=== PATIENT | male | born 1965 | race Caucasian/White ===

== ENCOUNTER → 2016-06-30 | Outpatient (CLI) | payer MEDICAID, MEDICARE | LOC: RAD 10:24 | PROVIDERS: ATTEND Urology | DX: N31.9 Neuromuscular dysfunction of bladder, unspecified (principal); R39.14 Feeling of incomplete bladder emptying | CPT/HCPCS: 76770 ==

== ENCOUNTER 2016-07-02 07:38 | Outpatient (CLI) | payer MEDICARE ==
[~2016-07-02 07:38] MED LIST: CONTAINER EMPTY IV PRN; DEXAMETHASONE SOD PHOS INJ 10 MG/1 ML VIAL IV PRN; DEXTROSE 5%-WATER 250 ML IV PRN; DIPHENHYDRAMINE HCL 50 MG/ML VIAL IV PRN; IMMUNE GLOB GAM CAPRY IV PRN; IMMUNE GLOB GAM CAPRYLATE IV PRN; [UNRECOGNIZED DRUG - OTHER] IV PRN
[2016-07-02 09:02] VITALS: BP 121/56
== END 2016-07-02 11:13 | disposition home or self-care (01) ==
LOC: II 07:38 → 5TH 07:39 → II 11:13
PROVIDERS: ATTEND Specialist
PROC: 3E033WK Introduction of Immunostimulator into Peripheral Vein, Percutaneous (ICD-10-PCS; principal; 2016-07-02)
PROC: 3E033GC Introduction of Other Therapeutic Substance into Peripheral Vein, Percutaneous Approach (ICD-10-PCS; 2016-07-02)
DX: D80.1 Nonfamilial hypogammaglobulinemia (principal)
CPT/HCPCS: 96365; 96366; 96375; J1561 ×2; J1200; A9270; J1100; 96367; J3490

== ENCOUNTER 2016-07-30 09:46 | Outpatient (CLI) | payer MEDICARE ==
[~2016-07-30 09:46] MED LIST changes: -CONTAINER EMPTY IV PRN; -IMMUNE GLOB GAM CAPRY IV PRN; -IMMUNE GLOB GAM CAPRYLATE IV PRN; +IMMUNE GLOB,GAM CAPRYLATE(IGG) 10 GM, IMMUNE GLOB,GAM CAPRYLATE(IGG) 20 GM in CONTAINER... IV PRN; -[UNRECOGNIZED DRUG - OTHER] IV PRN
[2016-07-30 10:46] VITALS: BP 117/68
== END 2016-07-30 13:09 | disposition hospice, home (50) ==
LOC: 5TH 09:46 → II 09:46
PROVIDERS: ATTEND Internal Medicine
PROC: 3E043GC Introduction of Other Therapeutic Substance into Central Vein, Percutaneous Approach (ICD-10-PCS; principal; 2016-07-30)
PROC: 3E043GC Introduction of Other Therapeutic Substance into Central Vein, Percutaneous Approach (ICD-10-PCS; 2016-07-30)
PROC: 3E043GC Introduction of Other Therapeutic Substance into Central Vein, Percutaneous Approach (ICD-10-PCS; 2016-07-30)
DX: D80.1 Nonfamilial hypogammaglobulinemia (principal)
CPT/HCPCS: 96365; 96366; 96375; J1561 ×2; J1200; A9270; J1100; 96367; J3490

== ENCOUNTER → 2016-08-05 | Outpatient (CLI) | payer MEDICAID, MEDICARE | LOC: RAD 09:19 | PROVIDERS: ATTEND Specialist | DX: R91.1 Solitary pulmonary nodule (principal); D80.1 Nonfamilial hypogammaglobulinemia; K92.1 Melena; R10.9 Unspecified abdominal pain | CPT/HCPCS: 71020; 74150 ==

== ENCOUNTER 2016-08-27 08:20 | Outpatient (CLI) | payer MEDICARE ==
[~2016-08-27 08:20] MED LIST changes: +DEXAMETHASONE SOD PHOSPHATE 10 MG in NORMAL SALINE 50 ML IV PRN; -IMMUNE GLOB,GAM CAPRYLATE(IGG) 10 GM, IMMUNE GLOB,GAM CAPRYLATE(IGG) 20 GM in CONTAINER... IV PRN; +IMMUNE GLOB,GAM CAPRYLATE(IGG) 20 GM, IMMUNE GLOB,GAM CAPRYLATE(IGG) 10 GM in CONTAINER... IV PRN
[2016-08-27 09:07] VITALS: BP 160/58
== END 2016-08-27 11:32 | disposition home or self-care (01) ==
LOC: II 08:20 → 5TH 08:21 → II 11:32
PROVIDERS: ATTEND Specialist
PROC: 3E033GC Introduction of Other Therapeutic Substance into Peripheral Vein, Percutaneous Approach (ICD-10-PCS; principal; 2016-08-27)
PROC: 3E033GC Introduction of Other Therapeutic Substance into Peripheral Vein, Percutaneous Approach (ICD-10-PCS; 2016-08-27)
PROC: 3E033GC Introduction of Other Therapeutic Substance into Peripheral Vein, Percutaneous Approach (ICD-10-PCS; 2016-08-27)
PROC: 3E033GC Introduction of Other Therapeutic Substance into Peripheral Vein, Percutaneous Approach (ICD-10-PCS; 2016-08-27)
PROC: 3E033GC Introduction of Other Therapeutic Substance into Peripheral Vein, Percutaneous Approach (ICD-10-PCS; 2016-08-27)
PROC: 3E033GC Introduction of Other Therapeutic Substance into Peripheral Vein, Percutaneous Approach (ICD-10-PCS; 2016-08-27)
PROC: 3E033GC Introduction of Other Therapeutic Substance into Peripheral Vein, Percutaneous Approach (ICD-10-PCS; 2016-08-27)
DX: D80.1 Nonfamilial hypogammaglobulinemia (principal)
CPT/HCPCS: 96365; 96366; 96375; J1561 ×2; J1200; A9270; J1100; 96374; J3490

== ENCOUNTER → 2016-08-29 | Outpatient (CLI) | payer MEDICARE ==
[2016-08-29 15:19] LABS: APPEARANCE,URINE CLEAR; BILIRUBIN,URINE NEGATIVE (NEGATIVE); GLUCOSE, URINE 50 mg/dL (NEGATIVE); KETONES,URINE NEGATIVE (NEGATIVE); LEUKOCYTE ESTERASE,URINE NEGATIVE (NEGATIVE); NITRITE,URINE NEGATIVE (NEGATIVE); PROTEIN,URINE NEGATIVE (NEGATIVE); URINE SPECIFIC GRAVITY 1.003; UROBILINOGEN,URINE NEGATIVE mg/dL (<2.0)
[2016-08-29 15:40] LABS: ANION GAP 17 (5-19); BLOOD UREA NITROGEN 33 mg/dL (7-20); CALCIUM 9.3 mg/dL (8.4-10.2); CARBON DIOXIDE 28 mmol/L (22-30); CHLORIDE 92 mmol/L (98-107); CREATININE RESULT 1.64 mg/dL (0.52-1.25); GLUCOSE 259 mg/dL (75-110); POTASSIUM 3.4 mmol/L (3.6-5.0); SODIUM 136.9 mmol/L (137-145)
[2016-08-31 08:37] LABS: CREATININE URINE 24.6 mg/dL (Not Estab.); MICROALBUMIN URINE 10.6 ug/mL (Not Estab.)
== END ==
LOC: OD 14:01
PROVIDERS: ATTEND Internal Medicine Nephrology
DX: N18.3 Chronic kidney disease, stage 3 (moderate) (principal)
CPT/HCPCS: 36415; 80048; 81001; 82043; 82570

== ENCOUNTER → 2016-09-09 | Outpatient (CLI) | payer MEDICARE ==
[2016-09-09 12:25] LABS: ABSOLUTE BASOPHILS # (AUTO) 0.1 10^3/uL (0.0-0.2); ABSOLUTE EOSINOPHILS # (AUTO) 0.2 10^3/uL (0.0-0.6); ABSOLUTE LYMPHOCYTES (AUTO) 0.8 10^3/uL (0.5-4.7); ABSOLUTE MONOCYTES (AUTO) 0.5 10^3/uL (0.1-1.4); ABSOLUTE NEUT (AUTO) 11.7 10^3/uL (1.7-8.2); BASOPHILS % (AUTO) 0.9 % (0-2); EOSINOPHILS % (AUTO) 1.3 % (0-6); HEMATOCRIT 25.3 % (37.9-51.0); HGB HCT DIFFERENCE -1.6; LYMPHOCYTES % (AUTO) 5.9 % (13-45); MEAN CORPUSCULAR HEMOGLOBIN 22.8 pg (27.0-33.4); MEAN CORPUSCULAR HGB CONC 31.4 g/dL (32.0-36.0); MEAN CORPUSCULAR VOLUME 73 fl (80-97); RED BLOOD COUNT 3.49 10^6/uL (4.35-5.55); RED CELL DISTRIBUTION WIDTH 19.2 % (11.5-14.0); SEGMENTED NEUTROPHILS % (AUTO) 87.9 % (42-78); WHITE BLOOD COUNT 13.3 10^3/uL (4.0-10.5)
[2016-09-09 12:38] LABS: ANION GAP 15 (5-19); BLOOD UREA NITROGEN 18 mg/dL (7-20); CALCIUM 9.3 mg/dL (8.4-10.2); CARBON DIOXIDE 26 mmol/L (22-30); CHLORIDE 102 mmol/L (98-107); CREATININE RESULT 1.53 mg/dL (0.52-1.25); GLUCOSE 281 mg/dL (75-110); POTASSIUM 5.1 mmol/L (3.6-5.0); SODIUM 142.6 mmol/L (137-145)
[2016-09-09 12:51] LABS: HEMOGLOBIN 7.9 g/dL (13.5-17.0)
== END ==
LOC: OD 09:25
PROVIDERS: ATTEND Family Medicine
DX: J40 Bronchitis, not specified as acute or chronic (principal); I50.9 Heart failure, unspecified
CPT/HCPCS: 36415; 71020; 80048; 83880; 85025

== ENCOUNTER 2016-09-12 12:35 | Outpatient (CLI) | payer MEDICARE ==
[2016-09-12 13:09] LABS: HEMOGLOBIN 8.4 g/dL (13.5-17.0); HGB HCT DIFFERENCE -0.8; MEAN CORPUSCULAR HEMOGLOBIN 23.3 pg (27.0-33.4); MEAN CORPUSCULAR HGB CONC 32.2 g/dL (32.0-36.0); MEAN CORPUSCULAR VOLUME 72 fl (80-97); RED CELL DISTRIBUTION WIDTH 19.7 % (11.5-14.0); WHITE BLOOD COUNT 15.4 10^3/uL (4.0-10.5)
[2016-09-12] MEDS ORDERED: NORMAL SALINE 1000 ML 1,000 ML IV PRN (13:49)
[2016-09-12] MEDS ORDERED: FUROSEMIDE INJ/PF 20 MG/2 ML SDV IV PRN (13:50)
[2016-09-12] MEDS ORDERED: ACETAMINOPHEN 325 MG TABLET PO PRN (13:50)
[2016-09-12] MEDS ORDERED: DIPHENHYDRAMINE HCL 25 MG CAPSULE PO PRN (13:50)
[2016-09-12 20:01] VITALS: BP 166/74
== END 2016-09-12 20:27 | disposition home or self-care (01) ==
LOC: II 12:35 → 2N 12:39 → 2S 17:15 → II 20:27
PROVIDERS: ATTEND Specialist
PROC: 30233N1 Transfusion of Nonautologous Red Blood Cells into Peripheral Vein, Percutaneous Approach (ICD-10-PCS; principal; 2016-09-12)
DX: D64.9 Anemia, unspecified (principal)
CPT/HCPCS: 86900; 86901; 36430; 86850; 86920; P9016; J1940

== ENCOUNTER 2016-09-19 09:02 | Outpatient (CLI) | payer MEDICARE ==
[~2016-09-19 09:02] MED LIST changes: -DEXAMETHASONE SOD PHOS INJ 10 MG/1 ML VIAL IV PRN; -DEXAMETHASONE SOD PHOSPHATE 10 MG in NORMAL SALINE 50 ML IV PRN; -DEXTROSE 5%-WATER 250 ML IV PRN; -DIPHENHYDRAMINE HCL 50 MG/ML VIAL IV PRN; +FERUMOXYTOL (NON-ESRD) 510 MG/NS 100 ML IV PRN; -IMMUNE GLOB,GAM CAPRYLATE(IGG) 20 GM, IMMUNE GLOB,GAM CAPRYLATE(IGG) 10 GM in CONTAINER... IV PRN; +NORMAL SALINE 250 ML IV PRN
[2016-09-19 09:43] VITALS: BP 143/72
== END 2016-09-19 10:25 | disposition home or self-care (01) ==
LOC: II 09:02 → 5TH 09:15 → II 10:25
PROVIDERS: ATTEND Specialist
PROC: 3E033GC Introduction of Other Therapeutic Substance into Peripheral Vein, Percutaneous Approach (ICD-10-PCS; principal; 2016-09-19)
DX: D50.0 Iron deficiency anemia secondary to blood loss (chronic) (principal); N18.3 Chronic kidney disease, stage 3 (moderate)
CPT/HCPCS: 96374; Q0138; 96365

== ENCOUNTER 2016-09-26 08:33 | Outpatient (CLI) | payer MEDICARE ==
[~2016-09-26 08:33] MED LIST changes: +DEXAMETHASONE SOD PHOSPHATE 10 MG in NORMAL SALINE 50 ML IV PRN; +DEXTROSE 5%-WATER 250 ML IV PRN; +DIPHENHYDRAMINE HCL 50 MG/ML VIAL IV PRN; +IMMUNE GLOB,GAM CAPRYLATE(IGG) 20 GM, IMMUNE GLOB,GAM CAPRYLATE(IGG) 10 GM in CONTAINER... IV PRN
[2016-09-26 08:54] VITALS: BP 145/78
== END 2016-09-26 11:14 | disposition home or self-care (01) ==
LOC: 5TH 08:33 → II 08:33
PROVIDERS: ATTEND Specialist
PROC: 3E033WK Introduction of Immunostimulator into Peripheral Vein, Percutaneous (ICD-10-PCS; principal; 2016-09-26)
PROC: 3E0333Z Introduction of Anti-inflammatory into Peripheral Vein, Percutaneous Approach (ICD-10-PCS; 2016-09-26)
DX: D80.1 Nonfamilial hypogammaglobulinemia (principal); D50.0 Iron deficiency anemia secondary to blood loss (chronic); N18.3 Chronic kidney disease, stage 3 (moderate)
CPT/HCPCS: 96365; 96366; 96367; 96375; 96361; J1561 ×2; Q0138; J1200; A9270; J1100; 96360; J3490

== ENCOUNTER → 2016-09-29 | Outpatient (CLI) | payer MEDICARE ==
[2016-09-29 12:36] LABS: APPEARANCE,URINE CLEAR; BILIRUBIN,URINE NEGATIVE (NEGATIVE); GLUCOSE, URINE NEGATIVE (NEGATIVE); KETONES,URINE NEGATIVE (NEGATIVE); LEUKOCYTE ESTERASE,URINE NEGATIVE (NEGATIVE); NITRITE,URINE NEGATIVE (NEGATIVE); PROTEIN,URINE NEGATIVE (NEGATIVE); URINE SPECIFIC GRAVITY 1.013; UROBILINOGEN,URINE NEGATIVE mg/dL (<2.0)
[2016-09-29 12:41] LABS: ABSOLUTE BASOPHILS # (AUTO) 0.2 10^3/uL (0.0-0.2); ABSOLUTE EOSINOPHILS # (AUTO) 0.4 10^3/uL (0.0-0.6); ABSOLUTE LYMPHOCYTES (AUTO) 2.8 10^3/uL (0.5-4.7); ABSOLUTE MONOCYTES (AUTO) 1.2 10^3/uL (0.1-1.4); ABSOLUTE NEUT (AUTO) 5.9 10^3/uL (1.7-8.2); EOSINOPHILS % (AUTO) 3.8 % (0-6); HEMOGLOBIN 11.9 g/dL (13.5-17.0); HGB HCT DIFFERENCE -0.3; LYMPHOCYTES % (AUTO) 26.4 % (13-45); MEAN CORPUSCULAR HEMOGLOBIN 24.8 pg (27.0-33.4); MEAN CORPUSCULAR HGB CONC 32.9 g/dL (32.0-36.0); MEAN CORPUSCULAR VOLUME 75 fl (80-97); MONOCYTES % (AUTO) 11.1 % (3-13); RED BLOOD COUNT 4.78 10^6/uL (4.35-5.55); RED CELL DISTRIBUTION WIDTH 22.8 % (11.5-14.0); SEGMENTED NEUTROPHILS % (AUTO) 56.7 % (42-78); WHITE BLOOD COUNT 10.4 10^3/uL (4.0-10.5)
[2016-09-29 12:50] LABS: ANION GAP 14 (5-19); BLOOD UREA NITROGEN 31 mg/dL (7-20); CALCIUM 9.5 mg/dL (8.4-10.2); CARBON DIOXIDE 28 mmol/L (22-30); CHLORIDE 101 mmol/L (98-107); CREATININE RESULT 1.62 mg/dL (0.52-1.25); GLUCOSE 145 mg/dL (75-110); POTASSIUM 4.6 mmol/L (3.6-5.0); SODIUM 142.8 mmol/L (137-145)
[2016-09-30 12:38] LABS: CREATININE URINE 106.1 mg/dL (Not Estab.); MICROALBUMIN URINE 15.5 ug/mL (Not Estab.)
== END ==
LOC: OD 11:15
PROVIDERS: ATTEND Internal Medicine Nephrology
DX: N18.3 Chronic kidney disease, stage 3 (moderate) (principal); R60.0 Localized edema; I99.9 Unspecified disorder of circulatory system
CPT/HCPCS: 36415; 80048; 81001; 82043; 82570; 85025

== ENCOUNTER 2016-10-08 07:30 | Day surgery (SDC) | payer MEDICARE ==
[~2016-10-08 07:30] MED LIST changes: -DEXAMETHASONE SOD PHOSPHATE 10 MG in NORMAL SALINE 50 ML IV PRN; -DEXTROSE 5%-WATER 250 ML IV PRN; -DIPHENHYDRAMINE HCL 50 MG/ML VIAL IV PRN; +DIPHENHYDRAMINE HCL 50 MG/ML VIAL ONE; +EPINEPHRINE INJ 1 MG/10 ML DISP.SYRIN ONE; -FERUMOXYTOL (NON-ESRD) 510 MG/NS 100 ML IV PRN; +FLUMAZENIL INJ 0.5 MG/5 ML VIAL IV ONE; +GLUCAGON,HUMAN RECOMB 1 MG INJ ONE; -IMMUNE GLOB,GAM CAPRYLATE(IGG) 20 GM, IMMUNE GLOB,GAM CAPRYLATE(IGG) 10 GM in CONTAINER... IV PRN; +NALOXONE HCL INJ/PF 0.4 MG/1 ML SDV ONE; -NORMAL SALINE 250 ML IV PRN; +ONDANSETRON HCL INJ/PF 4 MG/2 ML SDV ONE
[2016-10-08] MEDS: MIDAZOLAM 2 MG/2 ML INJ ONE ×4 (08:15→08:35)
[2016-10-08] MEDS: FENTANYL CITRATE INJ/PF 100 MCG/2 ML AMPUL ONE ×3 (08:17→08:40)
--- NOTE | 2016-10-08 09:45 | Operative Report ---
Operative Report DATE OF SURGERY: 10/08/16 Operative Report: The risks benefits and alternatives of the procedure explained to the patient in detail and informed consent is obtained that GIF Olympus video scope was inserted into the patient's mouth and hypopharynx the esophagus is identified intubated and insufflated the scope was then advanced through the esophagus stomach and duodenum retroflexion maneuver is done the esophagus stomach and first and second portions of the duodenum examined The risks, benefits and alternatives of the procedure including risks of bleeding, perforation requiring surgery are explained to the patient detail and informed consent is obtained. Patient is taken back to the endoscopy suite and placed in a left, lateral decubital position. A rectal examination was done which did not reveal any masses, tears or fissures. Timeout is called. Conscious sedation medications are provided. An Olympus video scope was inserted into the patient's rectum. The scope was then gradually advanced all the way to the cecum. The cecum was identified by the usual anatomical landmarks including the ileocecal valve as well as the appendiceal office. Photodocumentation is obtained. Scope was then sequentially pulled back creative rest segments of the colon including the ascending colon, hepatic flexure, transverse colon, splenic flexure, descending colon and finally into the rectosigmoid portions of the colon. Retroflexion maneuvers performed. PREOPERATIVE DIAGNOSIS: Possible GI bleed, melena POSTOPERATIVE DIAGNOSIS: Gastritis, status post biopsy rule out Helicobacter pylori. Cecal polyp removed via snare polypectomy. Internal hemorrhoids OPERATION: Colonoscopy with snare polypectomy. EGD with biopsy SURGEON: NADIA DONNELLY ANESTHESIA: Moderate Sedation - 6 mg of Versed, 150 g of fentanyl. Conscious sedation monitoring time 30 minutes. TISSUE REMOVED OR ALTERED: Colon polyp retrieved. Gastric mucosal specimen obtained rule out Helicobacter pylori COMPLICATIONS: None. ESTIMATED BLOOD LOSS: none. INTRAOPERATIVE FINDINGS: As described above. No active bleeding noted PROCEDURE: Patient tolerated procedure well. No immediate postprocedure complications are noted. Patient is discharged in good condition. Discharge date 10/08/2016. Discharge diet: Regular. Discharge activity: Regular. 2-3 week follow-up to discuss findings. Patient is instructed to call the office or proceed to the emergency room should there be any further problems or questions. We'll await on biopsies. Can resume his Xarelto tomorrow.
[2016-10-08 10:20] VITALS: BP 125/67
== END 2016-10-08 10:20 | disposition home or self-care (01) ==
LOC: END 07:30
PROVIDERS: ATTEND Internal Medicine Gastroenterology
PROC: 0DB68ZX Excision of Stomach, Via Natural or Artificial Opening Endoscopic, Diagnostic (ICD-10-PCS; principal; 2016-10-08 08:00)
PROC: 0DBH8ZX Excision of Cecum, Via Natural or Artificial Opening Endoscopic, Diagnostic (ICD-10-PCS; 2016-10-08 08:00)
DX: K62.5 Hemorrhage of anus and rectum (principal); K29.50 Unspecified chronic gastritis without bleeding; D12.0 Benign neoplasm of cecum; K64.8 Other hemorrhoids; J44.9 Chronic obstructive pulmonary disease, unspecified; I25.10 Atherosclerotic heart disease of native coronary artery without angina pectoris; I10 Essential (primary) hypertension; G47.33 Obstructive sleep apnea (adult) (pediatric); I48.0 Paroxysmal atrial fibrillation; D80.1 Nonfamilial hypogammaglobulinemia; E11.9 Type 2 diabetes mellitus without complications; E66.9 Obesity, unspecified; E78.00 Pure hypercholesterolemia, unspecified; Z68.38 Body mass index [BMI] 38.0-38.9, adult; Z79.01 Long term (current) use of anticoagulants; Z99.81 Dependence on supplemental oxygen; I69.354 Hemiplegia and hemiparesis following cerebral infarction affecting left non-dominant side; Z79.899 Other long term (current) drug therapy; Z79.4 Long term (current) use of insulin
CPT/HCPCS: 43239; 45385; 82962; 88305 ×2; J2250; J3010; J0171; J1200; J1610; J2310; J2405; J3490

== ENCOUNTER 2016-10-24 10:08 | Outpatient (CLI) | payer MEDICARE ==
[~2016-10-24 10:08] MED LIST changes: +DEXAMETHASONE SOD PHOSPHATE 10 MG in NORMAL SALINE 50 ML IV PRN; +DEXTROSE 5%-WATER 250 ML IV PRN; +DIPHENHYDRAMINE HCL 50 MG/ML VIAL IV PRN; -DIPHENHYDRAMINE HCL 50 MG/ML VIAL ONE; -EPINEPHRINE INJ 1 MG/10 ML DISP.SYRIN ONE; -FLUMAZENIL INJ 0.5 MG/5 ML VIAL IV ONE; -GLUCAGON,HUMAN RECOMB 1 MG INJ ONE; +IMMUNE GLOB,GAM CAPRYLATE(IGG) 20 GM, IMMUNE GLOB,GAM CAPRYLATE(IGG) 10 GM in CONTAINER... IV PRN; -NALOXONE HCL INJ/PF 0.4 MG/1 ML SDV ONE; -ONDANSETRON HCL INJ/PF 4 MG/2 ML SDV ONE
[2016-10-24 10:52] VITALS: BP 150/80
== END 2016-10-24 13:05 | disposition home or self-care (01) ==
LOC: II 10:08 → 5TH 10:09 → II 13:05
PROVIDERS: ATTEND Internal Medicine
PROC: 3E033WK Introduction of Immunostimulator into Peripheral Vein, Percutaneous (ICD-10-PCS; principal; 2016-10-24)
PROC: 3E0333Z Introduction of Anti-inflammatory into Peripheral Vein, Percutaneous Approach (ICD-10-PCS; 2016-10-24)
PROC: 3E033GC Introduction of Other Therapeutic Substance into Peripheral Vein, Percutaneous Approach (ICD-10-PCS; 2016-10-24)
DX: D80.1 Nonfamilial hypogammaglobulinemia (principal)
CPT/HCPCS: 96367; 96375; J1561 ×2; J1200; A9270; J1100; 96365; 96366; J3490

== ENCOUNTER → 2016-11-07 | Outpatient (CLI) | payer MEDICARE ==
--- NOTE | 2016-11-07 10:17 | RADIOLOGY REPORT (SQ) ---
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 Reconstructed coronal and sagittal MPR images reviewed. All images stored on PAC S. All CT scanners at this facility use dose modulation, iterative reconstruction, and/or weight based d osing when appropriate to reduce radiation dose to as low as reasonably achievable (ALARA). [facility]: Dose Right [facility]: CareDose [facility]: Dose Right [facility]: Teradose 4D [facility]: Shoulder Tap RADIATION DOSE: 23.10 mGy. LIMITATIONS: None. FINDINGS: SKULL BASE: Inferior brain parenchyma demonstrates mild prominence of the lateral and 3rd ventricles, similar compared to CT 02/19/2015. MAJOR SALIVARY GLANDS: No solid or cystic masses. No inflammatory changes. LYMPHADENOPATHY: No adenopathy. MUCOSAL MASSES OR ASYMMETRY: There is circumferential narrowing of the nasopharynx with moderate airw ay narrowing. This is related to prominent pterygoid muscles, medial deviation of the carotid vessel s, and circumferential mucous membrane thickening, measuring up to 6 mm in thickness. These changes are best shown on coronal images 54 through 58, and axial images 29 through 42. LARYNX/CORDS: No abnormal findings. LUNG APICES: Clear. BONES: Mild bilateral foraminal narrowing at C5-6 and C6-7 related to facet and uncovertebral hypertr ophy. THYROID: Normal size. No masses. PARANASAL SINUSES: Clear. OTHER: No other significant finding. IMPRESSION: Circumferential nasopharyngeal luminal narrowing from circumferential mucous membrane th ickening. No adenopathy. Areas of palpable concern in the neck were marked with BBs near the right and left mandibular angles. Deep to the skin markers bilaterally, no neck masses are identified. TECHNICAL DOCUMENTATION: JOB ID: [id number] Quality ID # [id number]: Final reports with documentation of one or more dose reduction techniques (e.g., Au tomated exposure control, adjustment of the mA and/or kV according to patient size, use of iterative reconstruction technique) 2010 [employer]- All Rights Reserved
== END ==
LOC: RAD 09:09
PROVIDERS: ATTEND Specialist
DX: C14.0 Malignant neoplasm of pharynx, unspecified (principal)
CPT/HCPCS: 70490

== ENCOUNTER 2016-11-21 08:17 | Outpatient (CLI) | payer MEDICARE ==
[~2016-11-21 08:17] MED LIST changes: +DEXAMETHASONE SOD PHOSPHATE 10 MG in DEXTROSE 5%-WATER 50 ML IV PRN; +IMMUNE GLOB,GAM CAPRYLATE(IGG) 10 GM, IMMUNE GLOB,GAM CAPRYLATE(IGG) 20 GM in CONTAINER... IV PRN; -IMMUNE GLOB,GAM CAPRYLATE(IGG) 20 GM, IMMUNE GLOB,GAM CAPRYLATE(IGG) 10 GM in CONTAINER... IV PRN
[2016-11-21 09:14] VITALS: BP 156/74
== END 2016-11-21 11:50 | disposition home or self-care (01) ==
LOC: II 08:17 → 5TH 08:22 → II 11:50
PROVIDERS: ATTEND Internal Medicine
PROC: 30233S1 Transfusion of Nonautologous Globulin into Peripheral Vein, Percutaneous Approach (ICD-10-PCS; principal; 2016-11-21)
DX: D80.1 Nonfamilial hypogammaglobulinemia (principal)
CPT/HCPCS: 96365; 96366; 96367; 96375; J1561 ×2; J1200; A9270; J1100; J3490

== ENCOUNTER → 2016-12-02 | Outpatient (CLI) | payer MEDICARE ==
--- NOTE | 2016-12-02 13:42 | RADIOLOGY REPORT (SQ) ---
EXAM DESCRIPTION: ANKLE RIGHT COMPLETE COMPLETED DATE/TIME: 12/02/2016 1:30 pm REASON FOR STUDY: UNSPECIFIED INJURY OF RIGHT ANKLE, INITIAL ENCOUNTER S99.921A UNSPECIFIED INJURY OF RIGHT FOOT, INITIAL ENCOUNTER S99.911A UNSPECIFIED INJURY OF RIGHT ANKLE, INITIAL ENCOUNTE COMPARISON: None. NUMBER OF VIEWS: Three views. TECHNIQUE: AP, lateral, and oblique radiographic images acquired of the right ankle. LIMITATIONS: None. FINDINGS: MINERALIZATION: Normal. BONES: No acute fracture or dislocation. No worrisome bone lesions. Small dorsal calcaneal spur. JOINTS: No effusions. SOFT TISSUES: No soft tissue swelling. No foreign body. OTHER: No other significant finding. IMPRESSION: NEGATIVE STUDY OF THE RIGHT ANKLE. NO RADIOGRAPHIC EVIDENCE OF ACUTE INJURY. TECHNICAL DOCUMENTATION: JOB ID: [id number] [employer]- All Rights Reserved
--- NOTE | 2016-12-02 13:44 | RADIOLOGY REPORT (SQ) ---
EXAM DESCRIPTION: FOOT RIGHT COMPLETE COMPLETED DATE/TIME: 12/02/2016 1:30 pm REASON FOR STUDY: UNSPEC. INJURY OF RIGHT FOOT INITIAL ENCOUNTER S99.921A UNSPECIFIED INJURY OF RIG HT FOOT, INITIAL ENCOUNTER S99.911A UNSPECIFIED INJURY OF RIGHT ANKLE, INITIAL ENCOUNTE COMPARISON: None. NUMBER OF VIEWS: Three views. TECHNIQUE: AP, lateral and oblique radiographic images acquired of the right foot. LIMITATIONS: None. FINDINGS: MINERALIZATION: Normal. BONES: No acute fracture or dislocation. No worrisome bone lesions. Small dorsal calcaneal spur. JOINTS: No tibiotalar joint effusion. Mild joint space narrowing at the 1st metatarsophalangeal join t. SOFT TISSUES: No soft tissue swelling. No foreign body. OTHER: No other significant finding. IMPRESSION: No acute findings TECHNICAL DOCUMENTATION: JOB ID: [id number] [employer]- All Rights Reserved
== END ==
LOC: OD 13:07
PROVIDERS: ATTEND Family Medicine
DX: S99.921A Unspecified injury of right foot, initial encounter (principal); S99.911A Unspecified injury of right ankle, initial encounter; X58.XXXA Exposure to other specified factors, initial encounter; Y93.9 Activity, unspecified; Y92.9 Unspecified place or not applicable

== ENCOUNTER 2016-12-19 07:57 | Outpatient (CLI) | payer MEDICARE ==
[~2016-12-19 07:57] MED LIST changes: -DEXAMETHASONE SOD PHOSPHATE 10 MG in DEXTROSE 5%-WATER 50 ML IV PRN; -IMMUNE GLOB,GAM CAPRYLATE(IGG) 10 GM, IMMUNE GLOB,GAM CAPRYLATE(IGG) 20 GM in CONTAINER... IV PRN; +IMMUNE GLOB,GAM CAPRYLATE(IGG) 20 GM, IMMUNE GLOB,GAM CAPRYLATE(IGG) 10 GM in CONTAINER... IV PRN
[2016-12-19 08:30] VITALS: BP 132/84
== END 2016-12-19 11:21 | disposition home or self-care (01) ==
LOC: II 07:57 → 5TH 07:58 → II 11:21
PROVIDERS: ATTEND Internal Medicine
PROC: 30233S1 Transfusion of Nonautologous Globulin into Peripheral Vein, Percutaneous Approach (ICD-10-PCS; principal; 2016-12-19)
PROC: 3E0333Z Introduction of Anti-inflammatory into Peripheral Vein, Percutaneous Approach (ICD-10-PCS; 2016-12-19)
PROC: 3E033GC Introduction of Other Therapeutic Substance into Peripheral Vein, Percutaneous Approach (ICD-10-PCS; 2016-12-19)
DX: D80.1 Nonfamilial hypogammaglobulinemia (principal)
CPT/HCPCS: 96367; 96375; J1561 ×2; J1200; A9270; J1100; 96365; 96366; J3490

== ENCOUNTER 2017-01-16 10:06 | Outpatient (CLI) | payer MEDICARE ==
[~2017-01-16 10:06] MED LIST changes: +CONTAINER EMPTY IV PRN; +IMMUNE GLOB GAM CAPRY IV PRN; +IMMUNE GLOB GAM CAPRYLATE IV PRN; -IMMUNE GLOB,GAM CAPRYLATE(IGG) 20 GM, IMMUNE GLOB,GAM CAPRYLATE(IGG) 10 GM in CONTAINER... IV PRN; +[UNRECOGNIZED DRUG - OTHER] IV PRN
[2017-01-16 11:17] VITALS: BP 138/73
== END 2017-01-16 12:45 | disposition home or self-care (01) ==
LOC: II 10:06 → 5TH 10:07 → II 12:45
PROVIDERS: ATTEND Internal Medicine
PROC: 30243S1 Transfusion of Nonautologous Globulin into Central Vein, Percutaneous Approach (ICD-10-PCS; principal; 2017-01-16)
PROC: 3E0433Z Introduction of Anti-inflammatory into Central Vein, Percutaneous Approach (ICD-10-PCS; 2017-01-16)
PROC: 3E043GC Introduction of Other Therapeutic Substance into Central Vein, Percutaneous Approach (ICD-10-PCS; 2017-01-16)
DX: D80.1 Nonfamilial hypogammaglobulinemia (principal)
CPT/HCPCS: 96367; 96375; J1561 ×2; J1200; A9270; J1100; 96365; J3490

== ENCOUNTER → 2017-01-23 | Outpatient (CLI) | payer MEDICARE ==
--- NOTE | 2017-01-23 12:48 | WOMENS IMAGING REPORT ---
EXAM DESCRIPTION: BILAT DIAGNOSTIC MAMMO W/CAD; U/S BREAST UNILAT LIMITED COMPLETED DATE/TIME: 01/23/2017 8:29 am; 01/23/2017 8:42 am REASON FOR STUDY: UNSPECIFIED LUMP IN BREAST; LUMP IN BREAST N63 UNSPECIFIED LUMP IN BREAST COMPARISON: Bilateral mammograms and ultrasound 03/20/2015 TECHNIQUE: Standard craniocaudal and mediolateral oblique views of each breast recorded using [employer] acquisition. Additional left male breast ultrasound was performed in the area of palpable abnormality indicated by the patient LIMITATIONS: None. FINDINGS: RIGHT BREAST MASSES: No suspicious masses. CALCIFICATIONS: No new or suspicious calcifications. ARCHITECTURAL DISTORTION: None. DEVELOPING DENSITY: None. ASYMMETRY: None noted. OTHER: No gynecomastia LEFT BREAST MASSES: No suspicious masses. CALCIFICATIONS: No new or suspicious calcifications. ARCHITECTURAL DISTORTION: None. DEVELOPING DENSITY: None. ASYMMETRY: None noted. OTHER: No gynecomastia. Findings seen in 2015 have resolved. Read with the assistance of CAD: .[facility] - R2 Cenova Version 1.3 .[facility] Imaging - R2 Cenova Version 1.3 .[facility] - R2 Cenova Version 2.4 [place] [place] Cenova Version 2.[place] .[facility] - R2 [employer]er Version 9.2 Left breast ultrasound: Patient indicates a palpable abnormality in the left upper abdomen/inframammary fold region in the an terior left chest wall. Ultrasound of this area demonstrates a well-circumscribed lipoma in the subc utaneous fat, with well-circumscribed margins, good acoustic through transmission and no internal col or flow. This measures 2.1 x 1.3 x 2.4 cm in size. IMPRESSION: Palpable finding left inferior male breast/anterior abdominal wall correlates with a 2.4 x 2.1 x 1.3 cm lipoma. Right male breast gynecomastia seen in 2015 has resolved. No mammographic evidence for male breast c ancer today. BREAST DENSITY: a. The breasts are almost entirely fatty. BIRAD: 2 Benign findings. RECOMMENDATION: RECOMMENDED FOLLOW UP: Clinical followup for left-sided lipoma. SPECIFIC INTERVENTION/IMAGING/CONSULTATION RECOMMENDED:No additional intervention/ imaging/consultati on needed at this time. COMMUNICATION:Patient notified by letter, findings discussed at the time of service as well. COMMENT: The patient has been notified of the results by letter per SA requirements. Additional no tification policies are in place for contacting patient with suspicious or incomplete findings. Quality ID #[id number]: The [employer] recommends an annual screening mammogram for women aged 40 years or over. This facility utilizes a reminder system to ensure that all patients receive reminder letters, and/or direct phone calls for appointments. This includes reminders for routine scr eening mammograms, diagnostic mammograms, or other Breast Imaging Interventions when appropriate. Th is patient will be placed in the appropriate reminder system. The [employer] (ACR) has developed recommendations for screening MRI of the breast s in certain patient populations, to be used in conjunction with mammography. Breast MRI surveillanc e may be appropriate for women with more than 20% lifetime risk of developing breast cancer as deter mined by genetic testing, significant family history of the disease, or history of mantle radiation f or Hodgkins Disease. ACR Practice Guidelines 2008. TECHNICAL DOCUMENTATION: FINDING NUMBER: (1) ASSESSMENT: (1) JOB ID: [id number] [employer]- All Rights Reserved
--- NOTE | 2017-01-23 12:48 | WOMENS IMAGING REPORT ---
EXAM DESCRIPTION: BILAT DIAGNOSTIC MAMMO W/CAD; U/S BREAST UNILAT LIMITED COMPLETED DATE/TIME: 01/23/2017 8:29 am; 01/23/2017 8:42 am REASON FOR STUDY: UNSPECIFIED LUMP IN BREAST; LUMP IN BREAST N63 UNSPECIFIED LUMP IN BREAST COMPARISON: Bilateral mammograms and ultrasound 03/20/2015 TECHNIQUE: Standard craniocaudal and mediolateral oblique views of each breast recorded using [employer] acquisition. Additional left male breast ultrasound was performed in the area of palpable abnormality indicated by the patient LIMITATIONS: None. FINDINGS: RIGHT BREAST MASSES: No suspicious masses. CALCIFICATIONS: No new or suspicious calcifications. ARCHITECTURAL DISTORTION: None. DEVELOPING DENSITY: None. ASYMMETRY: None noted. OTHER: No gynecomastia LEFT BREAST MASSES: No suspicious masses. CALCIFICATIONS: No new or suspicious calcifications. ARCHITECTURAL DISTORTION: None. DEVELOPING DENSITY: None. ASYMMETRY: None noted. OTHER: No gynecomastia. Findings seen in 2015 have resolved. Read with the assistance of CAD: .[facility] - R2 Cenova Version 1.3 .[facility] Imaging - R2 Cenova Version 1.3 .[facility] - R2 Cenova Version 2.4 [place] [place] Cenova [place] 2.4 .[facility] - R2 History Department Chair Version 9.2 Left breast ultrasound: Patient indicates a palpable abnormality in the left upper abdomen/inframammary fold region in the an terior left chest wall. Ultrasound of this area demonstrates a well-circumscribed lipoma in the subc utaneous fat, with well-circumscribed margins, good acoustic through transmission and no internal col or flow. This measures 2.1 x 1.3 x 2.4 cm in size. IMPRESSION: Palpable finding left inferior male breast/anterior abdominal wall correlates with a 2.4 x 2.1 x 1.3 cm lipoma. Right male breast gynecomastia seen in 2015 has resolved. No mammographic evidence for male breast c ancer today. BREAST DENSITY: a. The breasts are almost entirely fatty. BIRAD: 2 Benign findings. RECOMMENDATION: RECOMMENDED FOLLOW UP: Clinical followup for left-sided lipoma. SPECIFIC INTERVENTION/IMAGING/CONSULTATION RECOMMENDED:No additional intervention/ imaging/consultati on needed at this time. COMMUNICATION:Patient notified by letter, findings discussed at the time of service as well. COMMENT: The patient has been notified of the results by letter per SA requirements. Additional no tification policies are in place for contacting patient with suspicious or incomplete findings. Quality ID #[id number]: The [employer] recommends an annual screening mammogram for women aged 40 years or over. This facility utilizes a reminder system to ensure that all patients receive reminder letters, and/or direct phone calls for appointments. This includes reminders for routine scr eening mammograms, diagnostic mammograms, or other Breast Imaging Interventions when appropriate. Th is patient will be placed in the appropriate reminder system. The [employer] (ACR) has developed recommendations for screening MRI of the breast s in certain patient populations, to be used in conjunction with mammography. Breast MRI surveillanc e may be appropriate for women with more than 20% lifetime risk of developing breast cancer as deter mined by genetic testing, significant family history of the disease, or history of mantle radiation f or Hodgkins Disease. ACR Practice Guidelines 2008. TECHNICAL DOCUMENTATION: FINDING NUMBER: (1) ASSESSMENT: (1) JOB ID: [id number] [employer]- All Rights Reserved
== END ==
LOC: WI 07:46
PROVIDERS: ATTEND Internal Medicine
DX: N63 Unspecified lump in breast (principal)
CPT/HCPCS: 76642; G0204; 77066

== ENCOUNTER 2017-02-19 11:01 | Outpatient (CLI) | payer MEDICARE ==
[~2017-02-19 11:01] MED LIST changes: -CONTAINER EMPTY IV PRN; -IMMUNE GLOB GAM CAPRY IV PRN; -IMMUNE GLOB GAM CAPRYLATE IV PRN; +IMMUNE GLOB,GAM CAPRYLATE(IGG) 20 GM, IMMUNE GLOB,GAM CAPRYLATE(IGG) 10 GM in CONTAINER... IV PRN; -[UNRECOGNIZED DRUG - OTHER] IV PRN
[2017-02-19 11:40] VITALS: BP 165/86
== END 2017-02-19 13:31 | disposition home or self-care (01) ==
LOC: II 11:01 → 5TH 11:11 → II 13:31
PROVIDERS: ATTEND Internal Medicine
PROC: 30233S1 Transfusion of Nonautologous Globulin into Peripheral Vein, Percutaneous Approach (ICD-10-PCS; principal; 2017-02-19)
PROC: 3E0333Z Introduction of Anti-inflammatory into Peripheral Vein, Percutaneous Approach (ICD-10-PCS; 2017-02-19)
PROC: 3E033GC Introduction of Other Therapeutic Substance into Peripheral Vein, Percutaneous Approach (ICD-10-PCS; 2017-02-19)
DX: D80.1 Nonfamilial hypogammaglobulinemia (principal)
CPT/HCPCS: 96365; 96366; 96367; 96375; J1561 ×2; J1200; A9270; J1100; J3490

== ENCOUNTER → 2017-03-17 | Outpatient (CLI) | payer MEDICARE ==
[2017-03-17 13:32] LABS: ALBUMIN 3.7 g/dL (3.5-5.0); ANION GAP 13 (5-19); BLOOD UREA NITROGEN 21 mg/dL (7-20); CALCIUM 9.9 mg/dL (8.4-10.2); CARBON DIOXIDE 26 mmol/L (22-30); CHLORIDE 103 mmol/L (98-107); GLUCOSE 249 mg/dL (75-110); PHOSPHORUS 3.3 mg/dL (2.5-4.5); POTASSIUM 4.3 mmol/L (3.6-5.0); SODIUM 141.5 mmol/L (137-145)
[2017-03-23 12:15] LABS: MICROALBUMIN URINE 7.6 ug/mL (Not Estab.)
== END ==
LOC: OD 12:06
PROVIDERS: ATTEND Internal Medicine Nephrology
DX: N18.3 Chronic kidney disease, stage 3 (moderate) (principal); E55.9 Vitamin D deficiency, unspecified
CPT/HCPCS: 36415; 80048; 82040; 82043; 82306; 82570; 83970; 84100

== ENCOUNTER 2017-03-19 08:53 | Outpatient (CLI) | payer MEDICARE ==
[~2017-03-19 08:53] MED LIST changes: +DEXAMETHASONE SOD PHOSPHATE 10 MG in DEXTROSE 5%-WATER 50 ML IV PRN
[2017-03-19 10:01] VITALS: BP 130/64
== END 2017-03-19 12:55 | disposition home or self-care (01) ==
LOC: II 08:53 → 5TH 08:57 → II 12:55
PROVIDERS: ATTEND Internal Medicine
PROC: 30233S1 Transfusion of Nonautologous Globulin into Peripheral Vein, Percutaneous Approach (ICD-10-PCS; principal; 2017-03-19)
PROC: 3E0333Z Introduction of Anti-inflammatory into Peripheral Vein, Percutaneous Approach (ICD-10-PCS; 2017-03-19)
PROC: 3E033GC Introduction of Other Therapeutic Substance into Peripheral Vein, Percutaneous Approach (ICD-10-PCS; 2017-03-19)
DX: D80.1 Nonfamilial hypogammaglobulinemia (principal)
CPT/HCPCS: 96365; 96366; 96367; 96375; J1561 ×2; J1200; A9270; J1100; J3490

== ENCOUNTER 2017-05-14 09:15 | Outpatient (CLI) | payer MEDICARE ==
[~2017-05-14 09:15] MED LIST changes: -DEXAMETHASONE SOD PHOSPHATE 10 MG in NORMAL SALINE 50 ML IV PRN; -DEXTROSE 5%-WATER 250 ML IV PRN
[2017-05-14] MEDS: DEXTROSE 5%-WATER 250 ML IV PRN ×2 (09:43→09:56)
[2017-05-14 09:50] VITALS: BP 121/57
== END 2017-05-14 11:25 | disposition home or self-care (01) ==
LOC: II 09:15 → 5TH 09:16 → II 11:25
PROVIDERS: ATTEND Internal Medicine
PROC: 30233S1 Transfusion of Nonautologous Globulin into Peripheral Vein, Percutaneous Approach (ICD-10-PCS; principal; 2017-05-14)
PROC: 3E0333Z Introduction of Anti-inflammatory into Peripheral Vein, Percutaneous Approach (ICD-10-PCS; 2017-05-14)
PROC: 3E033GC Introduction of Other Therapeutic Substance into Peripheral Vein, Percutaneous Approach (ICD-10-PCS; 2017-05-14)
DX: D80.1 Nonfamilial hypogammaglobulinemia (principal)
CPT/HCPCS: 96365; 96366; 96367; J1561 ×2; J1200; A9270; J1100; 96374; J3490

== ENCOUNTER 2017-06-02 17:37 | Emergency (ER) | payer MEDICARE ==
[2017-06-02 17:58] VITALS: BP 127/54
[2017-06-02] MEDS ORDERED: LIDOCAINE 1% INJ-PF (10 MG/ML) 30 ML SDV INJ ONE (18:25)
[2017-06-02] MEDS ORDERED: CLINDAMYCIN HCL 150 MG CAPSULE PO ONE (18:27)
--- NOTE | 2017-06-02 18:30 | ER Document Report ---
ED Oral Problem - General Chief Complaint: Lip Injury Stated Complaint: LACERATION TO LIP/POST SEIZURE Time Seen by Provider: 06/02/17 18:13 Mode of Arrival: Ambulatory Information source: Patient Notes: 51-year-old male presents to ED for laceration to the mid lower lip. He states he had a pseudoseizure this morning about 9:00 and fell hitting his face. He states he was told that his pseudoseizures are due to stress. TRAVEL OUTSIDE OF THE [place] IN LAST 30 DAYS: No - HPI Patient complains to provider of: Other - Lower lip laceration Onset: This morning Onset: Sudden Quality of pain: Sharp Severity: Mild Pain Level: 2 Context: Other - Lip laceration Associated symptoms: Other - Lip laceration bottom lip inner Worsened by: Nothing Relieved by: Nothing Similar symptoms previously: No Recently seen / treated by doctor/dentist: No - Related Data Allergies/Adverse Reactions: budesonide [From Pulmicort] Allergy (Verified 06/02/17 17:40) Penicillins Allergy (Verified 06/02/17 17:40) Anaphylaxis Sulfa (Sulfonamide Antibiotics) Allergy (Verified 06/02/17 17:40) itching Past Medical History - General Information source: Patient - Social History Smoking Status: Current Every Day Smoker Cigarette use (# per day): Yes - 6 cigarettes a day Chew tobacco use (# tins/day): No Smoking Education Provided: Yes - Less than 2 minutes Frequency of alcohol use: None Drug Abuse: None Lives with: Family Family History: None, Reviewed & Not Pertinent Patient has suicidal ideation: No Patient has homicidal ideation: No - Past Medical History Cardiac Medical History: Reports: Hx Atrial Fibrillation, Hx Congestive Heart Failure, Hx Coronary Artery Disease, Hx Heart Attack, Hx Hypercholesterolemia, Hx Hypertension, Other - Pericardial effusion according to patient Pulmonary Medical History: Reports: Hx Asthma, Hx Bronchitis, Hx COPD, Hx Pneumonia, Other - Uses O2 at home EENT Medical History: Reports: None Neurological Medical History: Reports: Hx Cerebrovascular Accident, Hx Seizures - Patient states pseudoseizures stress induced Endocrine Medical History: Reports: Hx Diabetes Mellitus Type 2 Renal/ Medical History: Reports: Hx End Stage Renal Disease Malignancy Medical History: Reports None GI Medical History: Reports: Hx Gastroesophageal Reflux Disease Musculoskeltal Medical History: Reports Hx Arthritis - KNEES, Reports Hx Musculoskeletal Deformity, Reports Hx Musculoskeletal Trauma Skin Medical History: Reports None Psychiatric Medical History: Reports: Hx Depression Traumatic Medical History: Reports: Hx Fractures - Reattachment of the second finger right hand Infectious Medical History: Reports: None Past Surgical History: Reports: Hx Cardiac Catheterization, Hx Cholecystectomy, Hx Orthopedic Surgery - Right knee 6 reattachment of second finger right hand, Other - Cardiac ablation - Immunizations Hx Diphtheria, Pertussis, Tetanus Vaccination: Yes Hx Pneumococcal Vaccination: 10/13/12 Review of Systems - Review of Systems Constitutional: No symptoms reported EENT: Other - Lip laceration to the internal lip lower mid Cardiovascular: No symptoms reported Respiratory: No symptoms reported Gastrointestinal: No symptoms reported Genitourinary: No symptoms reported Male Genitourinary: No symptoms reported Musculoskeletal: No symptoms reported Skin: Other - Laceration to inner bottom lip Hematologic/Lymphatic: No symptoms reported Neurological/Psychological: No symptoms reported Physical Exam - Vital signs Vitals: Temp Pulse Resp BP Pulse Ox 97.9 F 70 18 127/54 H 96 06/02/17 17:57 06/02/17 17:57 06/02/17 17:57 06/02/17 17:57 06/02/17 17:57 Interpretation: Normal - General General appearance: Appears well, Alert - HEENT Head: Normocephalic, Atraumatic Eyes: Normal Pupils: PERRL Ears: Normal External canal: Normal Tympanic membrane: Normal Sinus: Normal Nasal: Normal Mouth/Lips: Normal, Laceration Mucous membranes: Normal Pharynx: Normal Neck: Normal - Respiratory Respiratory status: No respiratory distress Chest status: Nontender Breath sounds: Normal Chest palpation: Normal - Cardiovascular Rhythm: Regular Heart sounds: Normal auscultation Murmur: No - Abdominal Inspection: Normal Distension: No distension Bowel sounds: Normal Tenderness: Nontender Organomegaly: No organomegaly - Back Back: Normal, Nontender - Extremities General upper extremity: Normal inspection, Nontender, Normal color, Normal ROM , Normal temperature General lower extremity: Normal inspection, Nontender, Normal color, Normal ROM , Normal temperature, Normal weight bearing. No: Igor's sign - Neurological Neuro grossly intact: Yes Cognition: Normal Orientation: AAOx4 [place] Coma Scale Eye Opening: Spontaneous Love Coma Scale Verbal: Oriented Love Coma Scale Motor: Obeys Commands [place] Coma Scale Total: 15 Speech: Normal Motor strength normal: LUE, RUE, LLE, RLE Sensory: Normal - Psychological Associated symptoms: Normal affect, Normal mood - Skin Skin Temperature: Warm Skin Moisture: Dry Skin Color: Normal Skin irregularity: Laceration - Bottom inner lip middle Course - Re-evaluation Re-evalutation: 06/02/17 18:34 Patient states he did this laceration about 9:00 this morning he has been instructed that it the lip may not heal with sutures due to the length of time since he had the injury. Will try putting 1 to 2 sutures to try to pull the lip together. He has been informed that they might not heal. Will place on clindamycin and have follow-up with his primary doctor. - Vital Signs Vital signs: Temp Pulse Resp BP Pulse Ox 97.9 F 70 18 127/54 H 96 06/02/17 17:57 06/02/17 17:57 06/02/17 17:57 06/02/17 17:57 06/02/17 17:57 Procedures - Laceration/Wound Repair Lower lip internal Time completed: 19:05 Wound length (cm): 4 Wound's Depth, Shape: Irregular Laceration pre-procedure: Sterile PPE donned, Sterile drapes applied, Other Anesthetic type: 1% Lidocaine Volume Anesthetic (mLs): 3 Wound explored: Contaminated Irrigated w/ Saline (mLs): 100 Wound Repaired With: Sutures Suture Size/Type: Vicryl, 4:0 Number of Sutures: 3 Layer Closure?: No Post-procedure NV exam normal: Yes Complications: No - inner lip across the vermilian border Discharge - Discharge Clinical Impression: Fall Qualifiers: Encounter type: initial encounter Qualified Code(s): W19.XXXA - Unspecified fall, initial encounter Lip laceration Qualifiers: Encounter type: initial encounter Qualified Code(s): S01.511A - Laceration without foreign body of lip, initial encounter Condition: Stable Disposition: HOME, SELF-CARE Additional Instructions: Oral Laceration, Sutured The laceration in your mouth has been sutured because of its severity. Suturing does increase the risk of infection somewhat, as germs in the wound are trapped inside. The wound will appear white and rough tomorrow. This ugly appearance is normal for an oral laceration, and will persist until healing is complete. Do not "play" with the stitches with your tongue or teeth. Prevent swelling by resting for 24 hours. Avoid tart or spicy foods for a couple of days. If any signs of infection occur (swelling, redness of the skin directly over the laceration area, increasing tenderness, tender lumps below the jaw or on the sides of the neck, or fever), see the doctor immediately. Clindamycin You have been given a prescription for the antibiotic clindamycin. It is often prescribed for infections in the mouth, such as dental infections or abscesses, and for skin infections due to MRSA. It's important that you take all the medication, unless instructed otherwise by your physician. Failure to complete the entire course can result in relapse of your condition. Common side effects of antibiotics include nausea, intestinal cramping, or diarrhea. Women may develop vaginal yeast infections, and babies can get yeast (thrush) in the mouth following the use of antibiotics. Contact your physician if you develop significant side effects from this medication. Allergy to this antibiotic can result in hives, wheezing, faintness, or itching. If symptoms of allergy occur, stop the medication and call the doctor. Acetaminophen Acetaminophen may be taken for pain relief or fever control. It's much safer than aspirin, offering a wider range of "safe" dosages. It is safe during . Some brand names are Tylenol, Panadol, Datril, Anacin 3, Tempra, and Liquiprin. Acetaminophen can be repeated every four hours. The following are maximum recommended dosages: WEIGHT Dose Drops Elixir Chewable( 80mg) (LBS.) drprs=droppers tsp=teaspoon 6 40 mg .4 ml (1/2) 6-11 80 mg .8 ml (full) 1/2 tsp 1 tab 12-16 120 mg 1 1/2 drprs 3/4 tsp 1 1/2 tabs 17-23 160 mg 2 drprs 1 tsp 2 tabs 24-30 240 mg 3 drprs 1 1/2 tsp 3 tabs 30-35 320 mg 2 tsp 4 tabs 36-41 360 mg 2 1/4 tsp 4 1 /2 tabs 42-47 400 mg 2 1/2 tsp 5 tabs 48-53 480 mg 3 tsp 6 tabs 54-59 520 mg 3 1/4 tsp 6 1 /2 tabs 60-64 560 mg 3 1/2 tsp 7 tabs 65-70 600 mg 3 3/4 tsp 7 1 /2 tabs 71-76 640 mg 4 tsp 8 tabs 77-82 720 mg 4 1/2 tsp 9 tabs 83-88 800 mg 5 tsp 10 tabs >89 pounds or adults 650 mg to 900 mg Acetaminophen can be repeated every four hours. Maximum daily dose not to exceed 4000 mg. These maximum recommended dosages are slightly higher than the dosages written on the product container, but these dosages are very safe and well below the toxic dosage for acetaminophen. FOLLOW-UP CARE: If you have been referred to a physician for follow-up care, call the physician s office for an appointment as you were instructed or within the next two days. If you experience worsening or a significant change in your symptoms, notify the physician immediately or return to the Emergency Department at any time for re-evaluation. Prescriptions: Clindamycin HCl 300 mg PO TID #21 capsule Forms: Smoking Cessation Education, Elevated Blood Pressure Referrals: BENIGNO MELO MD [Primary Care Provider] - 06/05/17
[2017-06-02] MEDS ORDERED: DIPH/PERTUSS(ACELL)/TETANUS VAC/PF 0.5 ML SYR (>=10YO) IM ONE (18:59)
== END 2017-06-02 19:17 | disposition home or self-care (01) ==
LOC: ER 17:37
PROC: 0CQ1XZZ Repair Lower Lip, External Approach (ICD-10-PCS; principal; 2017-06-02)
DX: S01.511A Laceration without foreign body of lip, initial encounter (principal); W19.XXXA Unspecified fall, initial encounter; Z88.0 Allergy status to penicillin; Z88.2 Allergy status to sulfonamides; F17.210 Nicotine dependence, cigarettes, uncomplicated; I48.91 Unspecified atrial fibrillation; I25.10 Atherosclerotic heart disease of native coronary artery without angina pectoris; I25.2 Old myocardial infarction; E78.00 Pure hypercholesterolemia, unspecified; J44.9 Chronic obstructive pulmonary disease, unspecified; Z86.73 Personal history of transient ischemic attack (TIA), and cerebral infarction without residual deficits; E11.22 Type 2 diabetes mellitus with diabetic chronic kidney disease; I13.2 Hypertensive heart and chronic kidney disease with heart failure and with stage 5 chronic kidney disease, or end stage renal disease; N18.6 End stage renal disease; Z90.49 Acquired absence of other specified parts of digestive tract
CPT/HCPCS: 99282; 90471; 90715; 12013; A9270; J3490

== ENCOUNTER 2017-06-11 10:56 | Outpatient (CLI) | payer MEDICARE ==
[~2017-06-11 10:56] MED LIST changes: -DEXAMETHASONE SOD PHOSPHATE 10 MG in DEXTROSE 5%-WATER 50 ML IV PRN; +DEXAMETHASONE SOD PHOSPHATE 10 MG in NORMAL SALINE 50 ML IV PRN; +DEXTROSE 5%-WATER 250 ML IV PRN
[2017-06-11] MEDS ORDERED: [UNRECOGNIZED DRUG - OTHER] IV PRN ×4 (11:14)
[2017-06-11] MEDS ORDERED: IMMUNE GLOB GAM CAPRYLATE IV PRN ×4 (11:14)
[2017-06-11 13:10] VITALS: BP 151/81
== END 2017-06-11 13:57 | disposition home or self-care (01) ==
LOC: II 10:56 → 5TH 10:57 → II 13:57
PROVIDERS: ATTEND Internal Medicine
PROC: 30233S1 Transfusion of Nonautologous Globulin into Peripheral Vein, Percutaneous Approach (ICD-10-PCS; principal; 2017-06-11)
PROC: 3E0333Z Introduction of Anti-inflammatory into Peripheral Vein, Percutaneous Approach (ICD-10-PCS; 2017-06-11)
PROC: 3E033GC Introduction of Other Therapeutic Substance into Peripheral Vein, Percutaneous Approach (ICD-10-PCS; 2017-06-11)
DX: D80.1 Nonfamilial hypogammaglobulinemia (principal)
CPT/HCPCS: 96365; 96366; 96375; J1561 ×3; J1200; A9270; J1100; 96367; J3490

== ENCOUNTER 2017-07-09 11:04 | Outpatient (CLI) | payer MEDICARE ==
[~2017-07-09 11:04] MED LIST changes: +DEXAMETHASONE SOD PHOS INJ 10 MG/1 ML VIAL IV PRN; -DEXAMETHASONE SOD PHOSPHATE 10 MG in NORMAL SALINE 50 ML IV PRN; +IMMUNE GLOB GAM CAPRYLATE IV PRN; -IMMUNE GLOB,GAM CAPRYLATE(IGG) 20 GM, IMMUNE GLOB,GAM CAPRYLATE(IGG) 10 GM in CONTAINER... IV PRN; +[UNRECOGNIZED DRUG - OTHER] IV PRN
[2017-07-09 12:06] VITALS: BP 130/62
== END 2017-07-09 14:07 | disposition home or self-care (01) ==
LOC: II 11:04 → 5TH 11:17 → II 14:07
PROVIDERS: ATTEND Internal Medicine Hematology & Oncology
PROC: 30233S1 Transfusion of Nonautologous Globulin into Peripheral Vein, Percutaneous Approach (ICD-10-PCS; principal; 2017-07-09)
PROC: 3E0333Z Introduction of Anti-inflammatory into Peripheral Vein, Percutaneous Approach (ICD-10-PCS; 2017-07-09)
PROC: 3E033GC Introduction of Other Therapeutic Substance into Peripheral Vein, Percutaneous Approach (ICD-10-PCS; 2017-07-09)
DX: D80.1 Nonfamilial hypogammaglobulinemia (principal)
CPT/HCPCS: 96367; 96375; J1561 ×3; J1200; A9270; J1100; 96365; 96366; J3490

== ENCOUNTER → 2017-07-28 | Outpatient (CLI) | payer MEDICARE ==
[2017-07-28 17:05] LABS: ABSOLUTE BASOPHILS # (AUTO) 0.1 10^3/uL (0.0-0.2); ABSOLUTE EOSINOPHILS # (AUTO) 0.3 10^3/uL (0.0-0.6); ABSOLUTE LYMPHOCYTES (AUTO) 1.9 10^3/uL (0.5-4.7); ABSOLUTE MONOCYTES (AUTO) 0.8 10^3/uL (0.1-1.4); ABSOLUTE NEUT (AUTO) 7.6 10^3/uL (1.7-8.2); BASOPHILS % (AUTO) 0.8 % (0-2); EOSINOPHILS % (AUTO) 2.5 % (0-6); HEMATOCRIT 28.1 % (37.9-51.0); HEMOGLOBIN 9.2 g/dL (13.5-17.0); LYMPHOCYTES % (AUTO) 18.1 % (13-45); MEAN CORPUSCULAR HEMOGLOBIN 23.1 pg (27.0-33.4); MEAN CORPUSCULAR HGB CONC 32.9 g/dL (32.0-36.0); MEAN CORPUSCULAR VOLUME 70 fl (80-97); MONOCYTES % (AUTO) 7.1 % (3-13); PLATELET COUNT 292 10^3/uL (150-450); RED CELL DISTRIBUTION WIDTH 19.2 % (11.5-14.0); SEGMENTED NEUTROPHILS % (AUTO) 71.5 % (42-78); TOTAL CELLS COUNTED % (AUTO) 100 %; WHITE BLOOD COUNT 10.6 10^3/uL (4.0-10.5)
[2017-07-28 17:08] LABS: APPEARANCE,URINE CLEAR; BILIRUBIN,URINE NEGATIVE (NEGATIVE); COLOR,URINE YELLOW; GLUCOSE, URINE 50 mg/dL (NEGATIVE); KETONES,URINE NEGATIVE (NEGATIVE); LEUKOCYTE ESTERASE,URINE NEGATIVE (NEGATIVE); NITRITE,URINE NEGATIVE (NEGATIVE); PROTEIN,URINE NEGATIVE (NEGATIVE); URINE SPECIFIC GRAVITY 1.009; UROBILINOGEN,URINE NEGATIVE mg/dL (<2.0)
[2017-07-28 17:13] LABS: ANION GAP 15 (5-19); BLOOD UREA NITROGEN 59 mg/dL (7-20); CARBON DIOXIDE 22 mmol/L (22-30); CHLORIDE 99 mmol/L (98-107); GLUCOSE 141 mg/dL (75-110); POTASSIUM 4.2 mmol/L (3.6-5.0); SODIUM 135.5 mmol/L (137-145)
[2017-07-30 12:39] LABS: CREATININE URINE 106.2 mg/dL (Not Estab.); MICROALBUMIN URINE 5.5 ug/mL (Not Estab.)
== END ==
LOC: OD 15:57
PROVIDERS: ATTEND Internal Medicine Nephrology
DX: N18.3 Chronic kidney disease, stage 3 (moderate) (principal); E11.9 Type 2 diabetes mellitus without complications
CPT/HCPCS: 36415; 80048; 81001; 82043; 82570; 85025

== ENCOUNTER 2017-08-06 08:03 | Outpatient (CLI) | payer MEDICARE ==
[~2017-08-06 08:03] MED LIST changes: +ACETAMINOPHEN 325 MG TABLET PO PRN; +IRON DEXTRAN COMPLEX 25 MG in SYRINGE, DISPOSABLE, 1 EACH IV PRN; +IRON DEXTRAN COMPLEX 975 MG in NORMAL SALINE 1000 ML 1,000 ML IV PRN; +NORMAL SALINE 250 ML IV PRN
[2017-08-06 10:29] VITALS: BP 146/82
== END 2017-08-06 11:25 | disposition home or self-care (01) ==
LOC: II 08:03 → 5TH 08:08 → II 11:25
PROVIDERS: ATTEND Internal Medicine Hematology & Oncology
PROC: 30233S1 Transfusion of Nonautologous Globulin into Peripheral Vein, Percutaneous Approach (ICD-10-PCS; principal; 2017-08-06)
PROC: 3E033GC Introduction of Other Therapeutic Substance into Peripheral Vein, Percutaneous Approach (ICD-10-PCS; 2017-08-06)
DX: D80.1 Nonfamilial hypogammaglobulinemia (principal); D50.0 Iron deficiency anemia secondary to blood loss (chronic)
CPT/HCPCS: 96365; 96366; 96375; J1561 ×3; J1200; A9270; 96374; J1100; J1750; J3490; J7030

== ENCOUNTER → 2017-08-20 | Outpatient (CLI) | payer MEDICARE ==
[2017-08-20 09:28] LABS: ALBUMIN 4.3 g/dL (3.5-5.0); ANION GAP 15 (5-19); BLOOD UREA NITROGEN 22 mg/dL (7-20); CALCIUM 9.8 mg/dL (8.4-10.2); CARBON DIOXIDE 23 mmol/L (22-30); CHLORIDE 105 mmol/L (98-107); GLUCOSE 201 mg/dL (75-110); PHOSPHORUS 2.2 mg/dL (2.5-4.5); POTASSIUM 4.4 mmol/L (3.6-5.0); SODIUM 143.2 mmol/L (137-145)
== END ==
LOC: OD 08:29
PROVIDERS: ATTEND Internal Medicine Nephrology
DX: N17.9 Acute kidney failure, unspecified (principal); E55.9 Vitamin D deficiency, unspecified; E11.9 Type 2 diabetes mellitus without complications
CPT/HCPCS: 36415; 80048; 82040; 82306; 83970; 84100

== ENCOUNTER 2017-09-03 09:27 | Outpatient (CLI) | payer MEDICARE ==
[~2017-09-03 09:27] MED LIST changes: -ACETAMINOPHEN 325 MG TABLET PO PRN; -IRON DEXTRAN COMPLEX 25 MG in SYRINGE, DISPOSABLE, 1 EACH IV PRN; -IRON DEXTRAN COMPLEX 975 MG in NORMAL SALINE 1000 ML 1,000 ML IV PRN; -NORMAL SALINE 250 ML IV PRN
[2017-09-03 10:42] VITALS: BP 124/48
[2017-09-03] MEDS ORDERED: NORMAL SALINE 250 ML IV PRN (10:49)
[2017-09-03] MEDS ORDERED: FERUMOXYTOL (NON-ESRD) 510 MG/NS 100 ML IV PRN ×2 (10:50)
== END 2017-09-03 13:00 | disposition home or self-care (01) ==
LOC: II 09:27 → 5TH 09:29 → II 13:00
PROVIDERS: ATTEND Internal Medicine Hematology & Oncology
PROC: 3E033GC Introduction of Other Therapeutic Substance into Peripheral Vein, Percutaneous Approach (ICD-10-PCS; principal; 2017-09-03)
PROC: 30233S1 Transfusion of Nonautologous Globulin into Peripheral Vein, Percutaneous Approach (ICD-10-PCS; 2017-09-03)
PROC: 3E0333Z Introduction of Anti-inflammatory into Peripheral Vein, Percutaneous Approach (ICD-10-PCS; 2017-09-03)
DX: D80.1 Nonfamilial hypogammaglobulinemia (principal); D50.0 Iron deficiency anemia secondary to blood loss (chronic); N18.3 Chronic kidney disease, stage 3 (moderate)
CPT/HCPCS: 96367; 96375; J1561 ×3; Q0138; J1200; A9270; J1100; 96365; J3490

== ENCOUNTER 2017-09-10 07:33 | Outpatient (CLI) | payer MEDICARE ==
[~2017-09-10 07:33] MED LIST changes: -DEXAMETHASONE SOD PHOS INJ 10 MG/1 ML VIAL IV PRN; -DEXTROSE 5%-WATER 250 ML IV PRN; -DIPHENHYDRAMINE HCL 50 MG/ML VIAL IV PRN; +FERUMOXYTOL (NON-ESRD) 510 MG/NS 100 ML IV PRN; -IMMUNE GLOB GAM CAPRYLATE IV PRN; +NORMAL SALINE 250 ML IV PRN; -[UNRECOGNIZED DRUG - OTHER] IV PRN
[2017-09-10 08:06] VITALS: BP 114/60
== END 2017-09-10 09:20 | disposition home or self-care (01) ==
LOC: II 07:33 → 5TH 07:35 → II 09:20
PROVIDERS: ATTEND Internal Medicine
PROC: 3E033GC Introduction of Other Therapeutic Substance into Peripheral Vein, Percutaneous Approach (ICD-10-PCS; principal; 2017-09-10)
DX: D50.0 Iron deficiency anemia secondary to blood loss (chronic) (principal); N18.3 Chronic kidney disease, stage 3 (moderate)
CPT/HCPCS: 96367; Q0138; 96365

== ENCOUNTER → 2017-09-21 | Outpatient (CLI) | payer MEDICARE ==
[2017-09-21 12:58] LABS: ANION GAP 14 (5-19); BLOOD UREA NITROGEN 38 mg/dL (7-20); CALCIUM 9.3 mg/dL (8.4-10.2); CARBON DIOXIDE 28 mmol/L (22-30); CHLORIDE 100 mmol/L (98-107); GLUCOSE 138 mg/dL (75-110); POTASSIUM 4.3 mmol/L (3.6-5.0); SODIUM 141.6 mmol/L (137-145)
== END ==
LOC: OD 11:22
PROVIDERS: ATTEND Internal Medicine Nephrology
DX: N18.3 Chronic kidney disease, stage 3 (moderate) (principal)
CPT/HCPCS: 36415; 80048

== ENCOUNTER 2017-10-01 10:01 | Outpatient (CLI) | payer MEDICARE ==
[~2017-10-01 10:01] MED LIST changes: +DEXAMETHASONE SOD PHOS INJ 10 MG/1 ML VIAL IV PRN; +DEXTROSE 5%-WATER 250 ML IV PRN; +DIPHENHYDRAMINE HCL 50 MG/ML VIAL IV PRN; -FERUMOXYTOL (NON-ESRD) 510 MG/NS 100 ML IV PRN; +IMMUNE GLOB GAM CAPRYLATE IV PRN; -NORMAL SALINE 250 ML IV PRN; +[UNRECOGNIZED DRUG - OTHER] IV PRN
[2017-10-01 10:47] VITALS: BP 110/55
== END 2017-10-01 13:14 | disposition home or self-care (01) ==
LOC: II 10:01 → 5TH 10:03 → II 13:14
PROVIDERS: ATTEND Internal Medicine Hematology & Oncology
PROC: 30243S1 Transfusion of Nonautologous Globulin into Central Vein, Percutaneous Approach (ICD-10-PCS; principal; 2017-10-01)
PROC: 3E0433Z Introduction of Anti-inflammatory into Central Vein, Percutaneous Approach (ICD-10-PCS; 2017-10-01)
PROC: 3E043GC Introduction of Other Therapeutic Substance into Central Vein, Percutaneous Approach (ICD-10-PCS; 2017-10-01)
DX: D80.1 Nonfamilial hypogammaglobulinemia (principal)
CPT/HCPCS: 96367; 96375; J1561 ×3; J1200; A9270; J1100; 96365; 96366; J3490

== ENCOUNTER 2017-10-29 09:46 | Outpatient (CLI) | payer MEDICARE ==
[2017-10-29 10:34] VITALS: BP 82/39
== END 2017-10-29 10:55 | disposition other institution (70) ==
LOC: II 09:46 → 5TH 09:48 → II 10:55
PROVIDERS: ATTEND Internal Medicine Hematology & Oncology
DX: D80.1 Nonfamilial hypogammaglobulinemia (principal); Z53.8 Procedure and treatment not carried out for other reasons
CPT/HCPCS: J1561; J1100; J3490

== ENCOUNTER 2017-10-29 11:06 | Inpatient (IN) | payer MEDICARE ==
[2017-10-29 11:42] LABS: ABSOLUTE BASOPHILS # (AUTO) 0.1 10^3/uL (0.0-0.2); ABSOLUTE EOSINOPHILS # (AUTO) 0.3 10^3/uL (0.0-0.6); ABSOLUTE LYMPHOCYTES (AUTO) 2.1 10^3/uL (0.5-4.7); ABSOLUTE MONOCYTES (AUTO) 0.9 10^3/uL (0.1-1.4); ABSOLUTE NEUT (AUTO) 6.7 10^3/uL (1.7-8.2); BASOPHILS % (AUTO) 1.3 % (0-2); EOSINOPHILS % (AUTO) 3.1 % (0-6); HEMATOCRIT 34.4 % (37.9-51.0); HEMOGLOBIN 11.6 g/dL (13.5-17.0); LYMPHOCYTES % (AUTO) 20.7 % (13-45); MEAN CORPUSCULAR HGB CONC 33.8 g/dL (32.0-36.0); MEAN CORPUSCULAR VOLUME 80 fl (80-97); PLATELET COUNT 218 10^3/uL (150-450); RED CELL DISTRIBUTION WIDTH 13.9 % (11.5-14.0); SEGMENTED NEUTROPHILS % (AUTO) 65.9 % (42-78); TOTAL CELLS COUNTED % (AUTO) 100 %; WHITE BLOOD COUNT 10.1 10^3/uL (4.0-10.5)
[2017-10-29 11:55] LABS: ALANINE AMINOTRANSFERASE 20 U/L (21-72); ALKALINE PHOSPHATASE 88 U/L (38-126); ANION GAP 15 (5-19); ASPARTATE AMINO TRANSFERASE 10 U/L (17-59); BILIRUBIN,DIRECT 0.3 mg/dL (0.0-0.4); BILIRUBIN,TOTAL 0.3 mg/dL (0.2-1.3); BLOOD UREA NITROGEN 81 mg/dL (7-20); CALCIUM 9.2 mg/dL (8.4-10.2); CARBON DIOXIDE 26 mmol/L (22-30); CHLORIDE 98 mmol/L (98-107); CREATINE KINASE 75 U/L (55-170); GLUCOSE 89 mg/dL (75-110); SODIUM 139.4 mmol/L (137-145); TOTAL PROTEIN 6.1 g/dL (6.3-8.2)
[2017-10-29 12:06] LABS: CREATINE KINASE MB 0.72 ng/mL (<4.55)
[2017-10-29 12:07] LABS: TROPONIN I < 0.012 ng/mL
--- NOTE | 2017-10-29 12:10 | RADIOLOGY REPORT (SQ) ---
EXAM DESCRIPTION: CHEST SINGLE VIEW COMPLETED DATE/TIME: 10/29/2017 11:56 am REASON FOR STUDY: low hr COMPARISON: AP chest 09/09/2016 EXAM PARAMETERS: NUMBER OF VIEWS: One view. TECHNIQUE: Single frontal radiographic view of the chest acquired. RADIATION DOSE: NA LIMITATIONS: Portable chest with the EKG leads and defibrillator pads over the chest FINDINGS: LUNGS AND PLEURA: No opacities, masses or pneumothorax. No pleural effusion. MEDIASTINUM AND HILAR STRUCTURES: No masses. Contour normal. HEART AND VASCULAR STRUCTURES: Heart normal in size. Normal vasculature. BONES: No acute findings. HARDWARE: None in the chest. OTHER: No other significant finding. IMPRESSION: NO ACUTE RADIOGRAPHIC FINDING IN THE CHEST. TECHNICAL DOCUMENTATION: JOB ID: [id number] [employer]- All Rights Reserved Reading location - IP/workstation name: [email or web address]
[2017-10-29] MEDS: NORMAL SALINE 1000 ML 1,000 ML IV PRN ×3 (12:47→14:55)
--- NOTE | 2017-10-29 12:59 | ER Document Report ---
ED General - General Chief Complaint: Dizziness Stated Complaint: LOW HEART RATE Time Seen by Provider: 10/29/17 11:26 Mode of Arrival: Ambulatory Information source: Patient Notes: 52-year-old male history of hypo-gamma globulin anemia presents with complaints of lightheadedness dizziness. Patient took his medications today and was going to have an infusion of immunoglobulin that he normally receives when his vital signs were taken he was noted to be dizzy hypotensive bradycardic. Patient denies any fevers or chills TRAVEL OUTSIDE OF THE [place] IN LAST 30 DAYS: No - HPI Onset: Just prior to arrival Onset/Duration: Sudden Quality of pain: No pain Severity: Mild Pain Level: Denies Associated symptoms: None - Related Data Allergies/Adverse Reactions: budesonide [From Pulmicort] Allergy (Verified 06/02/17 17:40) Penicillins Allergy (Verified 06/02/17 17:40) Anaphylaxis Sulfa (Sulfonamide Antibiotics) Allergy (Verified 06/02/17 17:40) itching Past Medical History - Social History Smoking Status: Never Smoker Cigarette use (# per day): No Chew tobacco use (# tins/day): No Smoking Education Provided: No Family History: None, Reviewed & Not Pertinent - Past Medical History Cardiac Medical History: Reports: Hx Atrial Fibrillation, Hx Congestive Heart Failure, Hx Coronary Artery Disease, Hx Heart Attack, Hx Hypercholesterolemia, Hx Hypertension Pulmonary Medical History: Reports: Hx Asthma, Hx Bronchitis, Hx COPD, Hx Pneumonia Denies: Hx Tuberculosis Neurological Medical History: Reports: Hx Cerebrovascular Accident, Hx Seizures - 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 Denies: Hx Peritoneal Dialysis GI Medical History: Reports: Hx Gastroesophageal Reflux Disease Musculoskeltal Medical History: Reports Hx Arthritis - KNEES, Reports Hx Musculoskeletal Deformity, Reports Hx Musculoskeletal Trauma Psychiatric Medical History: Reports: Hx Depression Traumatic Medical History: Reports: Hx Fractures - Reattachment of the second finger right hand Past Surgical History: Reports: Hx Cardiac Catheterization, Hx Cholecystectomy, Hx Orthopedic Surgery - Right knee 6 reattachment of second finger right hand, Other - Cardiac ablation - Immunizations Hx Diphtheria, Pertussis, Tetanus Vaccination: Yes Hx Pneumococcal Vaccination: 10/13/12 Review of Systems - Review of Systems Notes: REVIEW OF SYSTEMS: CONSTITUTIONAL : Denies fever, chills, or sweats. Denies recent illness. EENT: Denies eye, ear, throat, or mouth pain or symptoms. Denies nasal or sinus congestion or discharge. Denies throat, tongue, or mouth swelling or difficulty swallowing. CARDIOVASCULAR: Denies chest pain. Denies palpitations or racing or irregular heart beat. Denies ankle edema. RESPIRATORY: Denies cough, cold, or chest congestion. Denies shortness of breath, difficulty breathing, or wheezing. GASTROINTESTINAL: Denies abdominal pain or distention. Denies nausea, vomiting , or diarrhea. Denies blood in vomitus, stools, or per rectum. Denies black, tarry stools. Denies constipation. GENITOURINARY: Denies difficulty urinating, painful urination, burning, frequency, blood in urine, or discharge. MUSCULOSKELETAL: Denies back or neck pain or stiffness. Denies joint pain or swelling. SKIN: Denies rash, lesions or sores. HEMATOLOGIC : Denies easy bruising or bleeding. LYMPHATIC: Denies swollen, enlarged glands. NEUROLOGICAL: Admits to dizziness lightheadedness PSYCHIATRIC: Denies anxiety or stress. Denies depression, suicidal ideation, or homicidal ideation. ALL OTHER SYSTEMS REVIEWED AND NEGATIVE. Dictation was performed using [employer] voice recognition software PHYSICAL EXAMINATION: GENERAL: Chronically ill-appearing male hypotensive HEAD: Atraumatic, normocephalic. EYES: Pupils equal round and reactive to light, extraocular movements intact, sclera anicteric, conjunctiva are normal. ENT: Nares patent, oropharynx clear without exudates. Moist mucous membranes. NECK: Normal range of motion, supple without lymphadenopathy LUNGS: Breath sounds clear to auscultation bilaterally and equal. No wheezes rales or rhonchi. Patient on chronic 2 L nasal cannula HEART: Regular rate and rhythm without murmurs ABDOMEN: Soft, nontender, nondistended abdomen. No guarding, no rebound. No masses appreciated. Musculoskeletal: Normal range of motion, no pitting or edema. No cyanosis. NEUROLOGICAL: Cranial nerves grossly intact. Normal speech, normal gait. Normal sensory, motor exams PSYCH: Normal mood, normal affect. SKIN: Warm, Dry, normal turgor, no rashes or lesions noted. Physical Exam - Vital signs Vitals: Temp Resp Pulse Ox 98.2 F 19 97 10/29/17 11:13 10/29/17 11:13 10/29/17 11:13 Course - Re-evaluation Re-evalutation: 10/29/17 15:52 Patient's creatinine has increased significantly from his previous lab result only 1 month prior. I believe as a result his blood pressure medications have not been infiltrated appropriately and patient has become quite hypotensive and dizzy and bradycardic. Blood pressure improved after IV fluids however he has stayed in the upper 40s Patient will be admitted to the hospitalist service - Vital Signs Vital signs: Temp Pulse Resp BP Pulse Ox 98.2 F 15 102/38 L 95 10/29/17 11:13 10/29/17 13:32 10/29/17 13:32 10/29/17 13:32 - Laboratory Result Diagrams: 10/29/17 11:13 10/29/17 11:13 Laboratory results interpreted by me: 10/29/17 10/29/17 11:13 11:13 RBC 4.30 L Hgb 11.6 L Hct 34.4 L BUN 81 H Creatinine 4.02 H Est GFR ( Amer) 19 L Est GFR (Non-Af Amer) 16 L AST 10 L ALT 20 L Total Protein 6.1 L Critical Care Note - Critical Care Note Total time excluding time spent on procedures (mins): 44 Comments: 44 minutes of critical care time spent in direct contact evaluating and reevaluating the patient, treating symptoms, reviewing labs and studies and speaking with family and consultants excluding any procedures Discharge - Discharge Clinical Impression: Acute on chronic kidney disease, stage 4, Hypotension due to medication, Bradycardia Chronic obstructive pulmonary disease (COPD) Qualifiers: COPD type: unspecified COPD Qualified Code(s): J44.9 - Chronic obstructive pulmonary disease, unspecified Condition: Fair Disposition: ADMITTED INPATIENT Admitting Provider: Hospitalist Unit Admitted: [facility]
[2017-10-29] MEDS ORDERED: GUAIFENESIN SYRP 200 MG/10 ML UDC PO PRN (13:49)
[2017-10-29] MEDS ORDERED: INSULIN LISPRO 100 UNIT/ML 3 ML VIAL SUBCUT PRN (14:00)
[2017-10-29] MEDS ORDERED: GLUCAGON,HUMAN RECOMB 1 MG INJ IM PRN (14:00)
[2017-10-29] MEDS ORDERED: DEXTROSE 50%-WATER 25 GM/50 ML DISP.SYRIN IV PRN ×2 (14:00)
[2017-10-29] MEDS ORDERED: DEXTROSE 40% GEL 15 GM TUBE PO PRN ×2 (14:00)
--- NOTE | 2017-10-29 14:16 | PDOC H&P ---
History of Present Illness Admission Date/PCP: 10/29/17 13:31 BENIGNO MELO MD Patient complains of: Dizziness History of Present Illness: CH[place] GIBSON is a 52 year old male With past medical history significant for stage III kidney disease with baseline creatinine of 1.79, diabetes mellitus, COPD on home oxygen hypogammaglobinemia on monthly IV myoglobulin, hypertension, chronic back pain both to emergency room from infusion center for evaluation of hypotension and bradycardia Patient came today to infusion center for his usual IV immunoglobulin, prior to initiation checked his vital sign patient heart rate was in the 40s and blood pressure was 80/50, due to that he was sent directly to emergency room. Symptom cruz patient has been having dizziness pale with change of position for the past 1 months and over the past few days symptom has gotten worse When he was seen in the emergency room today he was hypotensive and bradycardic in the 40s, he was given IV fluid bolus and blood pressure improved to 98/70 with map of 69. At the time of my evaluation patient denies chest pain nausea vomiting diarrhea In the evening he took clonidine 0.1 and hydralazine 50 mg and this morning verapamil 240 mg. 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 Endocrine Medical History: Reports: Diabetes Mellitus Type 1, Diabetes Mellitus Type 2 Renal/ Medical History: Reports: End Stage Renal Disease GI Medical History: Reports: Gastroesophageal Reflux Disease Musculoskeltal Medical History: Reports: Arthritis - KNEES Psychiatric Medical History: Reports: Depression Hematology: Reports: Anemia Past Surgical History Past Surgical History: Reports: Cardiac Catheterization, Cholecystectomy, Orthopedic Surgery - Right knee 6 reattachment of second finger right hand, Other - Cardiac ablation Social History Smoking Status: Current Every Day Smoker Frequency of Alcohol Use: None Hx Recreational Drug Use: No Drugs: None Hx Prescription Drug Abuse: No Family History Family History: None, Reviewed & Not Pertinent Parental Family History Reviewed: Yes Children Family History Reviewed: Yes Sibling(s) Family History Reviewed.: Yes Medication/Allergy Home Medications: Amitriptyline HCl [Elavil 25 mg Tablet] 25 mg PO DAILY 10/10/14 Furosemide [Lasix] 80 mg PO BID 10/10/14 Gabapentin 800 mg PO TID 10/10/14 Gemfibrozil [Lopid] 600 mg PO BID 10/10/14 Lorazepam 1 mg PO TID 10/10/14 Tramadol HCl 100 mg PO BID 10/10/14 Trazodone HCl [Desyrel 50 mg Tablet] 3 tab PO QHS 10/10/14 Zolpidem Tartrate 10 mg PO QHS PRN 10/10/14 Potassium Chloride 20 meq PO BID 02/19/15 Testosterone Cypionate [Depo-Testosterone] 1 ml IM ASDIR PRN 02/19/15 Bumetanide [Bumex 2 mg Tablet] 1 tab PO DAILY 09/12/16 Duloxetine HCl [Cymbalta] 60 mg PO DAILY 09/12/16 Ferrous Fumarate [Ferretts] 325 mg PO DAILY 09/12/16 Flecainide Acetate [Tambocor 100 Mg Tablet] 100 mg PO DAILY 09/12/16 [place]-3/Dha/Epa/Fish Oil [[place] 3 500 Softgel] 1 cap PO DAILY 09/12/16 Rivaroxaban [Xarelto 10 mg Tablet] 20 mg PO DAILY 09/12/16 Verapamil HCl [Verapamil ER] 240 mg PO DAILY 09/12/16 Clonidine HCl [Clonidine HCl ER] 2 tab PO QHS 10/07/16 Insulin Aspart [Novolog Flexpen] 0 - 40 unit SUBCUT .SLD SCALE PRN 10/07/16 Insulin Regular, Human [Humulin R (Hi-Dose) Insulin 500 unit/mL] 60 unit SUBCUT TID 10/07/16 Clindamycin HCl 300 mg PO TID #21 capsule 06/02/17 Allergies/Adverse Reactions: budesonide [From Pulmicort] Allergy (Verified 06/02/17 17:40) Penicillins Allergy (Verified 06/02/17 17:40) Anaphylaxis Sulfa (Sulfonamide Antibiotics) Allergy (Verified 06/02/17 17:40) itching Review of Systems ROS unobtainable: Other - Awake alert 4 Constitutional: ABSENT: chills, fever(s), headache(s), weight gain, weight loss Eyes: ABSENT: visual disturbances Ears: ABSENT: hearing changes Cardiovascular: ABSENT: chest pain, dyspnea on exertion, edema, orthropnea, palpitations Respiratory: ABSENT: cough, hemoptysis Gastrointestinal: ABSENT: abdominal pain, constipation, diarrhea, hematemesis, hematochezia, nausea, vomiting Genitourinary: ABSENT: dysuria, hematuria Musculoskeletal: ABSENT: joint swelling Integumentary: ABSENT: rash, wounds Neurological: PRESENT: dizziness - For the past 1 months. ABSENT: abnormal gait , abnormal speech, confusion, focal weakness, syncope Psychiatric: ABSENT: anxiety, depression, homidical ideation, suicidal ideation Endocrine: ABSENT: cold intolerance, heat intolerance, polydipsia, polyuria Hematologic/Lymphatic: ABSENT: easy bleeding, easy bruising Physical Exam Vital Signs: Temp Pulse Resp BP Pulse Ox 98.2 F 15 102/38 L 95 10/29/17 11:13 10/29/17 13:32 10/29/17 13:32 10/29/17 13:32 General appearance: PRESENT: no acute distress, well-developed, well-nourished Head exam: PRESENT: atraumatic, normocephalic Eye exam: PRESENT: conjunctiva pink, EOMI, PERRLA. ABSENT: scleral icterus Ear exam: PRESENT: normal external ear exam Mouth exam: PRESENT: moist, tongue midline Neck exam: ABSENT: carotid bruit, JVD, lymphadenopathy, thyromegaly Respiratory exam: PRESENT: clear to auscultation jey. ABSENT: rales, rhonchi, wheezes Cardiovascular exam: PRESENT: RRR. ABSENT: diastolic murmur, rubs, systolic murmur Pulses: PRESENT: normal dorsalis pedis pul Vascular exam: PRESENT: normal capillary refill GI/Abdominal exam: PRESENT: normal bowel sounds, soft. ABSENT: distended, guarding, mass, organolmegaly, rebound, tenderness Rectal exam: PRESENT: deferred Extremities exam: PRESENT: full ROM. ABSENT: calf tenderness, clubbing, pedal edema Neurological exam: PRESENT: alert, awake, oriented to person, oriented to place , oriented to time, oriented to situation, CN II-XII grossly intact. ABSENT: motor sensory deficit Psychiatric exam: PRESENT: appropriate affect, normal mood. ABSENT: homicidal ideation, suicidal ideation Skin exam: PRESENT: dry, intact, warm. ABSENT: cyanosis, rash Results EKG Comments: EKG reviewed independently shows sinus bradycardia at a rate of [address] abnormality Impressions: Chest X-Ray 10/29/17 11:31 IMPRESSION: NO ACUTE RADIOGRAPHIC FINDING IN THE CHEST. Assessment & Plan - Diagnosis (2) Hypotension due to drugs Is this a current diagnosis for this admission?: Yes (3) Bradycardia Is this a current diagnosis for this admission?: Yes (4) Acute on chronic kidney disease, stage 4 Is this a current diagnosis for this admission?: Yes - Inpatient Certification Based on my medical assessment, after consideration of the patient's comorbidities, presenting symptoms, or acuity I expect that the services needed warrant INPATIENT care.: Yes I certify that my determination is in accordance with my understanding of Medicare's requirements for reasonable and necessary INPATIENT services [42 CFR 412.3e].: Yes Medical Necessity: Need Close Monitoring Due to Risk of Patient Decompensation - Patient will need currently during the hospital stating for acute renal failure bradycardia and hypotension currently resuscitated with IV fluid, Need For IV Fluids, Need For Continuous Telemetry Monitoring - Plan Summary Plan Summary: This is a 52-year-old male with multiple comorbidities who presents to emergency room for evaluation of bradycardia and hypotension due to his home medications patient has been having dizziness spell for almost a months, creatinine has gotten worse from 1.79-4.02 His heart rate currently is in the low 40s blood pressure is 90s systolic and 60s diastolic 1. Acute on chronic renal failure patient has stage III kidney disease with baseline creatinine of 1.79, creatinine has gotten worse to 4.02 this is due to the hypotensive episode from blood pressure medications leading into possible ATN, will hold blood pressure medications, he will be hydrated with IV fluids at 1 25 mL/h with NS monitor BMP daily if no response by tomorrow consider calling nephrology evaluation 2.hypotension and bradycardia atherogenic, bradycardia is due to the calcium channel edison, patient will receive glucagon 0.5 IV if heart rate continued to drop we will consider glucagon drip, hydrate with IV fluid hold blood pressure medications 3.history of hypogammaglobinemia, once patient is stabilized consider giving IVIG before discharge home 4.type 2 diabetes mellitus patient who placed on with sliding scale insulin DVT prophylaxis heparin subcu Total time 70 minutes
[2017-10-29] MEDS: HEPARIN SOD (PORCINE) 5,000 UNIT/ML 1 ML SYRINGE SUBCUT SCH ×2 (14:51→21:43)
[2017-10-29] MEDS ORDERED: CARVEDILOL 3.125 MG TABLET PO ONE (14:57)
[2017-10-29] MEDS ORDERED: GLUCAGON,HUMAN RECOMB 1 MG INJ IV ONE (15:00)
[2017-10-29] MEDS: GLUCAGON,HUMAN RECOMB 1 MG INJ IV PRN ×2 (17:04→21:43)
--- NOTE | 2017-10-29 19:27 | EKG REPORT ---
SEVERITY:- ABNORMAL ECG - Sinus bradycardia Atrial premature complexes Prolonged SD interval Nonspecific intraventricular conduction delay Nonspecific T abnormalities, lateral leads : Confirmed by: Karina Jones 29-Oct-2017 19:25:53
[2017-10-29 20:21] LABS: APPEARANCE,URINE CLEAR; BILIRUBIN,URINE NEGATIVE (NEGATIVE); COLOR,URINE YELLOW; GLUCOSE, URINE NEGATIVE (NEGATIVE); KETONES,URINE NEGATIVE (NEGATIVE); LEUKOCYTE ESTERASE,URINE SMALL (NEGATIVE); NITRITE,URINE NEGATIVE (NEGATIVE); PROTEIN,URINE NEGATIVE (NEGATIVE); UROBILINOGEN,URINE NEGATIVE mg/dL (<2.0)
[2017-10-29] MEDS: IPRATROPIUM/ALBUTEROL 0.5-2.5 MG/3 ML AMPUL NEB PRN (20:25)
[2017-10-30] MEDS: NORMAL SALINE 1000 ML 1,000 ML IV PRN ×3 (05:36→16:58)
[2017-10-30] MEDS: HEPARIN SOD (PORCINE) 5,000 UNIT/ML 1 ML SYRINGE SUBCUT SCH ×2 (05:36→13:30)
[2017-10-30 06:13] LABS: ABSOLUTE BASOPHILS # (AUTO) 0.1 10^3/uL (0.0-0.2); ABSOLUTE EOSINOPHILS # (AUTO) 0.3 10^3/uL (0.0-0.6); ABSOLUTE LYMPHOCYTES (AUTO) 2.1 10^3/uL (0.5-4.7); ABSOLUTE MONOCYTES (AUTO) 0.6 10^3/uL (0.1-1.4); ABSOLUTE NEUT (AUTO) 5.1 10^3/uL (1.7-8.2); BASOPHILS % (AUTO) 1.5 % (0-2); EOSINOPHILS % (AUTO) 3.9 % (0-6); HEMATOCRIT 34.1 % (37.9-51.0); HEMOGLOBIN 11.5 g/dL (13.5-17.0); LYMPHOCYTES % (AUTO) 25.3 % (13-45); MEAN CORPUSCULAR HEMOGLOBIN 26.6 pg (27.0-33.4); MEAN CORPUSCULAR HGB CONC 33.8 g/dL (32.0-36.0); MEAN CORPUSCULAR VOLUME 79 fl (80-97); MONOCYTES % (AUTO) 6.9 % (3-13); PLATELET COUNT 197 10^3/uL (150-450); RED BLOOD COUNT 4.33 10^6/uL (4.35-5.55); RED CELL DISTRIBUTION WIDTH 14.1 % (11.5-14.0); SEGMENTED NEUTROPHILS % (AUTO) 62.4 % (42-78); TOTAL CELLS COUNTED % (AUTO) 100 %; WHITE BLOOD COUNT 8.2 10^3/uL (4.0-10.5)
[2017-10-30 06:28] LABS: ANION GAP 14 (5-19); BLOOD UREA NITROGEN 76 mg/dL (7-20); CARBON DIOXIDE 27 mmol/L (22-30); CHLORIDE 106 mmol/L (98-107); GLUCOSE 43 mg/dL (75-110); POTASSIUM 3.6 mmol/L (3.6-5.0); SODIUM 146.7 mmol/L (137-145)
[2017-10-30] MEDS: IPRATROPIUM/ALBUTEROL 0.5-2.5 MG/3 ML AMPUL NEB PRN (08:35)
[2017-10-30] MEDS ORDERED: INSULIN LISPRO 100 UNIT/ML 3 ML VIAL SUBCUT PRN (10:13)
[2017-10-30] MEDS ORDERED: GABAPENTIN 400 MG CAPSULE PO SCH (14:00)
[2017-10-30] MEDS ORDERED: (PENDING PHARMACY ID) (Gabapentin [Neurontin] 400 MG) PO SCH (14:00)
[2017-10-30] MEDS ORDERED: TRAMADOL HCL 50 MG TABLET PO SCH ×2 (14:00→22:00)
--- NOTE | 2017-10-30 14:03 | PDOC PROGRESS REPORT ---
Subjective Progress Note for:: 11/04/17 Subjective:: Patient admitted with ARMANDO, dehydration, and hypotension. Says he is feeling better, in fact he never felt bad. Denies any chest pain or dizziness or SOB Reason For Visit: ACUTE RENAL FAILURE Physical Exam Vital Signs: Temp Pulse Resp BP Pulse Ox 98.0 F 75 18 138/54 H 100 10/30/17 11:27 10/30/17 11:27 10/30/17 11:27 10/30/17 11:27 10/30/17 11:27 Intake & Output 10/29/17 10/30/17 10/31/17 06:59 06:59 06:59 Intake Total 2197 356 Output Total 250 1700 Balance 1947 -1344 Weight 117.9 kg General appearance: PRESENT: no acute distress, obese, well-developed, well- nourished Head exam: PRESENT: atraumatic, normocephalic Eye exam: PRESENT: conjunctiva pink, PERRLA. ABSENT: scleral icterus Mouth exam: PRESENT: tongue midline Neck exam: ABSENT: carotid bruit, JVD, lymphadenopathy, thyromegaly Respiratory exam: PRESENT: clear to auscultation jey. ABSENT: rales, rhonchi, wheezes Cardiovascular exam: PRESENT: RRR. ABSENT: diastolic murmur, rubs, systolic murmur Pulses: PRESENT: normal dorsalis pedis pul Vascular exam: PRESENT: normal capillary refill GI/Abdominal exam: PRESENT: normal bowel sounds, soft. ABSENT: distended, guarding, mass, organolmegaly, rebound, tenderness Rectal exam: PRESENT: deferred Extremities exam: PRESENT: full ROM. ABSENT: calf tenderness, clubbing, pedal edema Neurological exam: PRESENT: alert, awake, oriented to person, oriented to place , oriented to time, oriented to situation, CN II-XII grossly intact. ABSENT: motor sensory deficit Psychiatric exam: PRESENT: appropriate affect, normal mood. ABSENT: homicidal ideation, suicidal ideation Skin exam: PRESENT: dry, intact, warm. ABSENT: cyanosis, rash Results Laboratory Results: 10/30/17 05:29 10/30/17 05:29 10/29/17 10/30/17 10/30/17 19:45 05:29 05:29 WBC 8.2 RBC 4.33 L Hgb 11.5 L Hct 34.1 L MCV 79 L MCH 26.6 L MCHC 33.8 RDW 14.1 H Plt Count 197 Seg Neutrophils % 62.4 Lymphocytes % 25.3 Monocytes % 6.9 Eosinophils % 3.9 Basophils % 1.5 Absolute Neutrophils 5.1 Absolute Lymphocytes 2.1 Absolute Monocytes 0.6 Absolute Eosinophils 0.3 Absolute Basophils 0.1 Sodium 146.7 H Potassium 3.6 Chloride 106 Carbon Dioxide 27 Anion Gap 14 BUN 76 H Creatinine 3.06 H Est GFR ( Amer) 26 L Est GFR (Non-Af Amer) 22 L Glucose 43 L Calcium 9.0 Urine Color YELLOW Urine Appearance CLEAR Urine pH 5.0 Ur Specific [place] 1.010 Urine Protein NEGATIVE Urine Glucose (UA) NEGATIVE Urine Ketones NEGATIVE Urine Blood NEGATIVE Urine Nitrite NEGATIVE Ur Leukocyte Esterase SMALL H Urine WBC (Auto) 4 Urine RBC (Auto) 1 10/29/17 17:45 Troponin I < 0.012 Impressions: Chest X-Ray 10/29/17 11:31 IMPRESSION: NO ACUTE RADIOGRAPHIC FINDING IN THE CHEST. Assessment & Plan - Diagnosis (1) Acute on chronic kidney disease, stage 4 Is this a current diagnosis for this admission?: Yes (2) Bradycardia Is this a current diagnosis for this admission?: Yes (3) Hypotension due to drugs Is this a current diagnosis for this admission?: Yes (4) Hypogammaglobulinaemia, unspecified Is this a current diagnosis for this admission?: Yes Plan: Chronic, underlying, Resume IVIG once stable (5) Polypharmacy Is this a current diagnosis for this admission?: Yes Plan: Would benefit from streamlining his meds - Time Time Spent with patient: 15-24 minutes Medications reviewed and adjusted accordingly: Yes Anticipated discharge: Home Within: within 48 hours - Inpatient Certification Based on my medical assessment, after consideration of the patient's comorbidities, presenting symptoms, or acuity I expect that the services needed warrant INPATIENT care.: Yes Medical Necessity: Need For IV Fluids, Risk of Complication if Not Cared For in Hospital
[2017-10-30] MEDS ORDERED: AMITRIPTYLINE HCL 25 MG TABLET PO ONE (14:30)
[2017-10-30] MEDS: LORAZEPAM 1 MG TABLET PO SCH ×2 (14:40→17:52)
[2017-10-30] MEDS ORDERED: TRAMADOL HCL 50 MG TABLET PO ONE (15:00)
[2017-10-30] MEDS ORDERED: TOPIRAMATE 25 MG TABLET PO SCH (18:00)
[2017-10-30] MEDS ORDERED: GEMFIBROZIL 600 MG TABLET PO SCH (18:00)
[2017-10-30] MEDS ORDERED: DULOXETINE HCL 30 MG CAPSULE.DR PO SCH (18:00)
[2017-10-30 20:44] VITALS: BP 185/78
[2017-10-30] MEDS ORDERED: TRAZODONE HCL 50 MG TABLET PO SCH (22:00)
[2017-10-30] MEDS ORDERED: HYDROXYZINE PAMOATE 50 MG CAPSULE PO SCH (22:00)
[2017-10-30] MEDS ORDERED: NIACIN 500 MG TABLET.SA PO SCH (22:00)
[2017-10-30] MEDS ORDERED: HYDRALAZINE HCL 25 MG TABLET PO SCH (22:00)
[2017-10-30] MEDS ORDERED: HYDROXYZINE HCL PO SCH (22:00)
[2017-10-31] MEDS ORDERED: EPA PO SCH (10:00)
[2017-10-31] MEDS ORDERED: FISH OIL PO SCH (10:00)
[2017-10-31] MEDS ORDERED: MULTIVITAMIN TABLET PO SCH (10:00)
[2017-10-31] MEDS ORDERED: OMEGA-3 ACID ETHYL ESTERS 1 GM CAPSULE PO SCH (10:00)
[2017-10-31] MEDS ORDERED: OMEGA PO SCH (10:00)
[2017-10-31] MEDS ORDERED: AMITRIPTYLINE HCL 25 MG TABLET PO SCH (10:00)
[2017-10-31] MEDS ORDERED: (PENDING PHARMACY ID) (Multivit-Mins/Iron/Folic/Lycop [Centrum Men's Tablet] 1 EACH) PO SCH (10:00)
[2017-10-31] MEDS ORDERED: DHA PO SCH (10:00)
[2017-10-31] MEDS ORDERED: FLECAINIDE ACETATE 100 MG TABLET PO SCH (10:00)
--- NOTE | 2017-10-31 16:52 | PDOC DISCHARGE SUMMARY ---
General - Admit/Disc Date/PCP Admission Date/Primary Care Provider: 10/29/17 13:31 BENIGNO MELO MD Discharge Date: 10/30/17 - Discharge Diagnosis (1) Acute on chronic kidney disease, stage 4 Is this a current diagnosis for this admission?: Yes (2) Bradycardia Is this a current diagnosis for this admission?: Yes (3) Hypotension due to drugs Is this a current diagnosis for this admission?: Yes (4) Hypogammaglobulinaemia, unspecified Is this a current diagnosis for this admission?: Yes (5) Polypharmacy Is this a current diagnosis for this admission?: Yes - Additional Information Resuscitation Status: Full Code Home Medications: Gemfibrozil [Lopid] 600 mg PO BID 10/10/14 Lorazepam 1 mg PO TID 10/10/14 Tramadol HCl 100 mg PO TID 10/10/14 Trazodone HCl [Desyrel 50 mg Tablet] 3 tab PO QHS 10/10/14 Zolpidem Tartrate 10 mg PO QHS PRN 10/10/14 Potassium Chloride 20 meq PO ASDIR PRN 02/19/15 Testosterone Cypionate [Depo-Testosterone] 1 ml IM ASDIR PRN 02/19/15 Bumetanide [Bumex 2 mg Tablet] 1 tab PO Q2D 09/12/16 Duloxetine HCl [Cymbalta] 60 mg PO BID 09/12/16 Flecainide Acetate [Tambocor 100 Mg Tablet] 100 mg PO DAILY 09/12/16 [place]-3/Dha/Epa/Fish Oil [[place] 3 500 Softgel] 1 cap PO DAILY 09/12/16 Verapamil HCl [Verapamil ER] 240 mg PO DAILY 09/12/16 Clonidine HCl [Clonidine HCl ER] 2 tab PO QHS 10/07/16 Esomeprazole Magnesium [Nexium] 40 mg PO BID 10/29/17 Hydralazine HCl [Apresoline 25 mg Tablet] 25 mg PO BID 10/29/17 Insulin Regular, Human [Humulin R (Pyxis) Insulin 100 Unit/ml 3Ml] 0 unit SUBCUT .SLD SCALE 10/29/17 Losartan Potassium [Cozaar 50 mg Tablet] 50 mg PO DAILY 10/29/17 Metolazone [Zaroxolyn 2.5 Mg Tablet] 2.5 mg PO Q2D 10/29/17 Multivit-Mins/Iron/Folic/Lycop [Centrum Men's Tablet] 1 each PO DAILY 10/29/17 NPH, Human Insulin Isophane [Novolin N (NPH) Insulin 100 unit/mL] 40 units SQ BID 10/29/17 Niacin [Niacin ER] 500 mg PO QHS 10/29/17 Pantoprazole Sodium [Protonix] 40 mg PO DAILY 10/29/17 Tamsulosin HCl [Flomax 0.4 mg Cap.sr] 0.4 mg PO DAILY 10/29/17 Topiramate [Topamax] 50 mg PO BID 10/29/17 Amitriptyline HCl 25 mg PO DAILY 10/30/17 Gabapentin [Neurontin] 800 mg PO TID 10/30/17 Hydroxyzine Pamoate [Vistaril 25 mg Capsule] 50 mg PO QHS 10/30/17 History of Present Illness Patient complains of: Patient sent to the emergency room for evaluation of low blood pressure History of Present Illness: CHINA GIBSON is a 52 year old male with past medical history significant for stage III kidney disease with baseline creatinine of 1.79, diabetes mellitus, COPD on home oxygen hypogammaglobinemia on monthly IV myoglobulin, hypertension, chronic back pain both to emergency room from infusion center for evaluation of hypotension and bradycardia Patient came today to infusion center for his usual IV immunoglobulin, prior to initiation checked his vital sign patient heart rate was in the 40s and blood pressure was 80/50, due to that he was sent directly to emergency room. Symptom cruz patient has been having dizziness pale with change of position for the past 1 months and over the past few days symptom has gotten worse When he was seen in the emergency room today he was hypotensive and bradycardic in the 40s, he was given IV fluid bolus and blood pressure improved to 98/70 with map of 69. At the time of my evaluation patient denies chest pain nausea vomiting diarrhea In the evening he took clonidine 0.1 and hydralazine 50 mg and this morning verapamil 240 mg. EKG shows sinus bradycardia at a rate of 47, labs are significant for creatinine of 4.02 His cough fever chills orthopnea PND lower extremity swelling Hospital Course Hospital Course: Patient was started on intravenous fluids to the acute kidney injury. Is were also held and adjusted. Patient however was unhappy that he was not getting his medications as prescribed by his outpatient physician so he decided to sign out AGAINST MEDICAL ADVICE. She left before his treatment was completed. Physical Exam Vital Signs: Temp Pulse Resp BP Pulse Ox 98.2 F 85 18 185/78 H 100 10/30/17 20:00 10/30/17 20:00 10/30/17 20:00 10/30/17 20:00 10/30/17 15:51 Intake & Output 10/30/17 10/31/17 11/01/17 06:59 06:59 06:59 Intake Total 2197 2210 Output Total 250 4000 Balance 1947 -1790 Weight 117.9 kg General appearance: PRESENT: no acute distress, obese, well-developed, well- nourished Head exam: PRESENT: atraumatic, normocephalic Eye exam: PRESENT: conjunctiva pink, EOMI, PERRLA. ABSENT: scleral icterus Ear exam: PRESENT: normal external ear exam Mouth exam: PRESENT: tongue midline Neck exam: ABSENT: carotid bruit, JVD, lymphadenopathy, thyromegaly Respiratory exam: PRESENT: clear to auscultation jey. ABSENT: rales, rhonchi, wheezes Cardiovascular exam: PRESENT: RRR. ABSENT: diastolic murmur, rubs, systolic murmur Pulses: PRESENT: normal dorsalis pedis pul Vascular exam: PRESENT: normal capillary refill GI/Abdominal exam: PRESENT: normal bowel sounds, soft. ABSENT: distended, guarding, mass, organolmegaly, rebound, tenderness Rectal exam: PRESENT: deferred Extremities exam: PRESENT: full ROM. ABSENT: calf tenderness, clubbing, pedal edema Neurological exam: PRESENT: alert, awake, oriented to person, oriented to place , oriented to time, oriented to situation, CN II-XII grossly intact. ABSENT: motor sensory deficit Psychiatric exam: PRESENT: appropriate affect, normal mood. ABSENT: homicidal ideation, suicidal ideation Skin exam: PRESENT: dry, intact, warm. ABSENT: cyanosis, rash Results Laboratory Results: 10/30/17 05:29 10/30/17 05:29 10/29/17 17:45 Troponin I < 0.012 Impressions: Chest X-Ray 10/29/17 11:31 IMPRESSION: NO ACUTE RADIOGRAPHIC FINDING IN THE CHEST. Qualifiers - * PATIENT BEING DISCHARGED WITH ANY OF THE FOLLOWING DIAGNOSIS: No Plan Time Spent: Less than 30 Minutes - Left AGAINST MEDICAL ADVICE
== END 2017-10-30 20:15 | disposition left against medical advice (07) | DRG 683 ==
LOC: ER 11:06 → EH 13:31 → 3S 17:20
PROVIDERS: ADMIT Internal Medicine; ATTEND Internal Medicine
DX: N17.9 Acute kidney failure, unspecified (principal); I13.0 Hypertensive heart and chronic kidney disease with heart failure and stage 1 through stage 4 chronic kidney disease, or unspecified chronic kidney disease; D80.1 Nonfamilial hypogammaglobulinemia; E87.3 Alkalosis; T46.1X5A Adverse effect of calcium-channel blockers, initial encounter; I95.2 Hypotension due to drugs; N18.4 Chronic kidney disease, stage 4 (severe); E11.22 Type 2 diabetes mellitus with diabetic chronic kidney disease; I50.9 Heart failure, unspecified; R00.1 Bradycardia, unspecified; I49.9 Cardiac arrhythmia, unspecified; G89.29 Other chronic pain; K21.9 Gastro-esophageal reflux disease without esophagitis; M54.9 Dorsalgia, unspecified; M19.90 Unspecified osteoarthritis, unspecified site; I48.91 Unspecified atrial fibrillation; F32.9 Major depressive disorder, single episode, unspecified; Z87.81 Personal history of (healed) traumatic fracture; Z90.49 Acquired absence of other specified parts of digestive tract; Z86.73 Personal history of transient ischemic attack (TIA), and cerebral infarction without residual deficits; Z88.8 Allergy status to other drugs, medicaments and biological substances; Z88.0 Allergy status to penicillin; Z88.2 Allergy status to sulfonamides; Z99.81 Dependence on supplemental oxygen; Z79.4 Long term (current) use of insulin; Z79.899 Other long term (current) drug therapy
CPT/HCPCS: 36415; 71045; 80048; 80053; 81001; 82550; 82553; 82962; 84484; 85025; 93005; 93010; 94640; 96360; 99291; J1610; J1644; J1815; J3490; J7030; J7620

== ENCOUNTER 2017-11-19 09:02 | Outpatient (CLI) | payer MEDICARE ==
[~2017-11-19 09:02] MED LIST changes: -DEXAMETHASONE SOD PHOS INJ 10 MG/1 ML VIAL IV PRN; -DEXTROSE 5%-WATER 250 ML IV PRN; +DEXTROSE 5%-WATER 500 ML IV PRN; -DIPHENHYDRAMINE HCL 50 MG/ML VIAL IV PRN
[2017-11-19 09:28] VITALS: BP 133/63
[2017-11-19] MEDS ORDERED: DEXTROSE 5%-WATER 250 ML IV PRN (09:29)
[2017-11-19 11:18] LABS: ALANINE AMINOTRANSFERASE 23 U/L (21-72); ALBUMIN 4.5 g/dL (3.5-5.0); ALKALINE PHOSPHATASE 83 U/L (38-126); ANION GAP 16 (5-19); ASPARTATE AMINO TRANSFERASE 18 U/L (17-59); BILIRUBIN,DIRECT 0.3 mg/dL (0.0-0.4); BILIRUBIN,TOTAL 0.3 mg/dL (0.2-1.3); BLOOD UREA NITROGEN 47 mg/dL (7-20); CALCIUM 9.5 mg/dL (8.4-10.2); CARBON DIOXIDE 27 mmol/L (22-30); CHLORIDE 91 mmol/L (98-107); GLUCOSE 121 mg/dL (75-110); POTASSIUM 3.6 mmol/L (3.6-5.0); TOTAL PROTEIN 7.1 g/dL (6.3-8.2)
[2017-11-19 11:25] LABS: HEMATOCRIT 39.9 % (37.9-51.0); HEMOGLOBIN 13.9 g/dL (13.5-17.0); MEAN CORPUSCULAR HEMOGLOBIN 26.8 pg (27.0-33.4); MEAN CORPUSCULAR HGB CONC 34.9 g/dL (32.0-36.0); MEAN CORPUSCULAR VOLUME 77 fl (80-97); PLATELET COUNT 208 10^3/uL (150-450); RED BLOOD COUNT 5.19 10^6/uL (4.35-5.55); RED CELL DISTRIBUTION WIDTH 14.3 % (11.5-14.0); WHITE BLOOD COUNT 8.8 10^3/uL (4.0-10.5)
[2017-11-19 11:27] LABS: ABSOLUTE LYMPHOCYTES# (MANUAL) 2.6 10^3/uL (0.5-4.7); ABSOLUTE MONOCYTES # (MANUAL) 0.7 10^3/uL (0.1-1.4); ABSOLUTE NEUTROPHILS# (MANUAL) 4.8 10^3/uL (1.7-8.2); BASOPHILS % (MANUAL) 2 % (0-2); EOSINOPHILS % (MANUAL) 6 % (0-6); LYMPHOCYTES % (MANUAL) 24 % (13-45); MONOCYTES % (MANUAL) 8 % (3-13); PLATELET COMMENT ADEQUATE; SEGMENTED NEUTROPHILS % (MAN) 55 % (42-78); TOTAL CELLS COUNTED 100
== END 2017-11-19 13:07 | disposition home or self-care (01) ==
LOC: II 09:02 → 5TH 09:05 → II 13:07
PROVIDERS: ATTEND Internal Medicine
PROC: 30233S1 Transfusion of Nonautologous Globulin into Peripheral Vein, Percutaneous Approach (ICD-10-PCS; principal; 2017-11-19)
DX: D80.1 Nonfamilial hypogammaglobulinemia (principal)
CPT/HCPCS: 36415; 85025; 80053; 96365; 96366; J1561 ×3; A9270; J3490

== ENCOUNTER 2017-12-17 08:38 | Outpatient (CLI) | payer MEDICARE, MEDICAID ==
[~2017-12-17 08:38] MED LIST changes: +ACETAMINOPHEN 325 MG TABLET PO PRN; +DEXTROSE 5%-WATER 250 ML IV PRN; -DEXTROSE 5%-WATER 500 ML IV PRN; +DIPHENHYDRAMINE HCL 50 MG/ML VIAL IV PRN
[2017-12-17 09:49] VITALS: BP 125/58
== END 2017-12-17 11:47 | disposition home or self-care (01) ==
LOC: II 08:38 → 5TH 08:41 → II 11:47
PROVIDERS: ATTEND Internal Medicine
PROC: 30233S1 Transfusion of Nonautologous Globulin into Peripheral Vein, Percutaneous Approach (ICD-10-PCS; principal; 2017-12-17)
PROC: 3E033GC Introduction of Other Therapeutic Substance into Peripheral Vein, Percutaneous Approach (ICD-10-PCS; 2017-12-17)
DX: D80.1 Nonfamilial hypogammaglobulinemia (principal)
CPT/HCPCS: 96367; 96375; J1561 ×3; A9270 ×2; J1200; 96365; 96366; J3490

== ENCOUNTER → 2017-12-21 | Outpatient (CLI) | payer MEDICARE, MEDICAID ==
[2017-12-21 12:17] LABS: APPEARANCE,URINE CLEAR; BILIRUBIN,URINE NEGATIVE (NEGATIVE); COLOR,URINE YELLOW; GLUCOSE, URINE NEGATIVE (NEGATIVE); KETONES,URINE NEGATIVE (NEGATIVE); LEUKOCYTE ESTERASE,URINE NEGATIVE (NEGATIVE); NITRITE,URINE NEGATIVE (NEGATIVE); PROTEIN,URINE NEGATIVE (NEGATIVE); URINE SPECIFIC GRAVITY 1.011; UROBILINOGEN,URINE NEGATIVE mg/dL (<2.0)
[2017-12-21 12:33] LABS: ANION GAP 15 (5-19); BLOOD UREA NITROGEN 47 mg/dL (7-20); CALCIUM 10.1 mg/dL (8.4-10.2); CARBON DIOXIDE 30 mmol/L (22-30); CHLORIDE 96 mmol/L (98-107); GLUCOSE 136 mg/dL (75-110); POTASSIUM 4.5 mmol/L (3.6-5.0)
[2017-12-22 13:39] LABS: CREATININE URINE 116.5 mg/dL (Not Estab.); MICROALBUMIN URINE 11.9 ug/mL (Not Estab.)
== END ==
LOC: OD 11:11
PROVIDERS: ATTEND Internal Medicine Nephrology
DX: N18.3 Chronic kidney disease, stage 3 (moderate) (principal); E55.9 Vitamin D deficiency, unspecified
CPT/HCPCS: 36415; 80048; 81001; 82043; 82306; 82570

== ENCOUNTER 2018-02-20 13:34 | Emergency (ER) | payer MEDICARE, MEDICAID ==
--- NOTE | 2018-02-20 14:09 | ER Document Report ---
ED Medical Screen (RME) - General Chief Complaint: Bloody Stools Stated Complaint: BLOOD IN STOOL Time Seen by Provider: 02/20/18 14:04 Mode of Arrival: Ambulatory Information source: Patient, Relative, [facility] Records Notes: 52-year-old male with COPD, CHF, CAD, atrial fibrillation, previous GI bleed presents with complaint of weakness, shortness of breath and 4 days of black tarry stools associated with bright red blood and blood clots. Patient had a similar episode one year ago. Patient denies any blood thinning medication I have greeted and performed a rapid initial assessment of this patient. A comprehensive ED assessment and evaluation of the patient, analysis of test results and completion of medical decision making process we will be contacted by additional ED providers. PHYSICAL EXAMINATION: GENERAL: Well-appearing, well-nourished and in no acute distress. HEAD: Atraumatic, normocephalic. EYES: Pupils equal round extraocular movements intact, conjunctiva are normal. ENT: Nares patent NECK: Normal range of motion LUNGS: On oxygen NEUROLOGICAL: Normal speech TRAVEL OUTSIDE OF THE [place] IN LAST 30 DAYS: No - HPI Onset: Other Quality of pain: No pain Similar symptoms previously: Yes Recently seen / treated by doctor: No - Related Data Smoking: Non-smoker Frequency of alcohol use: None Drug Abuse: None Allergies/Adverse Reactions: budesonide [From Pulmicort] Allergy (Verified 02/20/18 13:35) Penicillins Allergy (Verified 02/20/18 13:35) Anaphylaxis Sulfa (Sulfonamide Antibiotics) Allergy (Verified 02/20/18 13:35) itching Past Medical History - Social History Chew tobacco use (# tins/day): No - 1ppd Frequency of alcohol use: None Drug Abuse: None - Past Medical History Cardiac Medical History: Reports: Hx Atrial Fibrillation, Hx Congestive Heart Failure, Hx Coronary Artery Disease, Hx Heart Attack, Hx Hypercholesterolemia, Hx Hypertension Pulmonary Medical History: Reports: Hx Asthma, Hx Bronchitis, Hx COPD, Hx Pneumonia Denies: Hx Tuberculosis Neurological Medical History: Reports: Hx Cerebrovascular Accident, Hx Seizures - 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 Denies: Hx Peritoneal Dialysis GI Medical History: Reports: Hx Gastroesophageal Reflux Disease Musculoskeltal Medical History: Reports Hx Arthritis - KNEES, Reports Hx Musculoskeletal Deformity, Reports Hx Musculoskeletal Trauma Psychiatric Medical History: Reports: Hx Depression Traumatic Medical History: Reports: Hx Fractures - Reattachment of the second finger right hand Past Surgical History: Reports: Hx Cardiac Catheterization, Hx Cholecystectomy, Hx Orthopedic Surgery - Right knee 6 reattachment of second finger right hand, Other - Cardiac ablation - Immunizations Hx Diphtheria, Pertussis, Tetanus Vaccination: Yes History of Influenza Vaccine for 03/2017 - 08/2017 Season: Yes Physical Exam - Vital signs Vitals: Temp Pulse Resp BP Pulse Ox 98.2 F 72 24 H 126/55 H 92 02/20/18 13:45 02/20/18 13:45 02/20/18 13:45 02/20/18 13:45 02/20/18 13:45 Course - Vital Signs Vital signs: Temp Pulse Resp BP Pulse Ox 98.2 F 72 24 H 126/55 H 92 02/20/18 13:45 02/20/18 13:45 02/20/18 13:45 02/20/18 13:45 02/20/18 13:45 - Laboratory Result Diagrams: 02/20/18 14:20 02/20/18 14:20 Laboratory results interpreted by me: 02/20/18 02/20/18 02/20/18 14:20 14:20 14:20 RBC 3.99 L Hgb 10.8 L Hct 32.7 L RDW 16.0 H APTT 46.0 H Chloride 109 H Carbon Dioxide 21 L Creatinine 2.47 H Est GFR ( Amer) 33 L Est GFR (Non-Af Amer) 28 L Direct Bilirubin 0.5 H AST 15 L ALT 20 L Doctor's Discharge - Discharge Referrals: ARIANA COUCH MD [ACTIVE STAFF] - Follow up as needed
[2018-02-20 14:54] LABS: ABSOLUTE BASOPHILS # (AUTO) 0.1 10^3/uL (0.0-0.2); ABSOLUTE EOSINOPHILS # (AUTO) 0.3 10^3/uL (0.0-0.6); ABSOLUTE LYMPHOCYTES (AUTO) 1.6 10^3/uL (0.5-4.7); ABSOLUTE MONOCYTES (AUTO) 0.8 10^3/uL (0.1-1.4); BASOPHILS % (AUTO) 1.4 % (0-2); EOSINOPHILS % (AUTO) 3.3 % (0-6); HEMATOCRIT 32.7 % (37.9-51.0); HEMOGLOBIN 10.8 g/dL (13.5-17.0); LYMPHOCYTES % (AUTO) 21.3 % (13-45); MEAN CORPUSCULAR HEMOGLOBIN 27.2 pg (27.0-33.4); MEAN CORPUSCULAR HGB CONC 33.1 g/dL (32.0-36.0); MEAN CORPUSCULAR VOLUME 82 fl (80-97); MONOCYTES % (AUTO) 9.7 % (3-13); PLATELET COUNT 235 10^3/uL (150-450); RED BLOOD COUNT 3.99 10^6/uL (4.35-5.55); SEGMENTED NEUTROPHILS % (AUTO) 64.3 % (42-78); TOTAL CELLS COUNTED % (AUTO) 100 %; WHITE BLOOD COUNT 7.7 10^3/uL (4.0-10.5)
[2018-02-20 15:02] LABS: INTERNATIONAL RATION (INR) 1.13; PROTHROMBIN TIME 15.1 SEC (11.4-15.4)
[2018-02-20 15:12] LABS: ALANINE AMINOTRANSFERASE 20 U/L (21-72); ALBUMIN 3.9 g/dL (3.5-5.0); ALKALINE PHOSPHATASE 90 U/L (38-126); ANION GAP 12 (5-19); ASPARTATE AMINO TRANSFERASE 15 U/L (17-59); BILIRUBIN,DIRECT 0.5 mg/dL (0.0-0.4); BILIRUBIN,TOTAL 0.6 mg/dL (0.2-1.3); BLOOD UREA NITROGEN 20 mg/dL (7-20); CALCIUM 9.3 mg/dL (8.4-10.2); CARBON DIOXIDE 21 mmol/L (22-30); CHLORIDE 109 mmol/L (98-107); GLUCOSE 94 mg/dL (75-110); POTASSIUM 4.5 mmol/L (3.6-5.0); SODIUM 141.6 mmol/L (137-145); TOTAL PROTEIN 6.9 g/dL (6.3-8.2)
[2018-02-20] MEDS ORDERED: LORAZEPAM 1 MG TABLET PO ONE (17:08)
[2018-02-20] MEDS ORDERED: GABAPENTIN 100 MG CAPSULE PO ONE (17:08)
[2018-02-20] MEDS ORDERED: TRAMADOL HCL 50 MG TABLET PO ONE (17:08)
[2018-02-20] MEDS ORDERED: AMITRIPTYLINE HCL 25 MG TABLET PO ONE (17:09)
[2018-02-20] MEDS ORDERED: DULOXETINE HCL 30 MG CAPSULE.DR PO ONE (17:09)
[2018-02-20] MEDS ORDERED: GABAPENTIN 400 MG CAPSULE ONE (17:42)
[2018-02-20] MEDS ORDERED: AMITRIPTYLINE HCL 25 MG TABLET ONE (17:45)
[2018-02-20] MEDS ORDERED: IPRATROPIUM/ALBUTEROL 0.5-2.5 MG/3 ML AMPUL NEB ONE (17:48)
--- NOTE | 2018-02-20 18:42 | RADIOLOGY REPORT (SQ) ---
EXAM DESCRIPTION: CT HEAD WITHOUT COMPLETED DATE/TIME: 02/20/2018 6:29 pm REASON FOR STUDY: poor memory COMPARISON: 02/19/2015 TECHNIQUE: Axial images acquired through the brain without intravenous contrast. Images reviewed wi th bone, brain and subdural windows. Additional sagittal and coronal reconstructions were generated. Images stored on PACS. All CT scanners at this facility use dose modulation, iterative reconstruction, and/or weight based d osing when appropriate to reduce radiation dose to as low as reasonably achievable (ALARA). [facility]: Dose Right [facility]: CareDose [facility]: Dose Right [facility]: Teradose 4D [facility]: Smart Curiyo RADIATION DOSE: CT Rad equipment meets quality standard of care and radiation dose reduction techniq ues were employed. CTDIvol: 53.2 mGy. DLP: 1044 mGy-cm. mGy. LIMITATIONS: None. FINDINGS: VENTRICLES: Chronically dilated. CEREBRUM: No masses. No hemorrhage. No midline shift. No evidence for acute infarction. Normal gra y/white matter differentiation. No areas of low density in the white matter. CEREBELLUM: No masses. No hemorrhage. No alteration of density. No evidence for acute infarction. EXTRAAXIAL SPACES: No fluid collections. No masses. ORBITS AND GLOBE: No intra- or extraconal masses. Normal contour of globe without masses. CALVARIUM: No fracture. PARANASAL SINUSES: No fluid or mucosal thickening. SOFT TISSUES: No mass or hematoma. OTHER: No other significant finding. IMPRESSION: No significant change. No acute findings. EVIDENCE OF ACUTE STROKE: NO. COMMENT: Quality ID # [id number]: Final reports with documentation of one or more dose reduction techniques (e.g., Automated exposure control, adjustment of the mA and/or kV according to patient size, use of iterative reconstruction technique) TECHNICAL DOCUMENTATION: JOB ID: [id number] [employer]- All Rights Reserved Reading location - IP/workstation name: [email or web address]
--- NOTE | 2018-02-20 19:10 | RADIOLOGY REPORT (SQ) ---
EXAM DESCRIPTION: CHEST 2 VIEWS COMPLETED DATE/TIME: 02/20/2018 6:35 pm REASON FOR STUDY: sob COMPARISON: 08/05/2016 EXAM PARAMETERS: NUMBER OF VIEWS: two views TECHNIQUE: Digital Frontal and Lateral radiographic views of the chest acquired. RADIATION DOSE: NA LIMITATIONS: none FINDINGS: LUNGS AND PLEURA: No opacities, masses or pneumothorax. No pleural effusion. MEDIASTINUM AND HILAR STRUCTURES: No masses or contour abnormalities. HEART AND VASCULAR STRUCTURES: Heart normal size. No evidence for failure. BONES: No acute findings. HARDWARE: None in the chest. OTHER: No other significant finding. IMPRESSION: NO ACUTE RADIOGRAPHIC FINDING IN THE CHEST. TECHNICAL DOCUMENTATION: JOB ID: [id number] [employer]- All Rights Reserved Reading location - IP/workstation name: [email or web address]
--- NOTE | 2018-02-20 19:16 | ER Document Report ---
ED General - General Chief Complaint: Bloody Stools Stated Complaint: BLOOD IN STOOL Time Seen by Provider: 02/20/18 14:04 Mode of Arrival: Ambulatory Information source: Patient Notes: This is a 52-year-old man with a history of COPD (2 L O2), hypertension, chronic kidney disease, diabetes, encephalopathy, nonfamilial hypogammaglobulinemia, atrial fibrillation and GI bleeding. Patient is no longer on any anticoagulation. He presented to the ER today with concerns for shortness of breath, weakness, decreased memory and blood in his stool. Patient states she has had a blood in the stool for the ast few days. Patient is a 1 pack per day smoker His oncologist is Dr. Barber. His primary care doctor Dr. Melo, his GI doctor is Dr. Gr. TRAVEL OUTSIDE OF THE [place] IN LAST 30 DAYS: No - HPI Onset: Last week Onset/Duration: Gradual Quality of pain: No pain Severity: None Pain Level: Denies Associated symptoms: Shortness of breath, Weakness. denies: Chest pain, Fever Exacerbated by: Denies Relieved by: Denies Similar symptoms previously: Yes Recently seen / treated by doctor: Yes - Related Data Allergies/Adverse Reactions: budesonide [From Pulmicort] Allergy (Verified 02/20/18 13:35) Penicillins Allergy (Verified 02/20/18 13:35) Anaphylaxis Sulfa (Sulfonamide Antibiotics) Allergy (Verified 02/20/18 13:35) itching Past Medical History - General Information source: Patient, Relative, [facility] Records - Social History Smoking Status: Current Every Day Smoker Cigarette use (# per day): Yes - 1 pack per day Chew tobacco use (# tins/day): No - 1ppd Smoking Education Provided: Yes - 4 minutes Frequency of alcohol use: None Drug Abuse: None Lives with: Family Family History: None, Reviewed & Not Pertinent Patient has suicidal ideation: No Patient has homicidal ideation: No - Past Medical History Cardiac Medical History: Reports: Hx Atrial Fibrillation, Hx Congestive Heart Failure, Hx Coronary Artery Disease, Hx Heart Attack, Hx Hypercholesterolemia, Hx Hypertension Pulmonary Medical History: Reports: Hx Asthma, Hx Bronchitis, Hx COPD, Hx Pneumonia Denies: Hx Tuberculosis Neurological Medical History: Reports: Hx Cerebrovascular Accident, Hx Seizures - 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 Denies: Hx Peritoneal Dialysis GI Medical History: Reports: Hx Gastroesophageal Reflux Disease Musculoskeletal Medical History: Reports Hx Arthritis - KNEES, Reports Hx Musculoskeletal Deformity, Reports Hx Musculoskeletal Trauma Psychiatric Medical History: Reports: Hx Depression Traumatic Medical History: Reports: Hx Fractures - Reattachment of the second finger right hand Past Surgical History: Reports: Hx Cardiac Catheterization, Hx Cholecystectomy, Hx Orthopedic Surgery - Right knee 6 reattachment of second finger right hand, Other - Cardiac ablation - Immunizations Hx Diphtheria, Pertussis, Tetanus Vaccination: Yes Hx Pneumococcal Vaccination: 10/13/12 Review of Systems - Review of Systems Constitutional: Weakness. denies: Chills, Fever EENT: No symptoms reported Cardiovascular: denies: Chest pain, Palpitations, Heart racing Respiratory: Short of breath, Wheezing Gastrointestinal: See HPI Genitourinary: No symptoms reported Male Genitourinary: No symptoms reported Musculoskeletal: No symptoms reported Skin: No symptoms reported Hematologic/Lymphatic: No symptoms reported Neurological/Psychological: Weakness Physical Exam - Vital signs Vitals: Temp Pulse Resp BP Pulse Ox 98.2 F 72 24 H 126/55 H 92 02/20/18 13:45 02/20/18 13:45 02/20/18 13:45 02/20/18 13:45 02/20/18 13:45 Notes: Physical exam: GENERAL: 52-year-old man, alert and oriented 3, on 2 L nasal cannula. He is in no acute distress HEAD: Atraumatic, normocephalic. EYES: Pupils equal round and reactive to light, extraocular movements intact, sclera anicteric, conjunctiva are normal. ENT: TMs normal, nares patent, oropharynx clear without exudates. Moist mucous membranes. NECK: Normal range of motion, supple without obvious mass or JVD. LUNGS: Breath sounds clear to auscultation bilaterally and equal. He does have some scattered wheezing. HEART: Regular rate and rhythm without murmurs, rubs or gallops. ABDOMEN: Soft, normoactive bowel sounds. No tenderness to palpation. No guarding, no rebound. No masses appreciated. Rectal exam: brown stool, heme-negative EXTREMITIES: Normal range of motion, no pitting or edema. No clubbing or cyanosis. NEUROLOGICAL: Cranial nerves II through XII grossly intact. Normal speech, moving all extremities. PSYCH: Normal mood, normal affect. SKIN: Warm, Dry, normal turgor, no rashes or lesions noted. Course - Re-evaluation Re-evalutation: 02/20/18 19:30 Note: This is a patient I do now. I evaluated him last April and ended up transferring him to [facility] in the setting of acute GI bleeding. Today, he presents to the emergency room with concerns for possible GI bleeding, generalized weakness, shortness of breath. His tells me that he has been forgetting things as well. On exam, he is in no acute distress. He did have some wheezing and he was given a nebulizer treatment. Chest x-ray shows no significant change from previous. He is has no increased white count and he said no fever. I have had a long discussion regarding his cigarette smoking (he continues to smoke) and strongly advised him that now is the time to quit because his ALT lungs are only going to get worse. I also informed him that this can affect his memory. His neurologic exam was nonfocal. A CT of the head was done to rule out the possibility of a chronic subdural and it did not show anything like that. As far as the GI bleeding issue, he is no longer on anticoagulation (as he was last April). His H&H is stable and his stool is brown and is heme-negative. I did recommend he follow-up with his GI doctor this week. - Vital Signs Vital signs: Temp Pulse Resp BP Pulse Ox 98.2 F 72 24 H 126/55 H 92 02/20/18 13:45 02/20/18 13:45 02/20/18 13:45 02/20/18 13:45 02/20/18 13:45 - Laboratory Result Diagrams: 02/20/18 14:20 02/20/18 14:20 Laboratory results interpreted by me: 02/20/18 02/20/18 02/20/18 14:20 14:20 14:20 RBC 3.99 L Hgb 10.8 L Hct 32.7 L RDW 16.0 H APTT 46.0 H Chloride 109 H Carbon Dioxide 21 L Creatinine 2.47 H Est GFR ( Amer) 33 L Est GFR (Non-Af Amer) 28 L Direct Bilirubin 0.5 H AST 15 L ALT 20 L - Diagnostic Test Radiology reviewed: Image reviewed, Reports reviewed - CT of the head shows no acute intracranial process. Chest x-ray shows no significant change from previous. Discharge - Discharge Clinical Impression: COPD, Blood in stool, Weakness Condition: Stable Disposition: HOME, SELF-CARE Additional Instructions: As we discussed your blood counts were good today and there was no evidence of blood in your stool. So at this point in time, there is no evidence of active bleeding. I do want you to follow-up with Dr. Gr of GI: Call his office on Thursday and tell them you were in the emergency room because of some blood in the stool. Tell him that when you were in the emergency room, it had stopped and your blood counts were stable, but the ER doctor wanted you seen in evaluation. As far as your shortness of breath, weakness and even memory loss: It is very important that you stop smoking. You have COPD and the smoking is just making your lungs worse and can affect all these things. He will also increase your chances of cancer. I would like you to call your primary care doctor (Dr. Melo) on Thursday for follow-up appointment about techniques to assist you with stopping smoking. Return to the emergency room for any worsening weakness, shortness of breath or any concerns or getting worse. Referrals: BENIGNO MELO MD [Primary Care Provider] - Follow up in 3-5 days NADIA GR MD [ACTIVE STAFF] - 02/22/18
[2018-02-20 19:44] VITALS: BP 147/54
== END 2018-02-20 19:40 | disposition home or self-care (01) ==
LOC: ER 13:34
DX: J44.9 Chronic obstructive pulmonary disease, unspecified (principal); K92.1 Melena; R53.1 Weakness; I10 Essential (primary) hypertension; N18.9 Chronic kidney disease, unspecified; E11.9 Type 2 diabetes mellitus without complications; R06.02 Shortness of breath; R41.82 Altered mental status, unspecified; F17.210 Nicotine dependence, cigarettes, uncomplicated
CPT/HCPCS: 94640; 99285; 86900; 86901; 36415; 86850; 85025; 85610; 85730; 82272; 80053; 71046; 70450; A9270 ×6; J3490; J7620

== ENCOUNTER → 2018-02-23 | Outpatient (CLI) | payer MEDICARE, MEDICAID ==
[2018-02-23 11:01] LABS: ANION GAP 9 (5-19); BLOOD UREA NITROGEN 19 mg/dL (7-20); CALCIUM 9.5 mg/dL (8.4-10.2); CARBON DIOXIDE 26 mmol/L (22-30); CHLORIDE 109 mmol/L (98-107); GLUCOSE 115 mg/dL (75-110); POTASSIUM 4.3 mmol/L (3.6-5.0); SODIUM 144.1 mmol/L (137-145)
== END ==
LOC: OD 08:47
PROVIDERS: ATTEND Internal Medicine Nephrology
DX: I12.9 Hypertensive chronic kidney disease with stage 1 through stage 4 chronic kidney disease, or unspecified chronic kidney disease (principal); N18.3 Chronic kidney disease, stage 3 (moderate)
CPT/HCPCS: 36415; 80048

== ENCOUNTER 2018-03-10 08:02 | Outpatient (CLI) | payer MEDICARE, MEDICAID ==
[2018-03-10] MEDS ORDERED: FERUMOXYTOL (NON-ESRD) 510 MG/NS 100 ML IV PRN ×2 (08:20)
[2018-03-10] MEDS ORDERED: NORMAL SALINE 250 ML IV PRN (08:21)
[2018-03-10 09:37] VITALS: BP 133/63
== END 2018-03-10 09:50 | disposition home or self-care (01) ==
LOC: II 08:02 → 5TH 08:06 → II 09:50
PROVIDERS: ATTEND Internal Medicine Hematology & Oncology
PROC: 3E033GC Introduction of Other Therapeutic Substance into Peripheral Vein, Percutaneous Approach (ICD-10-PCS; principal; 2018-03-10)
DX: D50.0 Iron deficiency anemia secondary to blood loss (chronic) (principal); N18.3 Chronic kidney disease, stage 3 (moderate)
CPT/HCPCS: 96367; Q0138; 96365

== ENCOUNTER 2018-03-17 07:43 | Outpatient (CLI) | payer MEDICARE, MEDICAID ==
[~2018-03-17 07:43] MED LIST changes: -ACETAMINOPHEN 325 MG TABLET PO PRN; -DEXTROSE 5%-WATER 250 ML IV PRN; -DIPHENHYDRAMINE HCL 50 MG/ML VIAL IV PRN; +FERUMOXYTOL (NON-ESRD) 510 MG/NS 100 ML IV PRN; -IMMUNE GLOB GAM CAPRYLATE IV PRN; +NORMAL SALINE 250 ML IV PRN; -[UNRECOGNIZED DRUG - OTHER] IV PRN
[2018-03-17 08:15] VITALS: BP 125/53
== END 2018-03-17 09:08 | disposition home or self-care (01) ==
LOC: II 07:43 → 5TH 07:43 → II 09:08
PROVIDERS: ATTEND Internal Medicine Hematology & Oncology
PROC: 3E033GC Introduction of Other Therapeutic Substance into Peripheral Vein, Percutaneous Approach (ICD-10-PCS; principal; 2018-03-17)
DX: D50.0 Iron deficiency anemia secondary to blood loss (chronic) (principal); N18.3 Chronic kidney disease, stage 3 (moderate)
CPT/HCPCS: 96367; Q0138; 96365

== ENCOUNTER → 2018-06-21 | Outpatient (CLI) | payer MEDICARE, OTHER, MEDICAID ==
[2018-06-21 11:10] LABS: ABSOLUTE BASOPHILS # (AUTO) 0.2 10^3/uL (0.0-0.2); ABSOLUTE EOSINOPHILS # (AUTO) 0.4 10^3/uL (0.0-0.6); ABSOLUTE LYMPHOCYTES (AUTO) 1.9 10^3/uL (0.5-4.7); ABSOLUTE MONOCYTES (AUTO) 0.7 10^3/uL (0.1-1.4); ABSOLUTE NEUT (AUTO) 6.1 10^3/uL (1.7-8.2); EOSINOPHILS % (AUTO) 4.3 % (0-6); HEMATOCRIT 41.6 % (37.9-51.0); HEMOGLOBIN 14.2 g/dL (13.5-17.0); LYMPHOCYTES % (AUTO) 20.2 % (13-45); MEAN CORPUSCULAR HEMOGLOBIN 27.1 pg (27.0-33.4); MEAN CORPUSCULAR VOLUME 80 fl (80-97); MONOCYTES % (AUTO) 7.4 % (3-13); PLATELET COUNT 196 10^3/uL (150-450); RED BLOOD COUNT 5.23 10^6/uL (4.35-5.55); RED CELL DISTRIBUTION WIDTH 13.8 % (11.5-14.0); SEGMENTED NEUTROPHILS % (AUTO) 66.1 % (42-78); TOTAL CELLS COUNTED % (AUTO) 100 %; WHITE BLOOD COUNT 9.3 10^3/uL (4.0-10.5)
[2018-06-21 11:31] LABS: ALBUMIN 4.6 g/dL (3.5-5.0); ANION GAP 13 (5-19); BLOOD UREA NITROGEN 50 mg/dL (7-20); CALCIUM 10.2 mg/dL (8.4-10.2); CARBON DIOXIDE 21 mmol/L (22-30); CHLORIDE 111 mmol/L (98-107); GLUCOSE 144 mg/dL (75-110); PHOSPHORUS 3.2 mg/dL (2.5-4.5); POTASSIUM 5.2 mmol/L (3.6-5.0); SODIUM 144.5 mmol/L (137-145)
[2018-06-21 12:27] LABS: APPEARANCE,URINE CLEAR; BILIRUBIN,URINE NEGATIVE (NEGATIVE); COLOR,URINE YELLOW; GLUCOSE, URINE NEGATIVE (NEGATIVE); KETONES,URINE NEGATIVE (NEGATIVE); LEUKOCYTE ESTERASE,URINE NEGATIVE (NEGATIVE); NITRITE,URINE NEGATIVE (NEGATIVE); PROTEIN,URINE NEGATIVE (NEGATIVE); URINE SPECIFIC GRAVITY 1.019; UROBILINOGEN,URINE NEGATIVE mg/dL (<2.0)
[2018-06-22 14:40] LABS: CREATININE URINE 186.8 mg/dL (Not Estab.); MICROALBUMIN URINE 17.6 ug/mL (Not Estab.)
== END ==
LOC: OD 10:37
PROVIDERS: ATTEND Internal Medicine Nephrology
DX: I12.9 Hypertensive chronic kidney disease with stage 1 through stage 4 chronic kidney disease, or unspecified chronic kidney disease (principal); N18.3 Chronic kidney disease, stage 3 (moderate); E11.22 Type 2 diabetes mellitus with diabetic chronic kidney disease; I99.9 Unspecified disorder of circulatory system
CPT/HCPCS: 36415; 80048; 81001; 82040; 82043; 82306; 82570; 83970; 84100; 85025

== ENCOUNTER → 2018-07-30 | Outpatient (CLI) | payer MEDICAID, MEDICARE ==
[2018-07-30 12:24] LABS: ANION GAP 12 (5-19); BLOOD UREA NITROGEN 30 mg/dL (7-20); CALCIUM 9.8 mg/dL (8.4-10.2); CARBON DIOXIDE 24 mmol/L (22-30); CHLORIDE 107 mmol/L (98-107); GLUCOSE 191 mg/dL (75-110); POTASSIUM 4.3 mmol/L (3.6-5.0); SODIUM 142.8 mmol/L (137-145)
== END ==
LOC: OD 11:15
PROVIDERS: ATTEND Internal Medicine Nephrology
DX: E11.22 Type 2 diabetes mellitus with diabetic chronic kidney disease (principal); I12.9 Hypertensive chronic kidney disease with stage 1 through stage 4 chronic kidney disease, or unspecified chronic kidney disease; N18.3 Chronic kidney disease, stage 3 (moderate)
CPT/HCPCS: 36415; 80048

== ENCOUNTER 2018-09-22 08:35 | Outpatient (CLI) | payer MEDICARE ==
[~2018-09-22 08:35] MED LIST changes: +ACETAMINOPHEN 325 MG TABLET PO PRN; +CONTAINER EMPTY IV PRN; +DEXTROSE 5%-WATER 250 ML IV PRN; +DIPHENHYDRAMINE HCL 50 MG CAPSULE PO PRN; -FERUMOXYTOL (NON-ESRD) 510 MG/NS 100 ML IV PRN; +IMMUNE GLOB GAM CAPRYLATE IV PRN; -NORMAL SALINE 250 ML IV PRN
[2018-09-22 09:39] VITALS: BP 135/47
== END 2018-09-22 11:33 | disposition home or self-care (01) ==
LOC: II 08:35 → 5TH 08:59 → II 11:33
PROVIDERS: ATTEND Internal Medicine Hematology & Oncology
PROC: 3E033GC Introduction of Other Therapeutic Substance into Peripheral Vein, Percutaneous Approach (ICD-10-PCS; principal; 2018-09-22)
DX: D80.1 Nonfamilial hypogammaglobulinemia (principal)
CPT/HCPCS: 96365; 96366; J1561; A9270 ×3; J3490

== ENCOUNTER → 2018-12-01 | Outpatient (CLI) | payer MEDICARE ==
[2018-12-01 11:34] LABS: ANION GAP 11 (5-19); BLOOD UREA NITROGEN 17 mg/dL (7-20); CALCIUM 9.8 mg/dL (8.4-10.2); CARBON DIOXIDE 22 mmol/L (22-30); CHLORIDE 110 mmol/L (98-107); GLUCOSE 153 mg/dL (75-110); POTASSIUM 4.5 mmol/L (3.6-5.0)
== END ==
LOC: OD 10:25
PROVIDERS: ATTEND Internal Medicine Nephrology
DX: I12.9 Hypertensive chronic kidney disease with stage 1 through stage 4 chronic kidney disease, or unspecified chronic kidney disease (principal); N18.3 Chronic kidney disease, stage 3 (moderate); E11.22 Type 2 diabetes mellitus with diabetic chronic kidney disease
CPT/HCPCS: 36415; 80048

== ENCOUNTER 2018-12-27 15:43 | Emergency (ER) | payer MEDICARE ==
[2018-12-27] MEDS ORDERED: ATROPINE SULFATE INJ 1 MG/1 ML VIAL IV ONE (16:10)
[2018-12-27] MEDS ORDERED: NORMAL SALINE 1000 ML 1,000 ML IV ONE (16:12)
[2018-12-27 16:15] LABS: ABSOLUTE BASOPHILS # (AUTO) 0.3 10^3/uL (0.0-0.2); ABSOLUTE EOSINOPHILS # (AUTO) 0.4 10^3/uL (0.0-0.6); ABSOLUTE LYMPHOCYTES (AUTO) 2.4 10^3/uL (0.5-4.7); ABSOLUTE MONOCYTES (AUTO) 0.9 10^3/uL (0.1-1.4); ABSOLUTE NEUT (AUTO) 6.1 10^3/uL (1.7-8.2); BASOPHILS % (AUTO) 2.5 % (0-2); EOSINOPHILS % (AUTO) 3.9 % (0-6); HEMATOCRIT 34.5 % (37.9-51.0); HEMOGLOBIN 11.3 g/dL (13.5-17.0); LYMPHOCYTES % (AUTO) 23.9 % (13-45); MEAN CORPUSCULAR HGB CONC 32.7 g/dL (32.0-36.0); MEAN CORPUSCULAR VOLUME 76 fl (80-97); PLATELET COUNT 251 10^3/uL (150-450); RED BLOOD COUNT 4.52 10^6/uL (4.35-5.55); RED CELL DISTRIBUTION WIDTH 14.2 % (11.5-14.0); SEGMENTED NEUTROPHILS % (AUTO) 60.7 % (42-78); TOTAL CELLS COUNTED % (AUTO) 100 %; WHITE BLOOD COUNT 10.1 10^3/uL (4.0-10.5)
[2018-12-27 16:28] LABS: ALANINE AMINOTRANSFERASE 25 U/L (21-72); ALBUMIN 4.1 g/dL (3.5-5.0); ALKALINE PHOSPHATASE 97 U/L (38-126); ANION GAP 11 (5-19); ASPARTATE AMINO TRANSFERASE 22 U/L (17-59); BILIRUBIN,DIRECT 0.4 mg/dL (0.0-0.4); BILIRUBIN,TOTAL 0.4 mg/dL (0.2-1.3); BLOOD UREA NITROGEN 16 mg/dL (7-20); CALCIUM 9.7 mg/dL (8.4-10.2); CARBON DIOXIDE 23 mmol/L (22-30); CHLORIDE 105 mmol/L (98-107); CREATINE KINASE 252 U/L (55-170); GLUCOSE 111 mg/dL (75-110); SODIUM 139.3 mmol/L (137-145); TOTAL PROTEIN 6.4 g/dL (6.3-8.2)
--- NOTE | 2018-12-27 16:29 | ER Document Report ---
ED Cardiac - General Chief Complaint: Irregular Pulse Stated Complaint: POSSIBLE SYNCOPE Time Seen by Provider: 12/27/18 16:10 Primary Care Provider: ARIANA COUCH MD [Primary Care Provider] - Follow up as needed TRAVEL OUTSIDE OF THE [place] IN LAST 30 DAYS: No - HPI Notes: Patient is a 53-year-old male that presents to the emergency department for chief complaint of syncope. 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 He states he usually wears 4 L nasal cannula oxygen at all times. Patient was ambulating in the hallway off of his oxygen and states after walking for a minute he began to feel very lightheaded. Patient states he then had a complete syncopal episode and collapsed to the ground. He was assisted to the ground did not hit his head. Patient states he has had bradycardia and syncope in the past. 2 months ago he had discussed having a pacemaker placed with Dr. Owen but had not had a chance to follow- up on that. Currently he states he is feeling much better. He denies any associated chest pain, increased shortness of breath, recent illness, diaphores is, nausea and vomiting. Past Medical History: Diabetes, hypertension, hyperlipidemia, COPD Past Surgical History: Reviewed in chart Social History: Reviewed in chart Family History: Reviewed and noncontributory for presenting illness Allergies: Reviewed, see documented allergy list. REVIEW OF SYSTEMS: CONSTITUTIONAL : No fever No chills No diaphoresis No recent illness EENT: No vision changes No congestion No sore throat CARDIOVASCULAR: No chest pain Syncope No palpitations RESPIRATORY: No shortness of breath No cough No difficulty breathing GASTROINTESTINAL: No abdominal pain No nausea No vomiting No diarrhea GENITOURINARY: No dysuria No hematuria No difficulty urinating MUSCULOSKELETAL: No back pain No leg pain No arm pain SKIN: No rashes No lesions LYMPHATIC: No swollen, enlarged glands. NEUROLOGICAL: No lightheadedness No headache No weakness No paresthesias PSYCHIATRIC: No anxiety No depression PHYSICAL EXAMINATION: Vital signs reviewed, nursing noted reviewed. GENERAL: Well-appearing, obese and in no acute distress. HEAD: Atraumatic, normocephalic. EYES: Eyes appear normal, extraocular movements intact, sclera anicteric, conjunctiva are normal. ENT: nares patent, oropharynx clear without exudates. Moist mucous membranes. NECK: Normal range of motion, supple without lymphadenopathy LUNGS: Breath sounds clear to auscultation bilaterally and equal. No wheezes rales or rhonchi. HEART: Bradycardic rate and sinus rhythm without murmurs ABDOMEN: Soft, nontender, normoactive bowel sounds. No rebound, guarding, or rigidity. No masses appreciated. EXTREMITIES: Nontender, good range of motion, no pitting or edema. NEUROLOGICAL: No focal neurological deficits. Moves all extremities spontaneously Motor and sensory grossly intact on exam. PSYCH: Normal mood, normal affect. SKIN: Warm, Dry, normal turgor, no rashes or lesions noted on exposed skin - Related Data Allergies/Adverse Reactions: budesonide [From Pulmicort] Allergy (Verified 02/20/18 13:35) Penicillins Allergy (Verified 02/20/18 13:35) Anaphylaxis Sulfa (Sulfonamide Antibiotics) Allergy (Verified 02/20/18 13:35) itching Past Medical History - Social History Smoking Status: Unknown if Ever Smoked Family History: None, Reviewed & Not Pertinent - Past Medical History Cardiac Medical History: Reports: Hx Atrial Fibrillation, Hx Congestive Heart Failure, Hx Coronary Artery Disease, Hx Heart Attack, Hx Hypercholesterolemia, Hx Hypertension Pulmonary Medical History: Reports: Hx Asthma, Hx Bronchitis, Hx COPD, Hx Pneumonia Denies: Hx Tuberculosis Neurological Medical History: Reports: Hx Cerebrovascular Accident, Hx Seizures - 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 Denies: Hx Peritoneal Dialysis GI Medical History: Reports: Hx Gastroesophageal Reflux Disease Musculoskeletal Medical History: Reports Hx Arthritis - KNEES, Reports Hx Musculoskeletal Deformity, Reports Hx Musculoskeletal Trauma Psychiatric Medical History: Reports: Hx Depression Traumatic Medical History: Reports: Hx Fractures - Reattachment of the second finger right hand Past Surgical History: Reports: Hx Cardiac Catheterization, Hx Cholecystectomy, Hx Orthopedic Surgery - Right knee 6 reattachment of second finger right hand, Other - Cardiac ablation - Immunizations Hx Diphtheria, Pertussis, Tetanus Vaccination: Yes Hx Pneumococcal Vaccination: 10/13/12 Physical Exam - Vital signs Vitals: Resp Pulse Ox 17 98 12/27/18 15:51 12/27/18 15:51 Course - Re-evaluation Re-evalutation: 12/27/18 16:37 Vitals reviewed. Nursing notes reviewed. Patient placed on telemetry monitoring. Pacemaker pads were placed on him for precaution. He is currently mentating with a stable blood pressure and not requiring external pacing. He was given atropine for his bradycardia. Patient has a history of bradycardia and is likely requiring pacemaker placement in the setting of his new syncopal episode. Plan to transfer to [facility] where his handle bar assembler Dr. Owen is available for pacemaker. Laboratory 12/27/18 12/27/18 15:51 15:51 WBC 10.1 RBC 4.52 Hgb 11.3 L Hct 34.5 L MCV 76 L MCH 25.0 L MCHC 32.7 RDW 14.2 H Plt Count 251 Seg Neutrophils % 60.7 Lymphocytes % 23.9 Monocytes % 9.0 Eosinophils % 3.9 Basophils % 2.5 H Absolute Neutrophils 6.1 Absolute Lymphocytes 2.4 Absolute Monocytes 0.9 Absolute Eosinophils 0.4 Absolute Basophils 0.3 H Sodium 139.3 Potassium 5.0 Chloride 105 Carbon Dioxide 23 Anion Gap 11 BUN 16 Creatinine 2.11 H Est GFR ( Amer) 40 L Est GFR (Non-Af Amer) 33 L Glucose 111 H Calcium 9.7 Total Bilirubin 0.4 Direct Bilirubin 0.4 Neonat Total Bilirubin Not Reportable Neonat Direct Bilirubin Not Reportable Neonat Indirect Bili Not Reportable AST 22 ALT 25 Alkaline Phosphatase 97 Creatine Kinase 252 H Total Protein 6.4 Albumin 4.1 12/27/18 17:30 Patient did have improvement of his bradycardia with atropine. The highest heart rate was in the mid 40s. Currently his heart rate is 38. He has a blood pressure 135/59. Patient has not been hypotensive or required transcutaneous pacing in the emergency room. He is mentating appropriately. He is stable for transfer. His care was discussed with Dr. Ornelas at [facility] who has accepted transfer. - Vital Signs Vital signs: Temp Pulse Resp BP Pulse Ox 16 122/61 98 12/27/18 17:12 12/27/18 17:12 12/27/18 17:12 - Laboratory Result Diagrams: 12/27/18 15:51 12/27/18 15:51 Laboratory results interpreted by me: 12/27/18 12/27/18 15:51 15:51 Hgb 11.3 L Hct 34.5 L MCV 76 L MCH 25.0 L RDW 14.2 H Basophils % 2.5 H Absolute Basophils 0.3 H Creatinine 2.11 H Est GFR ( Amer) 40 L Est GFR (Non-Af Amer) 33 L Glucose 111 H Creatine Kinase 252 H - EKG Interpretation by Me Additional EKG results interpreted by me: 12/27/18 16:35 interpreted by myself: 1550: Sinus bradycardia, rate 35, first-degree AV block, PAC, no STEMI, normal axis Critical Care Note - Critical Care Note Total time excluding time spent on procedures (mins): 38 Comments: Critical care time 38 exclusive from separate billable procedures for a patient requiring complex medical decision making, and high potential for clinical deterioration. Time spent obtaining history from patient or surrogate, discussions with consultants, development of treatment plan with patient or surrogate, evaluation of patient's response to treatment, examination of patient, ordering and performing treatments and interventions, ordering and review of laboratory studies, re-evaluation of patient's condition, ordering and review of radiographic studies and review of old charts Discharge - Discharge Clinical Impression: Bradycardia Syncope Qualifiers: Syncope type: unspecified Qualified Code(s): R55 - Syncope and collapse Condition: Stable Disposition: [facility] Referrals: ARIANA COUCH MD [Primary Care Provider] - Follow up as needed
[2018-12-27 16:41] LABS: CREATINE KINASE MB 1.41 ng/mL (<4.55); TROPONIN I < 0.012 ng/mL
[2018-12-27 21:33] VITALS: BP 131/39
--- NOTE | 2018-12-28 19:09 | EKG REPORT ---
SEVERITY:- ABNORMAL ECG - SINUS BRADYCARDIA ATRIAL PREMATURE COMPLEX FIRST DEGREE AV BLOCK : Confirmed by: Francisco Lindsay MD 28-Dec-2018 19:08:57
== END 2018-12-27 21:37 | disposition short-term general hospital (02) ==
LOC: ER 15:43
DX: R00.1 Bradycardia, unspecified (principal); R55 Syncope and collapse; E11.9 Type 2 diabetes mellitus without complications; I10 Essential (primary) hypertension; E78.5 Hyperlipidemia, unspecified; J44.9 Chronic obstructive pulmonary disease, unspecified; Z88.2 Allergy status to sulfonamides; Z88.0 Allergy status to penicillin; Z99.81 Dependence on supplemental oxygen
CPT/HCPCS: 93005; 99291; 96361; 96374; 36415; 82553; 82550; 85025; 80053; 84484; 93010; J0461; J7030

== ENCOUNTER → 2019-04-04 | Outpatient (CLI) | payer MEDICARE ==
[2019-04-04 14:27] LABS: ABSOLUTE BASOPHILS # (AUTO) 0.1 10^3/uL (0.0-0.2); ABSOLUTE EOSINOPHILS # (AUTO) 0.3 10^3/uL (0.0-0.6); ABSOLUTE LYMPHOCYTES (AUTO) 1.9 10^3/uL (0.5-4.7); ABSOLUTE MONOCYTES (AUTO) 0.6 10^3/uL (0.1-1.4); ABSOLUTE NEUT (AUTO) 4.1 10^3/uL (1.7-8.2); BASOPHILS % (AUTO) 2.1 % (0-2); EOSINOPHILS % (AUTO) 4.4 % (0-6); HEMATOCRIT 38.5 % (37.9-51.0); HEMOGLOBIN 12.8 g/dL (13.5-17.0); LYMPHOCYTES % (AUTO) 26.7 % (13-45); MEAN CORPUSCULAR HEMOGLOBIN 24.4 pg (27.0-33.4); MEAN CORPUSCULAR HGB CONC 33.1 g/dL (32.0-36.0); MEAN CORPUSCULAR VOLUME 74 fl (80-97); MONOCYTES % (AUTO) 7.9 % (3-13); PLATELET COUNT 215 10^3/uL (150-450); RED BLOOD COUNT 5.22 10^6/uL (4.35-5.55); SEGMENTED NEUTROPHILS % (AUTO) 58.9 % (42-78); TOTAL CELLS COUNTED % (AUTO) 100 %
[2019-04-04 14:47] LABS: ALBUMIN 4.2 g/dL (3.5-5.0); ANION GAP 13 (5-19); BLOOD UREA NITROGEN 14 mg/dL (7-20); CALCIUM 9.5 mg/dL (8.4-10.2); CARBON DIOXIDE 24 mmol/L (22-30); CHLORIDE 103 mmol/L (98-107); GLUCOSE 288 mg/dL (75-110); PHOSPHORUS 3.6 mg/dL (2.5-4.5); POTASSIUM 3.7 mmol/L (3.6-5.0)
== END ==
LOC: OD 13:59
PROVIDERS: ATTEND Internal Medicine Nephrology
DX: E11.22 Type 2 diabetes mellitus with diabetic chronic kidney disease (principal); I12.9 Hypertensive chronic kidney disease with stage 1 through stage 4 chronic kidney disease, or unspecified chronic kidney disease; N18.3 Chronic kidney disease, stage 3 (moderate)
CPT/HCPCS: 36415; 80069; 82306; 83970; 85025

== ENCOUNTER → 2019-04-18 | Outpatient (CLI) | payer MEDICARE ==
--- NOTE | 2019-04-18 15:13 | RADIOLOGY REPORT (SQ) ---
EXAM DESCRIPTION: CHEST PA/LATERAL COMPLETED DATE/TIME: 04/18/2019 2:22 pm REASON FOR STUDY: CHEST PAIN ON BREATHING COMPARISON: 02/20/2018 EXAM PARAMETERS: NUMBER OF VIEWS: two views TECHNIQUE: Digital Frontal and Lateral radiographic views of the chest acquired. RADIATION DOSE: NA LIMITATIONS: none FINDINGS: LUNGS AND PLEURA: No opacities, masses or pneumothorax. No pleural effusion. MEDIASTINUM AND HILAR STRUCTURES: No masses or contour abnormalities. HEART AND VASCULAR STRUCTURES: Heart normal size. No evidence for failure. BONES: No acute findings. HARDWARE: Left dual lead pacemaker. OTHER: No other significant finding. IMPRESSION: No acute findings in the chest. TECHNICAL DOCUMENTATION: JOB ID: [id number] [employer]- All Rights Reserved Reading location - IP/workstation name: [email or web address]
== END ==
LOC: OD 13:57
PROVIDERS: ATTEND Family Medicine
DX: R07.1 Chest pain on breathing (principal)
CPT/HCPCS: 71046

== ENCOUNTER 2019-06-03 08:04 | Outpatient (CLI) | payer MEDICARE ==
[~2019-06-03 08:04] MED LIST changes: -ACETAMINOPHEN 325 MG TABLET PO PRN; -CONTAINER EMPTY IV PRN; -DEXTROSE 5%-WATER 250 ML IV PRN; -DIPHENHYDRAMINE HCL 50 MG CAPSULE PO PRN; +FERUMOXYTOL (NON-ESRD) 510 MG/NS 100 ML IV PRN; -IMMUNE GLOB GAM CAPRYLATE IV PRN; +NORMAL SALINE 250 ML IV PRN
[2019-06-03 09:13] VITALS: BP 123/56
== END 2019-06-03 09:18 | disposition home or self-care (01) ==
LOC: II 08:04 → 5TH 08:07 → II 09:18
PROVIDERS: ATTEND Internal Medicine Hematology & Oncology
DX: D50.9 Iron deficiency anemia, unspecified (principal); K90.9 Intestinal malabsorption, unspecified
CPT/HCPCS: 96365; Q0138; J7050

== ENCOUNTER 2019-06-10 07:52 | Outpatient (CLI) | payer MEDICARE ==
[2019-06-10 08:04] VITALS: BP 120/42
== END 2019-06-10 09:36 | disposition home or self-care (01) ==
LOC: II 07:52 → 5TH 07:55 → II 09:36
PROVIDERS: ATTEND Internal Medicine Hematology & Oncology
DX: D50.9 Iron deficiency anemia, unspecified (principal); K90.9 Intestinal malabsorption, unspecified
CPT/HCPCS: 96365; Q0138; J7050

== ENCOUNTER 2019-07-02 22:43 | Observation (INO) | payer MEDICARE ==
[2019-07-02 23:14] LABS: ABSOLUTE BASOPHILS # (AUTO) 0.1 10^3/uL (0.0-0.2); ABSOLUTE EOSINOPHILS # (AUTO) 0.1 10^3/uL (0.0-0.6); ABSOLUTE LYMPHOCYTES (AUTO) 1.3 10^3/uL (0.5-4.7); ABSOLUTE NEUT (AUTO) 6.9 10^3/uL (1.7-8.2); BASOPHILS % (AUTO) 0.9 % (0-2); EOSINOPHILS % (AUTO) 1.4 % (0-6); HEMATOCRIT 25.2 % (37.9-51.0); HEMOGLOBIN 8.4 g/dL (13.5-17.0); LYMPHOCYTES % (AUTO) 14.2 % (13-45); MEAN CORPUSCULAR HEMOGLOBIN 24.8 pg (27.0-33.4); MEAN CORPUSCULAR HGB CONC 33.3 g/dL (32.0-36.0); MEAN CORPUSCULAR VOLUME 74 fl (80-97); MONOCYTES % (AUTO) 10.5 % (3-13); PLATELET COUNT 253 10^3/uL (150-450); RED CELL DISTRIBUTION WIDTH 17.1 % (11.5-14.0); TOTAL CELLS COUNTED % (AUTO) 100 %; WHITE BLOOD COUNT 9.5 10^3/uL (4.0-10.5)
--- NOTE | 2019-07-02 23:30 | ER Document Report ---
ED Respiratory Problem - General Chief Complaint: Respiratory Distress Stated Complaint: DIFFICULTY BREATHING Time Seen by Provider: 07/02/19 23:18 Primary Care Provider: BENIGNO MELO MD [Primary Care Provider] - Follow up as needed Notes: Patient is a 53-year-old male that comes emergency department by EMS for chief complaint of difficulty breathing. Patient was found to have oxygen saturation in the low 90s with respiratory distress and almost inability to speak at all reportedly, patient also had obvious abnormal lung sounds, as result before I saw the patient patient was transitioned from their CPAP to BiPAP when he got here. Patient states that now he is on BiPAP and he can breathe, patient can a lso speak easily now. Patient states he has had a worsening difficulty breathing for the past 2 to 3 days, was found to have a low-grade fever tonight. He states he has multiple sick contacts at home as well. Patient was given a dose of nitroglycerin and started on nitroglycerin drip by EMS at 10 mcg/min. Patient does have a history of CHF, COPD and asthma, and he smokes. He is on 3L nc oxygen at all times. Patient also is a history of chronic kidney disease, anemia, type 2 diabetes. TRAVEL OUTSIDE OF THE [place] IN LAST 30 DAYS: No - Related Data Allergies/Adverse Reactions: budesonide [From Pulmicort] Allergy (Verified 02/20/18 13:35) Penicillins Allergy (Verified 02/20/18 13:35) Anaphylaxis Sulfa (Sulfonamide Antibiotics) Allergy (Verified 02/20/18 13:35) itching Past Medical History - General Information source: Patient - Social History Smoking Status: Former Smoker Frequency of alcohol use: None Drug Abuse: None Lives with: Family Family History: None, Reviewed & Not Pertinent Patient has suicidal ideation: No Patient has homicidal ideation: No - Past Medical History Cardiac Medical History: Reports: Hx Atrial Fibrillation, Hx Congestive Heart Failure, Hx Coronary Artery Disease, Hx Heart Attack, Hx Hypercholesterolemia, Hx Hypertension Pulmonary Medical History: Reports: Hx Asthma, Hx Bronchitis, Hx COPD, Hx Pneumonia Denies: Hx Tuberculosis Neurological Medical History: Reports: Hx Cerebrovascular Accident, Hx Seizures - 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 Denies: Hx Peritoneal Dialysis GI Medical History: Reports: Hx Gastroesophageal Reflux Disease Musculoskeletal Medical History: Reports Hx Arthritis - KNEES, Reports Hx Musculoskeletal Deformity, Reports Hx Musculoskeletal Trauma Psychiatric Medical History: Reports: Hx Depression Traumatic Medical History: Reports: Hx Fractures - Reattachment of the second finger right hand Past Surgical History: Reports: Hx Cardiac Catheterization, Hx Cholecystectomy, Hx Orthopedic Surgery - Right knee 6 reattachment of second finger right hand, Other - Cardiac ablation - Immunizations Hx Diphtheria, Pertussis, Tetanus Vaccination: Yes Hx Pneumococcal Vaccination: 10/13/12 Review of Systems - Review of Systems Constitutional: See HPI EENT: No symptoms reported Cardiovascular: See HPI Respiratory: See HPI Gastrointestinal: No symptoms reported Genitourinary: No symptoms reported Male Genitourinary: No symptoms reported Musculoskeletal: No symptoms reported Skin: No symptoms reported Hematologic/Lymphatic: No symptoms reported Neurological/Psychological: No symptoms reported Physical Exam - Vital signs Vitals: Resp Pulse Ox 30 H 100 07/02/19 22:44 07/02/19 22:44 - Notes Notes: GENERAL: Alert, interacts well. HEAD: Normocephalic, atraumatic. EYES: Pupils equal, round, and reactive to light. Extraocular movements intact. ENT: Oral mucosa moist, tongue midline. Oropharynx unremarkable. Airway patent. LUNGS: Tachypnea, expiratory wheezes and scattered rhonchi, mildly labored breathing. No rales noted. HEART: Regular rate and rhythm. No murmur ABDOMEN: Soft, non-tender. Non-distended. EXTREMITIES: Moves all 4 extremities spontaneously. No edema, normal radial and dorsalis pedis pulses bilaterally. No cyanosis. BACK: no cervical, thoracic, lumbar midline tenderness. No saddle anesthesia, normal distal neurovascular exam. Moves all extremities in full range of motion. NEUROLOGICAL: Alert and oriented x3. Normal speech. Cranial nerves II through XII grossly intact. PSYCH: Normal affect, normal mood. SKIN: Warm, dry, normal turgor. No rashes or lesions noted. Course - Re-evaluation Re-evalutation: On my evaluation patient had already been transferred from CPAP to BiPAP, he is currently on a nitro drip at 10 mcg. However patient has no rales, no lower extremity edema, and he is not hypertensive significantly. I stopped the nitro drip, he was continued on BiPAP, given duo nebs and steroids. On reevaluation patient states he feels improved. Patient has been started for coverage of suspected community-acquired pneumonia, given Rocephin and doxycycline to avoid azithromycin because of his prolonged QT interval. Chest x-ray unremarkable. CBC nonspecific, chemistry unremarkable, influenza negative, BNP is elevated but significantly less than the previous 2 times, troponin unremarkable, chemistry shows some metabolic acidosis but is nonspecific. Venous blood gas nonspecific without CO2 retention. On evaluation patient is doing better, we weaned him off the BiPAP and will trial. Patient reevaluated, wheezing more, given additional DuoNeb. Patient stating he feels better but he does not sound improved to me, he will be given magnesium. After magnesium patient does sound improved, he did ambulate but had a lot of dyspnea. He did not have hypoxia or tachycardia however. I discussed with Dr. Beard and he recommends admission to the hospital for COPD exacerbation, fever, suspected viral pneumonitis. I discussed this with patient he states agreement. 07/03/[address] Sun, however I missed him and then I missed his call back when I was in a room doing a procedure. Spoke with Allie Velazquez, nurse practitioner, patient excepted to the medical floor. - Vital Signs Vital signs: Temp Pulse Resp BP Pulse Ox 98.2 F 20 115/56 L 97 07/03/19 04:13 07/03/19 05:00 07/03/19 04:13 07/03/19 05:00 - Laboratory Result Diagrams: 07/02/19 22:48 07/02/19 22:48 Laboratory results interpreted by me: 07/02/19 07/02/19 07/02/19 22:48 22:48 22:48 RBC 3.40 L Hgb 8.4 L Hct 25.2 L MCV 74 L MCH 24.8 L RDW 17.1 H VBG HCO3 Chloride 111 H Carbon Dioxide 18 L BUN 28 H Creatinine 1.87 H Est GFR ( Amer) 46 L Est GFR (MDRD) Non-Af 38 L Lactic Acid AST 15 L NT-Pro-B Natriuret Pep 1040 H 07/02/19 07/03/19 22:48 03:17 RBC Hgb Hct MCV MCH RDW VBG HCO3 18.3 L Chloride Carbon Dioxide BUN Creatinine Est GFR ( Amer) Est GFR (MDRD) Non-Af Lactic Acid 0.6 L AST NT-Pro-B Natriuret Pep - EKG Interpretation by Me Additional EKG results interpreted by me: EKG shows sinus rhythm at a rate of 75, QT interval mildly prolonged at 496, first-degree AV block with MD interval 224. No T wave inversions or ST segment changes in consecutive leads Discharge - Discharge Clinical Impression: Wheezing, COPD exacerbation, Shortness of breath Fever Qualifiers: Fever type: unspecified Qualified Code(s): R50.9 - Fever, unspecified Condition: Stable Disposition: ADMITTED INPATIENT Admitting Provider: Allie Velazquez PARADI OPERATOR Unit Admitted: Medical Floor Referrals: BENIGNO MELO MD [Primary Care Provider] - Follow up as needed
[2019-07-02 23:34] LABS: VENOUS BLOOD BASE EXCESS -7.5 mmol/L; VENOUS BLOOD HCO3 18.3 mmol/L (20-32); VENOUS BLOOD PCO2 38.2 mmHg (35-63); VENOUS BLOOD PH 7.3 (7.30-7.42)
[2019-07-02 23:38] LABS: ALBUMIN 3.8 g/dL (3.5-5.0); ALKALINE PHOSPHATASE 92 U/L (38-126); ANION GAP 12 (5-19); ASPARTATE AMINO TRANSFERASE 15 U/L (17-59); BILIRUBIN,TOTAL 0.2 mg/dL (0.2-1.3); BLOOD UREA NITROGEN 28 mg/dL (7-20); CALCIUM 9.8 mg/dL (8.4-10.2); CARBON DIOXIDE 18 mmol/L (22-30); CHLORIDE 111 mmol/L (98-107); GLUCOSE 102 mg/dL (75-110); POTASSIUM 4.1 mmol/L (3.6-5.0); TOTAL PROTEIN 6.6 g/dL (6.3-8.2)
--- NOTE | 2019-07-02 23:38 | RADIOLOGY REPORT (SQ) ---
EXAM DESCRIPTION: XR CHEST 1 VIEW COMPLETED DATE/TME: 07/02/2019 22:54 CLINICAL HISTORY: 53 years, Male, shortness of breath COMPARISON: Prior study from 04/18/2019 NUMBER OF VIEWS: One TECHNIQUE: Single frontal view of the chest was obtained LIMITATIONS: None. FINDINGS: Left subclavian approach dual lead cardiac pacer is unchanged in position. Cardiac and mediastinal contours are stable. Lungs are clear. No pleural effusion or pneumothorax. IMPRESSION: No acute disease. copyright 2010 [employer]- All Rights Reserved
[2019-07-02 23:50] LABS: NT PRO BNP 1040 pg/mL (<125)
[2019-07-02 23:52] LABS: TROPONIN I < 0.012 ng/mL
[2019-07-02] MEDS ORDERED: METHYLPREDNISOLONE INJ 125 MG/2 ML SDV IV ONE (23:53)
[2019-07-02] MEDS ORDERED: IPRATROPIUM/ALBUTEROL 0.5-2.5 MG/3 ML AMPUL NEB ONE ×2 (23:53→23:55)
[2019-07-02] MEDS ORDERED: CEFTRIAXONE 1 GM/D5W RTU 1 GM/50 ML RTUPB IV ONE (23:55)
[2019-07-02] MEDS ORDERED: DOXYCYCLINE HYCLATE INJ 100 MG VIAL IV ONE (23:56)
[2019-07-03 01:33] LABS: A TYPE INFLUENZA AG NEGATIVE (NEGATIVE); B INFLUENZA AG NEGATIVE (NEGATIVE)
[2019-07-03] MEDS ORDERED: ACETAMINOPHEN 325 MG TABLET PO ONE (02:24)
[2019-07-03] MEDS ORDERED: IPRATROPIUM/ALBUTEROL 0.5-2.5 MG/3 ML AMPUL NEB ONE (02:28)
[2019-07-03] MEDS: MAGNESIUM SULFATE/D5W 1 GM/100 ML RTUPB IV SCH ×2 (03:14→03:32)
[2019-07-03] MEDS ORDERED: ACETAMINOPHEN 325 MG TABLET PO PRN (08:36)
[2019-07-03] MEDS ORDERED: ALBUTEROL SULFATE 0.083% NEB 2.5 MG/3 ML AMPUL NEB PRN (08:36)
[2019-07-03] MEDS ORDERED: MAG HYDROX/AL HYDROX/SIMETH SUSP 30 ML UDCUP PO PRN (08:41)
[2019-07-03] MEDS ORDERED: ONDANSETRON HCL INJ/PF 4 MG/2 ML SDV IV PRN (08:41)
[2019-07-03] MEDS: DOCUSATE SODIUM 100 MG CAPSULE PO SCH (11:40)
[2019-07-03] MEDS ORDERED: TRAMADOL HCL 50 MG TABLET PO PRN (13:30)
[2019-07-03] MEDS ORDERED: (PENDING PHARMACY ID) (Zolpidem Tartrate [Zolpidem Tartrate] 10 MG) PO PRN (13:30)
[2019-07-03] MEDS ORDERED: GLUCAGON,HUMAN RECOMB 1 MG INJ IM PRN (13:34)
[2019-07-03] MEDS ORDERED: DEXTROSE 40% GEL 15 GM TUBE PO PRN ×2 (13:34)
[2019-07-03] MEDS ORDERED: DEXTROSE 50%-WATER 25 GM/50 ML DISP.SYRIN IV PRN ×2 (13:34)
[2019-07-03] MEDS ORDERED: HYDRALAZINE HCL INJ/PF 20 MG/1 ML SDV IV PRN (13:51)
--- NOTE | 2019-07-03 13:55 | PDOC H&P ---
History of Present Illness Admission Date/PCP: 07/03/19 07:45 BENIGNO MELO MD Patient complains of: shortness of breath History of Present Illness: CHINA GIBSON is a 53 year old male with a past medical history significant for COPD, chronic respiratory failure who is home O2 dependent, CAD, hypertension, hyperlipidemia, Nikhil embolus, CKD, DM 2, obesity, anxiety and depression who presents to the emergency department today with a complaint of 3 weeks of upper respiratory symptoms that have significantly become worse over the prior 3 days. He reports fatigue, generalized weakness, dyspnea at rest, nonproductive cough, and wheezing unresponsive to home nebulizer treatments. Evaluation in the emergency department revealed Low-grade temperature of 100.5, tachypnea (RR 30), anemia (hemoglobin 8.4) baseline renal function, normal troponin, proBNP of 1000, normal lactic acid, negative influenza, chest x-ray negative for acute findings, and EKG showing sinus rhythm with first-degree AV block. He was provided IV magnesium, Solu-Medrol, nebulizer treatments, and placed on BiPAP. He is referred to the hospitalist service for admission and management of the above-stated complaints and findings. 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 Endocrine Medical History: Reports: Diabetes Mellitus Type 2, Obesity Renal/ Medical History: Reports: Chronic Kidney Disease Malignancy Medical History: Reports: None GI Medical History: Reports: Gastroesophageal Reflux Disease Musculoskeltal Medical History: Reports: Arthritis Psychiatric Medical History: Reports: Depression, General Anxiety Disorder, Tobacco Dependency Hematology: Reports: Anemia Past Surgical History Past Surgical History: Reports: Cardiac Catheterization, Cholecystectomy, Orthopedic Surgery - Right knee 6 reattachment of second finger right hand, Pacemaker, Other - Cardiac ablation Social History Information Source: Patient Lives with: Family Smoking Status: Current Every Day Smoker Cigarettes Packs Per Day: 0.2 Frequency of Alcohol Use: None Hx Recreational Drug Use: No Drugs: None Hx Prescription Drug Abuse: No - Advance Directive Resuscitation Status: Full Code Family History Family History: None, Reviewed & Not Pertinent Parental Family History Reviewed: Yes Children Family History Reviewed: Yes Sibling(s) Family History Reviewed.: Yes Medication/Allergy Home Medications: Gemfibrozil [Lopid] 600 mg PO BID 10/10/14 Lorazepam 1 mg PO Q8 10/10/14 Tramadol HCl 100 mg PO Q8HP PRN 10/10/14 Trazodone HCl [Desyrel 50 mg Tablet] 150 mg PO QHS 10/10/14 Zolpidem Tartrate 10 mg PO HSP PRN 10/10/14 Testosterone Cypionate [Depo-Testosterone] 1 ml IM .QMONTHLY PRN 02/19/15 Duloxetine HCl [Cymbalta] 60 mg PO Q12 09/12/16 Flecainide Acetate [Tambocor 100 Mg Tablet] 100 mg PO Q12 09/12/16 [place]-3/Dha/Epa/Fish Oil [[place] 3 500 Softgel] 1 cap PO BID 09/12/16 Verapamil HCl [Verapamil ER] 240 mg PO DAILY 09/12/16 Esomeprazole Magnesium [Nexium] 40 mg PO BID 10/29/17 Hydralazine HCl [Apresoline 25 mg Tablet] 50 mg PO Q12 10/29/17 Losartan Potassium [Cozaar 50 mg Tablet] 100 mg PO DAILY 10/29/17 Tamsulosin HCl [Flomax 0.4 mg Cap.sr] 0.4 mg PO DAILY 10/29/17 Topiramate [Topamax] 50 mg PO Q12 10/29/17 Gabapentin [Neurontin] 800 mg PO QID 10/30/17 Hydroxyzine Pamoate [Vistaril 25 mg Capsule] 75 mg PO QHS 10/30/17 Atorvastatin Calcium [Lipitor 10 mg Tablet] 10 mg PO QHS 07/03/19 Cyanocobalamin (Vitamin B-12) [Vitamin B-12 1000 Mcg Tablet] 1,000 mcg PO DAILY 07/03/19 Insulin Aspart [Novolog Insulin 100 Unit/1 ml 10 ml] 0 unit SUBCUT .SLD SCALE 07/03/19 Insulin NPH Hum/Reg Insulin Hm [Humulin 70/30 Kwikpen] 60 unit SQ BID 07/03/19 Nitroglycerin [Nitrostat 0.4 mg (1/150 Gr) Tabs 25/Bottle] 1 tab SL Q5MP PRN 07/03/19 Allergies/Adverse Reactions: budesonide [From Pulmicort] Allergy (Verified 02/20/18 13:35) Penicillins Allergy (Verified 02/20/18 13:35) Anaphylaxis Sulfa (Sulfonamide Antibiotics) Allergy (Verified 02/20/18 13:35) itching Review of Systems Constitutional: PRESENT: fatigue. ABSENT: chills, fever(s), headache(s), weight gain, weight loss Eyes: ABSENT: visual disturbances Ears: ABSENT: hearing changes Cardiovascular: ABSENT: chest pain, dyspnea on exertion, edema, orthropnea, palpitations Respiratory: PRESENT: cough, dyspnea. ABSENT: hemoptysis Gastrointestinal: ABSENT: abdominal pain, constipation, diarrhea, hematemesis, hematochezia, nausea, vomiting Genitourinary: ABSENT: dysuria, hematuria Musculoskeletal: ABSENT: joint swelling Integumentary: ABSENT: rash, wounds Neurological: ABSENT: abnormal gait, abnormal speech, confusion, dizziness, focal weakness, syncope Psychiatric: ABSENT: anxiety, depression, homidical ideation, suicidal ideation Endocrine: ABSENT: cold intolerance, heat intolerance, polydipsia, polyuria Hematologic/Lymphatic: ABSENT: easy bleeding, easy bruising Physical Exam Vital Signs: Temp Pulse Resp BP Pulse Ox 97.4 F 66 24 H 112/40 L 98 07/03/19 10:48 07/03/19 10:48 07/03/19 10:48 07/03/19 10:48 07/03/19 10:48 Intake & Output 07/02/19 07/03/19 07/04/19 06:59 06:59 06:59 Intake Total 250 500 Balance 250 500 Weight 110.6 kg General appearance: PRESENT: cooperative, mild distress, obese, well-developed, well-nourished Head exam: PRESENT: atraumatic, normocephalic Eye exam: PRESENT: conjunctiva pink, EOMI, PERRLA. ABSENT: scleral icterus Ear exam: PRESENT: normal external ear exam Mouth exam: PRESENT: moist, tongue midline Neck exam: ABSENT: carotid bruit, JVD, lymphadenopathy, thyromegaly Respiratory exam: PRESENT: prolonged expiratory phas, rhonchi, symmetrical, tachypnea, wheezes, other - baseline oxygen requirement. ABSENT: rales Cardiovascular exam: PRESENT: RRR. ABSENT: diastolic murmur, rubs, systolic murmur Pulses: PRESENT: normal dorsalis pedis pul Vascular exam: PRESENT: normal capillary refill GI/Abdominal exam: PRESENT: normal bowel sounds, soft. ABSENT: distended, guarding, mass, organolmegaly, rebound, tenderness Rectal exam: PRESENT: deferred Extremities exam: PRESENT: full ROM. ABSENT: calf tenderness, clubbing, pedal edema Musculoskeletal exam: PRESENT: ambulatory Neurological exam: PRESENT: alert, awake, oriented to person, oriented to place, oriented to time, oriented to situation, CN II-XII grossly intact. ABSENT: motor sensory deficit Psychiatric exam: PRESENT: appropriate affect, normal mood. ABSENT: homicidal ideation, suicidal ideation Skin exam: PRESENT: dry, intact, warm. ABSENT: cyanosis, rash Results Laboratory Results: 07/02/19 22:48 07/02/19 22:48 07/02/19 07/02/19 07/02/19 22:48 22:48 22:48 WBC 9.5 RBC 3.40 L Hgb 8.4 L Hct 25.2 L MCV 74 L MCH 24.8 L MCHC 33.3 RDW 17.1 H Plt Count 253 Seg Neutrophils % 73.0 VBG pH VBG pCO2 VBG HCO3 VBG Base Excess Sodium 140.8 Potassium 4.1 Chloride 111 H Carbon Dioxide 18 L Anion Gap 12 BUN 28 H Creatinine 1.87 H Est GFR ( Amer) 46 L Glucose 102 Lactic Acid 1.2 Calcium 9.8 Total Bilirubin 0.2 AST 15 L Alkaline Phosphatase 92 Total Protein 6.6 Albumin 3.8 07/02/19 07/03/19 22:48 03:17 WBC RBC Hgb Hct MCV MCH MCHC RDW Plt Count Seg Neutrophils % VBG pH 7.30 VBG pCO2 38.2 VBG HCO3 18.3 L VBG Base Excess -7.5 Sodium Potassium Chloride Carbon Dioxide Anion Gap BUN Creatinine Est GFR ( Amer) Glucose Lactic Acid 0.6 L Calcium Total Bilirubin AST Alkaline Phosphatase Total Protein Albumin 07/02/19 22:48 Troponin I < 0.012 NT-Pro-B Natriuret Pep 1040 H Impressions: Chest X-Ray 07/02/19 22:54 IMPRESSION: No acute disease. copyright 2010 [employer]- All Rights Reserved Assessment and Plan - Diagnosis (1) Acute and chronic respiratory failure ([id number]) Qualifiers: Respiratory failure complication: unspecified whether with hypoxia or hypercapnia Qualified Code(s): J96.20 - Acute and chronic respiratory failure, unspecified whether with hypoxia or hypercapnia Is this a current diagnosis for this admission?: Yes Plan: Patient is admitted to the medical floor on continuous cardiac telemetry. He is provided supplemental oxygen and BiPAP as needed to maintain saturations greater than 89%. Scheduled and as needed nebulizer treatments. Twice daily Mucomyst nebs. Continue IV Solu-Medrol. Mucinex twice daily. Flonase. Incentive spirometer and flutter valve to bedside. (2) COPD exacerbation Is this a current diagnosis for this admission?: Yes Plan: Evaluation management as above. (3) Diabetes Qualifiers: Diabetes mellitus type: type 2 Diabetes mellitus terminal system operator insulin use: with terminal system operator use Chronic kidney disease stage: stage 4 (severe) Is this a current diagnosis for this admission?: Yes Plan: Patient is placed on a consistent carb/cardiac diet. He is initially provided Lantus 40 units twice daily (takes 60 units BID at home). Accu-Cheks before meals and at bedtime with Humalog for sliding scale coverage. Hypoglycemia protocol in place. (4) HTN (hypertension) Is this a current diagnosis for this admission?: Yes Plan: Continue home medication regiment. IV hydralazine as needed for blood pressure control. Cardiac diet. (5) CKD (chronic kidney disease) stage 3, GFR 30-59 ml/min Is this a current diagnosis for this admission?: Yes Plan: At baseline renal function. Optimize cardiac output. Avoid nephrotoxic medications as able. Monitor daily chemistries. (6) Tobacco dependence Is this a current diagnosis for this admission?: Yes Plan: Smoking cessation encouraged. Nicotine replacement therapy is offered and declined - Time Time Spent with patient: 35 or more minutes Smoking Cessation Education: 3 to 10 minutes Anticipated discharge: Home Within: within 24 hours
[2019-07-03] MEDS: LORAZEPAM 1 MG TABLET PO SCH ×2 (14:25→21:36)
[2019-07-03] MEDS: IPRATROPIUM/ALBUTEROL 0.5-2.5 MG/3 ML AMPUL NEB SCH ×2 (14:25→21:16)
[2019-07-03] MEDS: INSULIN LISPRO 100 UNIT/ML 3 ML VIAL SUBCUT SCH ×3 (14:25→21:33)
[2019-07-03] MEDS: HEPARIN SOD (PORCINE) 5,000 UNIT/ML 1 ML VIAL SUBCUT SCH ×2 (14:27→21:33)
[2019-07-03] MEDS: METHYLPREDNISOLONE INJ 40 MG/1 ML SDV IV SCH ×2 (14:29→21:34)
[2019-07-03] MEDS ORDERED: ZOLPIDEM TARTRATE 5 MG TABLET PO PRN (14:36)
[2019-07-03] MEDS ORDERED: INSULIN LISPRO 100 UNIT/ML 3 ML VIAL SUBCUT SCH (16:00)
[2019-07-03] MEDS: GABAPENTIN 400 MG CAPSULE PO SCH ×2 (17:06→23:24)
[2019-07-03] MEDS: HUM INSULIN NPH/REG INSULIN HM 100 UNIT/1 ML 3 ML SUBCUT SCH (17:06)
[2019-07-03] MEDS: PANTOPRAZOLE SODIUM 40 MG TABLET.DR PO SCH (17:06)
[2019-07-03] MEDS: GEMFIBROZIL 600 MG TABLET PO SCH (17:06)
[2019-07-03] MEDS ORDERED: INSULIN NPH HUM SQ SCH (18:00)
[2019-07-03] MEDS ORDERED: REG INSULIN SQ SCH (18:00)
[2019-07-03] MEDS ORDERED: EPA PO SCH (18:00)
[2019-07-03] MEDS ORDERED: FISH OIL PO SCH (18:00)
[2019-07-03] MEDS ORDERED: DHA PO SCH (18:00)
[2019-07-03] MEDS ORDERED: OMEGA PO SCH (18:00)
--- NOTE | 2019-07-03 18:33 | EKG REPORT ---
SEVERITY:- ABNORMAL ECG - SINUS RHYTHM FIRST DEGREE AV BLOCK BORDERLINE PROLONGED QT INTERVAL : Confirmed by: Carolina Lin MD 03-Jul-2019 18:32:20
[2019-07-03] MEDS: ACETYLCYSTEINE 20% SOLN 800 MG/4 ML VIAL.NEB NEB SCH (21:16)
[2019-07-03] MEDS: TRAZODONE HCL 50 MG TABLET PO SCH (21:34)
[2019-07-03] MEDS: HYDRALAZINE HCL 25 MG TABLET PO SCH (21:34)
[2019-07-03] MEDS: DULOXETINE HCL 30 MG CAPSULE.DR PO SCH (21:35)
[2019-07-03] MEDS: HYDROXYZINE PAMOATE 25 MG CAPSULE PO SCH (21:35)
[2019-07-03] MEDS: GUAIFENESIN 600 MG TABLET.SA PO SCH (21:35)
[2019-07-03] MEDS: FLUTICASONE NASAL SPRAY 50 MCG/SPRY 120 SPRAY/16 GM NASL SCH (21:36)
[2019-07-03] MEDS: ATORVASTATIN CALCIUM 10 MG TABLET PO SCH (21:36)
[2019-07-03] MEDS: TOPIRAMATE 25 MG TABLET PO SCH (21:39)
[2019-07-03] MEDS: FLECAINIDE ACETATE 100 MG TABLET PO SCH (21:39)
[2019-07-04] MEDS: IPRATROPIUM/ALBUTEROL 0.5-2.5 MG/3 ML AMPUL NEB SCH ×4 (02:42→20:21)
[2019-07-04] MEDS: LORAZEPAM 1 MG TABLET PO SCH ×3 (05:20→21:53)
[2019-07-04] MEDS: METHYLPREDNISOLONE INJ 40 MG/1 ML SDV IV SCH ×3 (05:20→21:54)
[2019-07-04] MEDS: GABAPENTIN 400 MG CAPSULE PO SCH ×3 (05:20→17:10)
[2019-07-04] MEDS: HEPARIN SOD (PORCINE) 5,000 UNIT/ML 1 ML VIAL SUBCUT SCH ×3 (05:21→21:53)
[2019-07-04 05:41] LABS: HEMATOCRIT 23.9 % (37.9-51.0); MEAN CORPUSCULAR HEMOGLOBIN 24.6 pg (27.0-33.4); MEAN CORPUSCULAR HGB CONC 32.9 g/dL (32.0-36.0); MEAN CORPUSCULAR VOLUME 75 fl (80-97); PLATELET COUNT 267 10^3/uL (150-450); RED BLOOD COUNT 3.19 10^6/uL (4.35-5.55); RED CELL DISTRIBUTION WIDTH 17.8 % (11.5-14.0); WHITE BLOOD COUNT 12.8 10^3/uL (4.0-10.5)
[2019-07-04 05:59] LABS: HEMOGLOBIN 7.9 g/dL (13.5-17.0)
[2019-07-04] MEDS ORDERED: PANTOPRAZOLE SODIUM 20 MG TABLET.DR PO SCH (06:00)
[2019-07-04 06:01] LABS: ANION GAP 15 (5-19); BLOOD UREA NITROGEN 37 mg/dL (7-20); CALCIUM 9.7 mg/dL (8.4-10.2); CARBON DIOXIDE 17 mmol/L (22-30); CHLORIDE 109 mmol/L (98-107); GLUCOSE 357 mg/dL (75-110); POTASSIUM 4.6 mmol/L (3.6-5.0)
[2019-07-04] MEDS: INSULIN LISPRO 100 UNIT/ML 3 ML VIAL SUBCUT SCH ×4 (07:12→21:52)
[2019-07-04] MEDS: ACETYLCYSTEINE 20% SOLN 800 MG/4 ML VIAL.NEB NEB SCH ×2 (07:49→20:20)
[2019-07-04 08:09] LABS: IRON(TIBC) 44.8 ug/dL (49-181)
[2019-07-04 08:11] LABS: ABSOLUTE RETICS # 0.129 10^6/uL (0.028-0.122); RETICULOCYTE COUNT (AUTO) 4.02 % (0.66-2.85)
[2019-07-04] MEDS: DOCUSATE SODIUM 100 MG CAPSULE PO SCH (09:12)
[2019-07-04] MEDS: HYDRALAZINE HCL 25 MG TABLET PO SCH (09:19)
[2019-07-04] MEDS: HUM INSULIN NPH/REG INSULIN HM 100 UNIT/1 ML 3 ML SUBCUT SCH (09:19)
[2019-07-04] MEDS: DULOXETINE HCL 30 MG CAPSULE.DR PO SCH ×2 (09:19→21:53)
[2019-07-04] MEDS: PANTOPRAZOLE SODIUM 40 MG TABLET.DR PO SCH (09:19)
[2019-07-04] MEDS: GEMFIBROZIL 600 MG TABLET PO SCH ×2 (09:19→17:10)
[2019-07-04] MEDS: GUAIFENESIN 600 MG TABLET.SA PO SCH ×2 (09:19→21:53)
[2019-07-04] MEDS: FLECAINIDE ACETATE 100 MG TABLET PO SCH ×2 (09:20→21:53)
[2019-07-04] MEDS: TOPIRAMATE 25 MG TABLET PO SCH ×2 (09:20→21:53)
[2019-07-04] MEDS: FLUTICASONE NASAL SPRAY 50 MCG/SPRY 120 SPRAY/16 GM NASL SCH ×2 (09:20→21:53)
[2019-07-04] MEDS ORDERED: TAMSULOSIN HCL 0.4 MG CAP.SR.24H PO SCH (10:00)
[2019-07-04] MEDS ORDERED: LOSARTAN POTASSIUM 50 MG TABLET PO SCH (10:00)
[2019-07-04] MEDS ORDERED: VERAPAMIL HCL 240 MG TABLET.SA PO SCH (10:00)
[2019-07-04 11:11] LABS: FOLATE 2.95 ng/mL (>2.76)
[2019-07-04] MEDS ORDERED: NORMAL SALINE 250 ML IV PRN ×2 (16:22)
[2019-07-04] MEDS ORDERED: PANTOPRAZOLE SODIUM 40 MG TABLET.DR PO SCH (17:00)
[2019-07-04] MEDS ORDERED: OMEGA-3 ACID ETHYL ESTERS 1 GM CAPSULE PO SCH (17:00)
--- NOTE | 2019-07-04 17:15 | PDOC DISCHARGE SUMMARY ---
Impression - Admit/DC Date/PCP Admission Date/Primary Care Provider: 07/03/19 07:45 BENIGNO MELO MD Discharge Date: 07/04/19 - Discharge Diagnosis (1) Acute and chronic respiratory failure ([id number]) Is this a current diagnosis for this admission?: Yes (2) COPD exacerbation Is this a current diagnosis for this admission?: Yes (3) Diabetes Is this a current diagnosis for this admission?: Yes (4) HTN (hypertension) Is this a current diagnosis for this admission?: Yes (5) CKD (chronic kidney disease) stage 3, GFR 30-59 ml/min Is this a current diagnosis for this admission?: Yes (6) Tobacco dependence Is this a current diagnosis for this admission?: Yes (7) Anemia Is this a current diagnosis for this admission?: Yes - Additional Information Resuscitation Status: Full Code Discharge Diet: Cardiac, Diabetic Discharge Activity: Activity As Tolerated, Balance Activity w/Rest, Slowly Increase Activity Referrals: RONNY MILLER MD [ACTIVE STAFF] - (Follow up this week for anemia.) BENIGNO MELO MD [Primary Care Provider] - (Follow up within 1 week.) Prescriptions: Prednisone [Deltasone 20 mg Tablet] 60 mg PO DAILY #15 tablet Ipratropium/Albuterol Sulfate [Duoneb 3 ml Ampul] 3 ml NEB RTQ6HP PRN #120 vial.neb PRN Reason: Fluticasone Propionate [Flonase Nasal [place] 50 Mcg/[place] 16 gm] 1 spray NASL Q12 #1 spray.pump Guaifenesin [Mucinex Sr 600 mg Tablet.sa] 600 mg PO Q12 #14 tablet.sa Acetylcysteine [Mucomist 20% Soln 800 mg/4 mL] 600 mg NEB RTBID #14 vial Home Medications: Gemfibrozil [Lopid] 600 mg PO BID 10/10/14 Lorazepam 1 mg PO Q8 10/10/14 Tramadol HCl 100 mg PO Q8HP PRN 10/10/14 Trazodone HCl [Desyrel 50 mg Tablet] 150 mg PO QHS 10/10/14 Zolpidem Tartrate 10 mg PO HSP PRN 10/10/14 Testosterone Cypionate [Depo-Testosterone] 1 ml IM .QMONTHLY PRN 02/19/15 Duloxetine HCl [Cymbalta] 60 mg PO Q12 09/12/16 Flecainide Acetate [Tambocor 100 mg Tablet] 100 mg PO Q12 09/12/16 [place]-3/Dha/Epa/Fish Oil [[place] 3 500 Softgel] 1 cap PO BID 09/12/16 Verapamil HCl [Verapamil ER] 240 mg PO DAILY 09/12/16 Esomeprazole Magnesium [Nexium] 40 mg PO BID 10/29/17 Hydralazine HCl [Apresoline 25 mg Tablet] 50 mg PO Q12 10/29/17 Losartan Potassium [Cozaar 50 mg Tablet] 100 mg PO DAILY 10/29/17 Tamsulosin HCl [Flomax 0.4 mg Cap.sr] 0.4 mg PO DAILY 10/29/17 Topiramate [Topamax] 50 mg PO Q12 10/29/17 Gabapentin [Neurontin] 800 mg PO QID 10/30/17 Hydroxyzine Pamoate [Vistaril 25 mg Capsule] 75 mg PO QHS 10/30/17 Atorvastatin Calcium [Lipitor 10 mg Tablet] 10 mg PO QHS 07/03/19 Cyanocobalamin (Vitamin B-12) [Vitamin B-12 1000 mcg Tablet] 1,000 mcg PO DAILY 07/03/19 Insulin Aspart [Novolog Insulin (Aspart) 100 unit/mL] 0 unit SUBCUT .SLD SCALE 07/03/19 Insulin NPH Hum/Reg Insulin Hm [Humulin 70/30 Kwikpen] 60 unit SQ BID 07/03/19 Nitroglycerin [Nitrostat 0.4 mg (1/150 Gr) Tabs 25/Bottle] 1 tab SL Q5MP PRN 07/03/19 Acetaminophen [Tylenol 325 mg Tablet] 650 mg PO Q4HP PRN tablet 07/04/19 Acetylcysteine [[place] 20% Soln 800 mg/4 mL] 600 mg NEB RTBID #14 vial 07/04/19 Fluticasone Propionate [Flonase Nasal [place] 50 Mcg/[place] 16 gm] 1 spray NASL Q12 #1 spray.pump 07/04/19 Guaifenesin [Mucinex Sr 600 mg Tablet.sa] 600 mg PO Q12 #14 tablet.sa 07/04/19 Ipratropium/Albuterol Sulfate [Duoneb 3 ml Ampul] 3 ml NEB RTQ6HP PRN #120 vial.neb 07/04/19 Prednisone [Deltasone 20 mg Tablet] 60 mg PO DAILY #15 tablet 07/04/19 History of Present Illiness History of Present Illness: CHINA GIBSON is a 53 year old male with a past medical history significant for COPD, chronic respiratory failure who is home O2 dependent, CAD, hypertension, hyperlipidemia, Nikhil embolus, CKD, DM 2, obesity, anxiety and depression who presents to the emergency department today with a complaint of 3 weeks of upper respiratory symptoms that have significantly become worse over the prior 3 days. He reports fatigue, generalized weakness, dyspnea at rest, nonproductive cough, and wheezing unresponsive to home nebulizer treatments. Evaluation in the emergency department revealed Low-grade temperature of 100.5, tachypnea (RR 30), anemia (hemoglobin 8.4) baseline renal function, normal troponin, proBNP of 1000, normal lactic acid, negative influenza, chest x-ray negative for acute findings, and EKG showing sinus rhythm with first-degree AV block. He was provided IV magnesium, Solu-Medrol, nebulizer treatments, and placed on BiPAP. He is referred to the hospitalist service for admission and management of the above-stated complaints and findings. Hospital Course Hospital Course: The patient was admitted to the medical floor on continuous cardiac telemetry. He was supported with supplemental oxygen, BiPAP, scheduled and as needed nebulizer treatments, twice daily Mucomyst nebs, IV Solu-Medrol, Mucinex twice daily, Flonase, and aggressive pulmonary toilet. The patient's respiratory symptoms rapidly improved overnight and by the following day he was maintaining oxygen saturations on his baseline oxygen requirement and asymptomatic while ambulating. The patient's hemoglobin was 8.4 on admission; drifted down to 7.9. Appears his baseline is 12.8. Anemia panel shows iron deficiency anemia. Patient reports that he is followed by Dr. Miller and receives regular iron infusions and occasional blood transfusions for management of his anemia. Discussed with patient option for remaining in-house with hematology consultation versus administering 1 unit PRBC with discharge home and close follow-up as an outpatient. The patient elected to receive a unit of blood entrance and discharged home. The patient's other chronic medical conditions have remained stable. Patient is discharged home in stable condition. He is advised to follow-up with his primary care provider within 1 week. He is instructed to follow-up with Dr. Jimenez this week for further evaluation and management of his anemia. He should follow-up with his established medication nurse and associate property manager as scheduled. He is instructed to take his medications as prescribed. He is encouraged to discontinue smoking, eat a cardiac diet, weigh himself daily and report any weight gain of >2 pounds to his medication nurse. He is advised to return to the emergency department as needed for concerning symptoms. Physical Exam Vital Signs: Temp Pulse Resp BP Pulse Ox 97.9 F 72 18 158/60 H 95 07/04/19 08:00 07/04/19 13:43 07/04/19 13:43 07/04/19 12:00 07/04/19 13:43 Intake & Output 07/03/19 07/04/19 07/05/19 06:59 06:59 06:59 Intake Total 250 1222 442 Balance 250 1222 442 Weight 110.6 kg General appearance: PRESENT: no acute distress, cooperative, morbidly obese, well-developed, well-nourished Head exam: PRESENT: atraumatic, normocephalic Eye exam: PRESENT: conjunctiva pink, EOMI, PERRLA. ABSENT: scleral icterus Ear exam: PRESENT: normal external ear exam Mouth exam: PRESENT: moist, tongue midline Neck exam: ABSENT: carotid bruit, JVD, lymphadenopathy, thyromegaly Respiratory exam: PRESENT: clear to auscultation jey, symmetrical, unlabored, other - baseline oxygen requirement. ABSENT: rales, rhonchi, wheezes Cardiovascular exam: PRESENT: RRR, +S1, +S2. ABSENT: diastolic murmur, rubs, systolic murmur Pulses: PRESENT: normal dorsalis pedis pul Vascular exam: PRESENT: normal capillary refill GI/Abdominal exam: PRESENT: normal bowel sounds, soft. ABSENT: distended, guarding, mass, organolmegaly, rebound, tenderness Rectal exam: PRESENT: deferred Extremities exam: PRESENT: full ROM. ABSENT: calf tenderness, clubbing, pedal edema Musculoskeletal exam: PRESENT: ambulatory Neurological exam: PRESENT: alert, awake, oriented to person, oriented to place, oriented to time, oriented to situation, CN II-XII grossly intact. ABSENT: motor sensory deficit Psychiatric exam: PRESENT: appropriate affect, normal mood. ABSENT: homicidal ideation, suicidal ideation Skin exam: PRESENT: dry, intact, warm. ABSENT: cyanosis, rash Results Laboratory Results: WBC 12.8 10^3/uL (4.0-10.5) H 07/04/19 05:26 RBC 3.19 10^6/uL (4.35-5.55) L 07/04/19 05:26 Hgb 7.9 g/dL (13.5-17.0) L 07/04/19 05:26 Hct 23.9 % (37.9-51.0) L 07/04/19 05:26 MCV 75 fl (80-97) L 07/04/19 05:26 MCH 24.6 pg (27.0-33.4) L 07/04/19 05:26 MCHC 32.9 g/dL (32.0-36.0) 07/04/19 05:26 RDW 17.8 % (11.5-14.0) H 07/04/19 05:26 Plt Count 267 10^3/uL (150-450) 07/04/19 05:26 Lymph % (Auto) 14.2 % (13-45) 07/02/19 22:48 Coal % (Auto) 10.5 % (3-13) 07/02/19 22:48 Eos % (Auto) 1.4 % (0-6) 07/02/19 22:48 Baso % (Auto) 0.9 % (0-2) 07/02/19 22:48 Reticulocyte # 0.129 10^6/uL (0.028-0.122) H 07/04/19 05:26 Absolute Neuts (auto) 6.9 10^3/uL (1.7-8.2) 07/02/19 22:48 Absolute Lymphs (auto) 1.3 10^3/uL (0.5-4.7) 07/02/19 22:48 Absolute Monos (auto) 1.0 10^3/uL (0.1-1.4) 07/02/19 22:48 Absolute Eos (auto) 0.1 10^3/uL (0.0-0.6) 07/02/19 22:48 Absolute Basos (auto) 0.1 10^3/uL (0.0-0.2) 07/02/19 22:48 Seg Neutrophils % 73.0 % (42-78) 07/02/19 22:48 Retic Count (auto) 4.02 % (0.66-2.85) H 07/04/19 05:26 VBG pH 7.30 (7.30-7.42) 07/02/19 22:48 VBG pCO2 38.2 mmHg (35-63) 07/02/19 22:48 VBG HCO3 18.3 mmol/L (20-32) L 07/02/19 22:48 VBG Base Excess -7.5 mmol/L 07/02/19 22:48 Sodium 141.3 mmol/L (137-145) 07/04/19 05:26 Potassium 4.6 mmol/L (3.6-5.0) 07/04/19 05:26 Chloride 109 mmol/L (98-107) H 07/04/19 05:26 Carbon Dioxide 17 mmol/L (22-30) L 07/04/19 05:26 Anion Gap 15 (5-19) 07/04/19 05:26 BUN 37 mg/dL (7-20) H 07/04/19 05:26 Creatinine 1.78 mg/dL (0.52-1.25) H 07/04/19 05:26 Est GFR ( Amer) 48 (>60) L 07/04/19 05:26 Est GFR (MDRD) Non-Af 40 (>60) L 07/04/19 05:26 Glucose 357 mg/dL (75-110) H 07/04/19 05:26 POC Glucose 310 mg/dL (70-110) H 07/04/19 14:44 Lactic Acid 0.6 mmol/L (0.7-2.1) L 07/03/19 03:17 Calcium 9.7 mg/dL (8.4-10.2) 07/04/19 05:26 Iron 44.8 ug/dL (49-181) L 07/04/19 05:26 TIBC 244 ug/dL (250-450) L 07/04/19 05:26 % Saturation 18 % 07/04/19 05:26 Ferritin 337.00 ng/mL (17.9-464.0) 07/04/19 05:26 Total Bilirubin 0.2 mg/dL (0.2-1.3) 07/02/19 22:48 Direct Bilirubin 0.0 mg/dL (0.0-0.4) 07/02/19 22:48 Neonat Total Bilirubin Not Reportable 07/02/19 22:48 Neonat Direct Bilirubin Not Reportable 07/02/19 22:48 Neonat Indirect Bili Not Reportable 07/02/19 22:48 AST 15 U/L (17-59) L 07/02/19 22:48 ALT 10 U/L (<50) 07/02/19 22:48 Alkaline Phosphatase 92 U/L (38-126) 07/02/19 22:48 Troponin I < 0.012 ng/mL 07/02/19 22:48 NT-Pro-B Natriuret Pep 1040 pg/mL (<125) H 07/02/19 22:48 Total Protein 6.6 g/dL (6.3-8.2) 07/02/19 22:48 Albumin 3.8 g/dL (3.5-5.0) 07/02/19 22:48 Vitamin B12 727.0 pg/mL (239-931) 07/04/19 05:26 Folate 2.95 ng/mL (>2.76) 07/04/19 05:26 Influenza A (Rapid) NEGATIVE (NEGATIVE) 07/03/19 00:47 Influenza B (Rapid) NEGATIVE (NEGATIVE) 07/03/19 00:47 Crossmatch See Detail 07/04/19 16:40 07/02/19 22:48 Troponin I < 0.012 NT-Pro-B Natriuret Pep 1040 H Impressions: Chest X-Ray 07/02/19 22:54 IMPRESSION: No acute disease. copyright 2010 [employer]- All Rights Reserved Stroke Is this a Stroke Patient?: No Acute Heart Failure - Is this a Heart Failure Patient?: No
[2019-07-04] MEDS ORDERED: HUM INSULIN NPH/REG INSULIN HM 100 UNIT/1 ML 3 ML SUBCUT SCH (18:00)
[2019-07-04 21:30] LABS: APPEARANCE,URINE CLEAR; BILIRUBIN,URINE NEGATIVE (NEGATIVE); COLOR,URINE YELLOW; GLUCOSE, URINE >=500 mg/dL (NEGATIVE); KETONES,URINE NEGATIVE (NEGATIVE); LEUKOCYTE ESTERASE,URINE NEGATIVE (NEGATIVE); NITRITE,URINE NEGATIVE (NEGATIVE); PROTEIN,URINE NEGATIVE (NEGATIVE); URINE SPECIFIC GRAVITY 1.017; UROBILINOGEN,URINE NEGATIVE mg/dL (<2.0)
[2019-07-04] MEDS: ATORVASTATIN CALCIUM 10 MG TABLET PO SCH (21:53)
[2019-07-04] MEDS: TRAZODONE HCL 50 MG TABLET PO SCH (21:53)
[2019-07-04] MEDS: HYDROXYZINE PAMOATE 25 MG CAPSULE PO SCH (21:54)
[2019-07-04] MEDS ORDERED: HYDRALAZINE HCL 50 MG TABLET PO SCH (22:00)
[2019-07-04 22:30] VITALS: BP 113/44
== END 2019-07-04 23:15 | disposition left against medical advice (07) ==
LOC: ER 22:43 → INTOOBSV 07-03 07:45 → EH 07-03 07:45 → 4S 07-03 08:50
PROVIDERS: ADMIT Internal Medicine; ATTEND Internal Medicine
DX: J96.21 Acute and chronic respiratory failure with hypoxia (principal); J44.1 Chronic obstructive pulmonary disease with (acute) exacerbation; E11.22 Type 2 diabetes mellitus with diabetic chronic kidney disease; I13.0 Hypertensive heart and chronic kidney disease with heart failure and stage 1 through stage 4 chronic kidney disease, or unspecified chronic kidney disease; F17.200 Nicotine dependence, unspecified, uncomplicated; N18.3 Chronic kidney disease, stage 3 (moderate); I50.9 Heart failure, unspecified; D64.9 Anemia, unspecified; I25.10 Atherosclerotic heart disease of native coronary artery without angina pectoris; I44.0 Atrioventricular block, first degree; D50.9 Iron deficiency anemia, unspecified; E66.01 Morbid (severe) obesity due to excess calories; I25.2 Old myocardial infarction; F17.210 Nicotine dependence, cigarettes, uncomplicated; R50.9 Fever, unspecified; I45.81 Long QT syndrome; F32.9 Major depressive disorder, single episode, unspecified; F41.1 Generalized anxiety disorder; K21.9 Gastro-esophageal reflux disease without esophagitis; E78.5 Hyperlipidemia, unspecified; I48.91 Unspecified atrial fibrillation; Z79.4 Long term (current) use of insulin; Z79.899 Other long term (current) drug therapy; Z99.81 Dependence on supplemental oxygen; Z86.711 Personal history of pulmonary embolism; Z95.0 Presence of cardiac pacemaker; Z86.73 Personal history of transient ischemic attack (TIA), and cerebral infarction without residual deficits
CPT/HCPCS: 93005; 94640 ×4; 99285; 96375; 96365; 96367; 96368; 86900; 86901; 36415 ×3; 87040; 87070; 87205; 36430; 86850; 82962 ×2; 82607; 82728; 82746; 83540; 83550; 83605 ×2; 85025; 85027; 85045; 80048; 80053; 81001; 84484; 86920; 82803; 87804; 83880; 71045; 94799; 93010; 94660 ×3; 94667; 99406; G0378 ×3; P9016; A9270 ×37; J1644 ×2; J3490; J2920 ×2; J2930; J3475; J0696; J1815; J7620

== ENCOUNTER → 2019-07-25 | Outpatient (CLI) | payer MEDICARE ==
[2019-07-25 13:28] LABS: ABSOLUTE BASOPHILS # (AUTO) 0.1 10^3/uL (0.0-0.2); ABSOLUTE EOSINOPHILS # (AUTO) 0.1 10^3/uL (0.0-0.6); ABSOLUTE LYMPHOCYTES (AUTO) 1.5 10^3/uL (0.5-4.7); ABSOLUTE MONOCYTES (AUTO) 0.5 10^3/uL (0.1-1.4); ABSOLUTE NEUT (AUTO) 5.2 10^3/uL (1.7-8.2); BASOPHILS % (AUTO) 0.8 % (0-2); EOSINOPHILS % (AUTO) 1.7 % (0-6); HEMATOCRIT 31.7 % (37.9-51.0); HEMOGLOBIN 10.7 g/dL (13.5-17.0); LYMPHOCYTES % (AUTO) 20.2 % (13-45); MEAN CORPUSCULAR HEMOGLOBIN 27.1 pg (27.0-33.4); MEAN CORPUSCULAR HGB CONC 33.8 g/dL (32.0-36.0); MONOCYTES % (AUTO) 7.1 % (3-13); PLATELET COUNT 260 10^3/uL (150-450); RED BLOOD COUNT 3.95 10^6/uL (4.35-5.55); RED CELL DISTRIBUTION WIDTH 21.7 % (11.5-14.0); SEGMENTED NEUTROPHILS % (AUTO) 70.2 % (42-78); TOTAL CELLS COUNTED % (AUTO) 100 %; WHITE BLOOD COUNT 7.4 10^3/uL (4.0-10.5)
[2019-07-25 13:42] LABS: MEAN CORPUSCULAR VOLUME 80 fl (80-97)
[2019-07-25 13:47] LABS: ANION GAP 11 (5-19); BLOOD UREA NITROGEN 32 mg/dL (7-20); CALCIUM 9.4 mg/dL (8.4-10.2); CARBON DIOXIDE 27 mmol/L (22-30); CHLORIDE 105 mmol/L (98-107); GLUCOSE 193 mg/dL (75-110); IRON(TIBC) 89.6 ug/dL (49-181); POTASSIUM 5.2 mmol/L (3.6-5.0)
[2019-07-27 10:36] LABS: CREATININE URINE 65.3 mg/dL (Not Estab.)
[2019-07-27 10:37] LABS: MICROALBUMIN URINE <3.0 ug/mL (Not Estab.)
== END ==
LOC: OD 12:42
PROVIDERS: ATTEND Internal Medicine Nephrology
DX: I12.9 Hypertensive chronic kidney disease with stage 1 through stage 4 chronic kidney disease, or unspecified chronic kidney disease (principal); N18.3 Chronic kidney disease, stage 3 (moderate); E11.22 Type 2 diabetes mellitus with diabetic chronic kidney disease; D63.1 Anemia in chronic kidney disease
CPT/HCPCS: 36415; 80048; 82043; 82570; 82728; 83036; 83540; 83550; 85025

== ENCOUNTER 2019-07-26 13:29 | Emergency (ER) | payer MEDICARE ==
--- NOTE | 2019-07-26 14:34 | ER Document Report ---
ED Medical Screen (RME) - General Chief Complaint: Abnormal Lab Results Stated Complaint: ABNORMAL LABS,CHEST PAIN Time Seen by Provider: 07/26/19 14:28 Primary Care Provider: BENIGNO MELO MD [Primary Care Provider] - Follow up as needed Mode of Arrival: Wheelchair Information source: Patient Notes: Patient presents after having outpatient lab work performed yesterday and been advised to come here per his sleep lab technologist. Review of patient's outpatient labs demonstrates an elevated potassium of 5.2 and an increased BUN and creatinine up from his normal baseline. Patient does have a history of chronic kidney disease stage IV, diabetes, CHF, A. fib, COPD and a GI bleed. Patient reports nausea and decreased urine output. Patient states he only voided once yesterday. I have greeted and performed a rapid initial assessment of this patient. A comprehensive ED assessment and evaluation of the patient, analysis of test results and completion of the medical decision making process will be conducted by additional ED providers. TRAVEL OUTSIDE OF THE [place] IN LAST 30 DAYS: No - Related Data Allergies/Adverse Reactions: budesonide [From Pulmicort] Allergy (Verified 07/26/19 14:28) Penicillins Allergy (Verified 07/26/19 14:28) Anaphylaxis Sulfa (Sulfonamide Antibiotics) Allergy (Verified 07/26/19 14:28) itching Past Medical History - Past Medical History Cardiac Medical History: Reports: Hx Atrial Fibrillation, Hx Congestive Heart Failure, Hx Coronary Artery Disease, Hx Heart Attack, Hx Hypercholesterolemia, Hx Hypertension, Hx Pulmonary Embolism Pulmonary Medical History: Reports: Hx Asthma, Hx Bronchitis, Hx COPD, Hx Pneumonia, Hx Respiratory Failure Denies: Hx Tuberculosis Neurological Medical History: Reports: Hx Cerebrovascular Accident, Hx Seizures - 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 Denies: Hx Peritoneal Dialysis GI Medical History: Reports: Hx Gastroesophageal Reflux Disease Musculoskeltal Medical History: Reports Hx Arthritis, Reports Hx Musculoskeletal Deformity, Reports Hx Musculoskeletal Trauma Psychiatric Medical History: Reports: Hx Depression Traumatic Medical History: Reports: Hx Fractures - Reattachment of the second finger right hand Past Surgical History: Reports: Hx Cardiac Catheterization, Hx Cholecystectomy, Hx Orthopedic Surgery - Right knee 6 reattachment of second finger right hand, Hx Pacemaker, Other - Cardiac ablation - Immunizations Hx Diphtheria, Pertussis, Tetanus Vaccination: Yes Physical Exam - Vital signs Vitals: Temp Pulse Resp BP Pulse Ox 98.7 F 64 20 141/62 H 94 07/26/19 14:22 07/26/19 14:22 07/26/19 14:22 07/26/19 14:22 07/26/19 14:22 - General General appearance: Appears well, Alert - Abdominal Tenderness: Nontender Course - Vital Signs Vital signs: Temp Pulse Resp BP Pulse Ox 98.7 F 64 20 141/62 H 94 07/26/19 14:22 07/26/19 14:22 07/26/19 14:22 07/26/19 14:22 07/26/19 14:22 Doctor's Discharge - Discharge Referrals: BENIGNO MELO MD [Primary Care Provider] - Follow up as needed
[2019-07-26 16:31] LABS: HEMATOCRIT 32.4 % (37.9-51.0); HEMOGLOBIN 10.9 g/dL (13.5-17.0); MEAN CORPUSCULAR HEMOGLOBIN 26.9 pg (27.0-33.4); MEAN CORPUSCULAR HGB CONC 33.6 g/dL (32.0-36.0); MEAN CORPUSCULAR VOLUME 80 fl (80-97); RED BLOOD COUNT 4.05 10^6/uL (4.35-5.55); WHITE BLOOD COUNT 10.9 10^3/uL (4.0-10.5)
[2019-07-26 16:42] LABS: ALBUMIN 4.3 g/dL (3.5-5.0); ALKALINE PHOSPHATASE 84 U/L (38-126); ANION GAP 13 (5-19); ASPARTATE AMINO TRANSFERASE 23 U/L (17-59); BILIRUBIN,DIRECT 0.4 mg/dL (0.0-0.4); BILIRUBIN,TOTAL 0.4 mg/dL (0.2-1.3); BLOOD UREA NITROGEN 28 mg/dL (7-20); CALCIUM 9.7 mg/dL (8.4-10.2); CARBON DIOXIDE 23 mmol/L (22-30); CHLORIDE 104 mmol/L (98-107); GLUCOSE 219 mg/dL (75-110); POTASSIUM 4.4 mmol/L (3.6-5.0)
[2019-07-26 16:59] LABS: PLATELET COUNT 273 10^3/uL (150-450)
[2019-07-26 17:00] LABS: ABSOLUTE LYMPHOCYTES# (MANUAL) 2.5 10^3/uL (0.5-4.7); ABSOLUTE MONOCYTES # (MANUAL) 0.7 10^3/uL (0.1-1.4); ANISOCYTOSIS 3+; BASOPHILS % (MANUAL) 0 % (0-2); EOSINOPHILS % (MANUAL) 1 % (0-6); LYMPHOCYTES % (MANUAL) 23 % (13-45); MONOCYTES % (MANUAL) 6 % (3-13); OVALOCYTES 1+; SEGMENTED NEUTROPHILS % (MAN) 70 % (42-78); TEAR DROP CELLS SLIGHT; TOTAL CELLS COUNTED 100; TOXIC GRANULATION SLIGHT; TOXIC VACUOLATION PRESENT
[2019-07-26 17:01] LABS: PLATELET CLUMPS PRESENT; PLATELET COMMENT ADEQUATE
--- NOTE | 2019-07-26 17:23 | EKG REPORT ---
SEVERITY:- NORMAL ECG - SINUS RHYTHM : Confirmed by: Francisco Lindsay MD 26-Jul-2019 17:22:55
--- NOTE | 2019-07-26 17:45 | ER Document Report ---
ED General - General Chief Complaint: Abnormal Lab Results Stated Complaint: ABNORMAL LABS,CHEST PAIN Time Seen by Provider: 07/26/19 14:28 Primary Care Provider: BENIGNO MELO MD [Primary Care Provider] - Follow up as needed Mode of Arrival: Wheelchair TRAVEL OUTSIDE OF THE [place] IN LAST 30 DAYS: No - HPI Onset: Other - unknown onset Quality of pain: No pain Severity: Mild Pain Level: Denies Associated symptoms: None Exacerbated by: Denies Relieved by: Denies Similar symptoms previously: No Recently seen / treated by doctor: Yes - patient saw his nephrology clinic yesterday and had labs Notes: 53 year old male with a history of CKD, AFib, CHF, CAD, HTN, HLD, PE, DM, CVA, GERD, Depression here in the ER because he was called by his Nephrology clinic and told he needed to come to the ER immediately due to abnormal lab results from yesterdays lab draw. Looking over the patient's labs from yesterday his creatinine was 2.5 which is up from his baseline of around 2 and his K is 5.2 which is slightly above the normal range. The patient has no complaints personally and is only in the ER due to being called and told to come to the ER by his Nephrology Clinic. - Related Data Allergies/Adverse Reactions: budesonide [From Pulmicort] Allergy (Verified 07/26/19 14:28) Penicillins Allergy (Verified 07/26/19 14:28) Anaphylaxis Sulfa (Sulfonamide Antibiotics) Allergy (Verified 07/26/19 14:28) itching Home Medications: chf. afib. gi bleed. dm. copd Past Medical History - General Information source: Patient - Social History Smoking Status: Current Every Day Smoker Chew tobacco use (# tins/day): No Frequency of alcohol use: None Drug Abuse: None Family History: None, Reviewed & Not Pertinent Patient has suicidal ideation: No Patient has homicidal ideation: No - Past Medical History Cardiac Medical History: Reports: Hx Atrial Fibrillation, Hx Congestive Heart Failure, Hx Coronary Artery Disease, Hx Heart Attack, Hx Hypercholesterolemia, H x Hypertension, Hx Pulmonary Embolism Pulmonary Medical History: Reports: Hx Asthma, Hx Bronchitis, Hx COPD, Hx Pneumonia, Hx Respiratory Failure Denies: Hx Tuberculosis Neurological Medical History: Reports: Hx Cerebrovascular Accident, Hx Seizures - 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 Denies: Hx Peritoneal Dialysis GI Medical History: Reports: Hx Gastroesophageal Reflux Disease Musculoskeletal Medical History: Reports Hx Arthritis, Reports Hx Musculoskeletal Deformity, Reports Hx Musculoskeletal Trauma Psychiatric Medical History: Reports: Hx Depression Traumatic Medical History: Reports: Hx Fractures - Reattachment of the second finger right hand Past Surgical History: Reports: Hx Cardiac Catheterization, Hx Cholecystectomy, Hx Orthopedic Surgery - Right knee 6 reattachment of second finger right hand, Hx Pacemaker, Other - Cardiac ablation - Immunizations Hx Diphtheria, Pertussis, Tetanus Vaccination: Yes Hx Pneumococcal Vaccination: 10/13/12 Review of Systems - Review of Systems Constitutional: No symptoms reported EENT: No symptoms reported Cardiovascular: No symptoms reported Respiratory: No symptoms reported Gastrointestinal: No symptoms reported Genitourinary: No symptoms reported Male Genitourinary: No symptoms reported Musculoskeletal: No symptoms reported Skin: No symptoms reported Hematologic/Lymphatic: No symptoms reported Neurological/Psychological: No symptoms reported -: Yes All other systems reviewed and negative Physical Exam - Vital signs Vitals: Temp Pulse Resp BP Pulse Ox 98.7 F 64 20 141/62 H 94 07/26/19 14:22 07/26/19 14:22 07/26/19 14:22 07/26/19 14:22 07/26/19 14:22 - Notes Notes: GENERAL: Well-appearing, well-nourished and in no acute distress. HEAD: Atraumatic, normocephalic. EYES: Pupils equal round and reactive to light, extraocular movements intact, sclera anicteric, conjunctiva are normal. ENT: TMs normal, nares patent, oropharynx clear without exudates. Moist mucous membranes. NECK: Normal range of motion, supple without lymphadenopathy or JVD. LUNGS: Breath sounds clear to auscultation bilaterally and equal. No wheezes rales or rhonchi. HEART: Regular rate and rhythm without murmurs, rubs or gallops. ABDOMEN: Soft, nontender, normoactive bowel sounds. No guarding, no rebound. No masses appreciated. EXTREMITIES: Normal range of motion, no pitting or edema. No clubbing or cyanosis. NEUROLOGICAL: Cranial nerves II through XII grossly intact. Normal speech, normal gait. PSYCH: Normal mood, normal affect. SKIN: Warm, Dry, normal turgor, no rashes or lesions noted. Course - Re-evaluation Re-evalutation: 07/26/19 17:54 The patient had labs yesterday which showed a creatinine of 2.5 and a K of 5.2. On redraw today, his creatinine is 2.08 and his K is 4.4 which no interventions being done. There could have been a lab error yesterday or the patient could have orally hydrated. The patient says he urinates once a day and he is unable to provided a urine sample for testing in the ER today. The patient says he had a urine sample collected by his Nephrology Clinic yesterday but I cannot find these results in the EMR. Patient told to follow up with his PCP or Neurology for a UA since he did not want to stay/wait in the ER until he could urinate. I think this is safe and reasonable given how long he has already been in the ER, since he has no UTI symptoms, and since his he was sent to the ER for what seems like a lab error in the first place. - Vital Signs Vital signs: Temp Pulse Resp BP Pulse Ox 98.7 F 64 20 141/62 H 94 07/26/19 14:22 07/26/19 14:22 07/26/19 14:22 07/26/19 14:22 07/26/19 14:22 - Laboratory Result Diagrams: 07/26/19 15:34 07/26/19 15:34 Laboratory results interpreted by me: 07/26/19 07/26/19 15:34 15:34 WBC 10.9 H RBC 4.05 L Hgb 10.9 L Hct 32.4 L MCH 26.9 L RDW 22.0 H BUN 28 H Creatinine 2.08 H Est GFR ( Amer) 40 L Est GFR (MDRD) Non-Af 33 L Glucose 219 H Discharge - Discharge Clinical Impression: Hyperkalemia Chronic kidney disease Qualifiers: Chronic kidney disease stage: unspecified stage Qualified Code(s): N18.9 - Chronic kidney disease, unspecified Condition: Stable Disposition: HOME, SELF-CARE Instructions: Kidney Function Abnormality ([facility]) Additional Instructions: You were told to come to the ER since your kidney function head worsened and since your potassium was up. On repeat lab draw in the ER today your creatinine was 2.08 which is baseline for you and your potassium was 4.4 which is in the normal range). Follow up with your [facility]view programmer and primary care doctor and tell them you had repeat blood work but that you could not produce a urine sample to check for a UTI. You should have your [facility] programmer or primary care doctor check your urine to ensure you dont have a UTI. Referrals: BENIGNO MELO MD [Primary Care Provider] - Follow up as needed
[2019-07-26 18:05] VITALS: BP 137/69
== END 2019-07-26 18:03 | disposition home or self-care (01) ==
LOC: ER 13:29
DX: E87.5 Hyperkalemia (principal); I13.2 Hypertensive heart and chronic kidney disease with heart failure and with stage 5 chronic kidney disease, or end stage renal disease; E11.22 Type 2 diabetes mellitus with diabetic chronic kidney disease; N18.6 End stage renal disease; I50.9 Heart failure, unspecified; I48.91 Unspecified atrial fibrillation; F17.200 Nicotine dependence, unspecified, uncomplicated; I25.10 Atherosclerotic heart disease of native coronary artery without angina pectoris; K92.2 Gastrointestinal hemorrhage, unspecified; J44.9 Chronic obstructive pulmonary disease, unspecified; Z79.899 Other long term (current) drug therapy; Z95.0 Presence of cardiac pacemaker; Z88.8 Allergy status to other drugs, medicaments and biological substances; Z87.892 Personal history of anaphylaxis; Z88.0 Allergy status to penicillin; Z88.2 Allergy status to sulfonamides
CPT/HCPCS: 36415; 80053; 85025; 93005; 93010; 99283

== ENCOUNTER 2019-08-10 09:12 | Outpatient (CLI) | payer MEDICARE ==
[~2019-08-10 09:12] MED LIST changes: +ACETAMINOPHEN 325 MG TABLET PO PRN; +CONTAINER EMPTY IV PRN; +DEXTROSE 5%-WATER 250 ML IV PRN; +DIPHENHYDRAMINE HCL 50 MG/ML VIAL IV PRN; -FERUMOXYTOL (NON-ESRD) 510 MG/NS 100 ML IV PRN; +IMMUNE GLOB GAM CAPRYLATE IV PRN; -NORMAL SALINE 250 ML IV PRN
[2019-08-10 09:23] VITALS: BP 122/44
== END 2019-08-10 12:15 | disposition home or self-care (01) ==
LOC: II 09:12 → 5TH 09:14 → II 12:15
PROVIDERS: ATTEND Internal Medicine Hematology & Oncology
DX: Z51.11 Encounter for antineoplastic chemotherapy (principal); D80.1 Nonfamilial hypogammaglobulinemia
CPT/HCPCS: 96365; 96366; A9270 ×2; J1200; J1561; 96375; J3490

== ENCOUNTER 2020-02-09 08:00 | Outpatient (CLI) | payer MEDICARE ==
[~2020-02-09 08:00] MED LIST changes: -ACETAMINOPHEN 325 MG TABLET PO PRN; -CONTAINER EMPTY IV PRN; -DEXTROSE 5%-WATER 250 ML IV PRN; -DIPHENHYDRAMINE HCL 50 MG/ML VIAL IV PRN; +FERUMOXYTOL (NON-ESRD) 510 MG/NS 100 ML IV PRN; -IMMUNE GLOB GAM CAPRYLATE IV PRN; +NORMAL SALINE 250 ML IV PRN
[2020-02-09 09:00] VITALS: BP 114/59
== END 2020-02-09 09:20 | disposition home or self-care (01) ==
LOC: II 08:00 → 5TH 08:01 → II 09:20
PROVIDERS: ATTEND Internal Medicine
DX: D50.9 Iron deficiency anemia, unspecified (principal); K90.9 Intestinal malabsorption, unspecified
CPT/HCPCS: 96365; Q0138; J7050

== ENCOUNTER 2020-02-16 08:01 | Outpatient (CLI) | payer MEDICARE ==
[~2020-02-16 08:01] MED LIST changes: -FERUMOXYTOL (NON-ESRD) 510 MG/NS 100 ML IV PRN; +FERUMOXYTOL 510 MG in NORMAL SALINE 100 ML IV PRN
[2020-02-16 08:36] VITALS: BP 109/68
== END 2020-02-16 09:30 | disposition home or self-care (01) ==
LOC: II 08:01 → 5TH 08:03 → II 09:30
PROVIDERS: ATTEND Internal Medicine
DX: D50.9 Iron deficiency anemia, unspecified (principal); K90.9 Intestinal malabsorption, unspecified
CPT/HCPCS: 96365; Q0138; J7050

== ENCOUNTER 2020-05-16 22:10 | Emergency (ER) | payer MEDICARE ==
[2020-05-16 22:47] LABS: ABSOLUTE BASOPHILS # (AUTO) 0.2 10^3/uL (0.0-0.2); ABSOLUTE EOSINOPHILS # (AUTO) 0.2 10^3/uL (0.0-0.6); ABSOLUTE LYMPHOCYTES (AUTO) 1.2 10^3/uL (0.5-4.7); ABSOLUTE MONOCYTES (AUTO) 0.9 10^3/uL (0.1-1.4); ABSOLUTE NEUT (AUTO) 8.9 10^3/uL (1.7-8.2); BASOPHILS % (AUTO) 1.4 % (0-2); EOSINOPHILS % (AUTO) 2.1 % (0-6); HEMATOCRIT 17.9 % (37.9-51.0); LYMPHOCYTES % (AUTO) 10.3 % (13-45); MEAN CORPUSCULAR HEMOGLOBIN 27.2 pg (27.0-33.4); MEAN CORPUSCULAR HGB CONC 32.9 g/dL (32.0-36.0); MEAN CORPUSCULAR VOLUME 83 fl (80-97); MONOCYTES % (AUTO) 7.9 % (3-13); PLATELET COUNT 195 10^3/uL (150-450); RED BLOOD COUNT 2.17 10^6/uL (4.35-5.55); RED CELL DISTRIBUTION WIDTH 15.9 % (11.5-14.0); SEGMENTED NEUTROPHILS % (AUTO) 78.3 % (42-78); TOTAL CELLS COUNTED % (AUTO) 100 %; WHITE BLOOD COUNT 11.4 10^3/uL (4.0-10.5)
[2020-05-16 22:52] LABS: HEMOGLOBIN 5.9 g/dL (13.5-17.0)
[2020-05-16 22:59] LABS: ALBUMIN 3.7 g/dL (3.5-5.0); ALKALINE PHOSPHATASE 99 U/L (38-126); ANION GAP 9 (5-19); ASPARTATE AMINO TRANSFERASE 15 U/L (17-59); BILIRUBIN,DIRECT 0.3 mg/dL (0.0-0.4); BILIRUBIN,TOTAL 0.3 mg/dL (0.2-1.3); BLOOD UREA NITROGEN 74 mg/dL (7-20); CALCIUM 9.5 mg/dL (8.4-10.2); CARBON DIOXIDE 23 mmol/L (22-30); CHLORIDE 102 mmol/L (98-107); GLUCOSE 166 mg/dL (75-110); TOTAL PROTEIN 5.8 g/dL (6.3-8.2)
--- NOTE | 2020-05-16 23:04 | ER Document Report ---
Doctor's Note Notes: 05/16/20 23:02 Pt was being seen in the ED and became angry with his . Due to this he stood up, pulled off his monitor leads told me "fuck this, I'm leaving," and pulled out his iv. I informed the staff that regarding this gentleman and asked them to bandage his arm which was bleeding on the floor in the hallway. The was informed we would call with the blood results.
--- NOTE | 2020-05-16 23:16 | ER Document Report ---
ED General - General Chief Complaint: GI Bleeding Stated Complaint: WEAKNESS,PAIN Time Seen by Provider: 05/16/20 22:31 Primary Care Provider: BENIGNO MELO MD [Primary Care Provider] - Follow up as needed TRAVEL OUTSIDE OF THE [place] IN LAST 30 DAYS: No - HPI Notes: 54-year-old male presents with generalized weakness. Patient has a longstanding history of chronic GI bleeding, he experiences rectal bleeding on a daily basis, last episode was around 2:30 PM this afternoon. He follows with hematology, he has chronic blood loss anemia and frequently receives transfusions. He states that he received 2 units on 05/08 and was told to "keep the green bracelet on because you're probably going to need more". Patient at some point has seen GI but really does not know the results. He states that on Thursday he is going to see a surgeon "to see where the leakage was coming from". Patient reports overall he is having a bad day. He states he "passed out 50 times today". He has generalized weakness and dizziness. He states he is upset that his called EMS when she got home from work as he had no plans on coming to the hospital today. He also reports a painful lump under his left breast which has been present for many years. - Related Data Allergies/Adverse Reactions: budesonide [From Pulmicort] Allergy (Verified 05/16/20 22:39) Penicillins Allergy (Verified 05/16/20 22:39) Anaphylaxis Sulfa (Sulfonamide Antibiotics) Allergy (Verified 05/16/20 22:39) itching Past Medical History - General Information source: Patient - Social History Smoking Status: Former Smoker Family History: None, Reviewed & Not Pertinent Patient has homicidal ideation: No - Past Medical History Cardiac Medical History: Reports: Hx Atrial Fibrillation, Hx Congestive Heart Failure, Hx Coronary Artery Disease, Hx Heart Attack, Hx Hypercholesterolemia, Hx Hypertension, Hx Pulmonary Embolism Pulmonary Medical History: Reports: Hx Asthma, Hx Bronchitis, Hx COPD, Hx Pneumonia, Hx Respiratory Failure Denies: Hx Tuberculosis Neurological Medical History: Reports: Hx Cerebrovascular Accident, Hx Seizures - 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 Denies: Hx Peritoneal Dialysis GI Medical History: Reports: Hx Gastroesophageal Reflux Disease Musculoskeletal Medical History: Reports Hx Arthritis, Reports Hx Musculoskeletal Deformity, Reports Hx Musculoskeletal Trauma Psychiatric Medical History: Reports: Hx Depression Traumatic Medical History: Reports: Hx Fractures - Reattachment of the second finger right hand Past Surgical History: Reports: Hx Cardiac Catheterization, Hx Cholecystectomy, Hx Orthopedic Surgery - Right knee 6 reattachment of second finger right hand, Hx Pacemaker, Other - Cardiac ablation - Immunizations Hx Diphtheria, Pertussis, Tetanus Vaccination: Yes Hx Pneumococcal Vaccination: 10/13/12 Review of Systems - Review of Systems Constitutional: denies: See HPI, Fever EENT: No symptoms reported Cardiovascular: No symptoms reported Respiratory: No symptoms reported Gastrointestinal: See HPI Genitourinary: No symptoms reported Male Genitourinary: No symptoms reported Musculoskeletal: See HPI Skin: No symptoms reported Hematologic/Lymphatic: Anemia Neurological/Psychological: See HPI Physical Exam - Vital signs Vitals: Resp Pulse Ox 23 H 100 05/16/20 22:14 05/16/20 22:14 - General General appearance: Appears well, Alert In distress: None - HEENT Head: Normocephalic, Atraumatic Eyes: Pale conjunctiva Pupils: PERRL - Respiratory Chest status: Chest mass - There is a mobile well-circumscribed mass to the inferior left breast Breath sounds: Normal - Cardiovascular Rhythm: Regular Heart sounds: Normal auscultation Normal capillary refill: Yes - Abdominal Inspection: Obese Tenderness: Nontender - Rectal Notes: Unable to perform rectal exam - Extremities General upper extremity: Normal ROM General lower extremity: Normal ROM - Neurological Neuro grossly intact: Yes Cognition: Normal Orientation: AAOx4 - Psychological Associated symptoms: Angry - Skin Skin Temperature: Warm Course - Re-evaluation Re-evalutation: 54-year-old male history of chronic blood loss anemia who receives multiple transfusions, CKD and COPD here with generalized weakness and reported multiple syncopal events at home. He last received 2 units on 05/08. Patient had previously attempted to leave the emergency department, however he is now agreeable to stay for transfusion. On exam he is alert and oriented, he is hemodynamically stable, abdomen is soft. Labs have already resulted which demonstrates a hemoglobin of 5.9, he has had values similar to this in the past. Plan to transfuse 2 units. Patient is resistant to admission however is agreeable to stay for transfusion. He is to see Dr. Pascual on Thursday. 05/17/20 04:10 Into check on patient, his second unit is almost done transfusing. His skin has more pink coloration to it. He denies any complaints. 05/17/20 04:40 Blood transfusion has finished. Patient is adamant about going home im mediately. I did have a separate conversation with his , she does relate that she is frustrated as this has been going on for 3 years. She is hopeful that on Thursday some answers will be given about where the chronic bleeding is coming from. Patient has remained hemodynamically stable while in the emergency department, he is oriented and capable of making medical decisions. I discussed strict return precautions. Patient stable at time of discharge. - Vital Signs Vital signs: Temp Pulse Resp BP Pulse Ox 97.4 F 68 15 102/48 L 100 05/17/20 04:28 05/17/20 04:28 05/17/20 04:31 05/17/20 04:31 05/17/20 04:31 - Laboratory Result Diagrams: 05/16/20 22:23 05/16/20 22:23 Laboratory results interpreted by me: 05/16/20 05/16/20 05/16/20 22:23 22:23 22:23 WBC 11.4 H RBC 2.17 L Hgb 5.9 L Hct 17.9 L RDW 15.9 H Lymph % (Auto) 10.3 L Absolute Neuts (auto) 8.9 H Seg Neutrophils % 78.3 H Sodium 134.1 L BUN 74 H Creatinine 3.67 H Est GFR ( Amer) 21 L Est GFR (MDRD) Non-Af 17 L Glucose 166 H AST 15 L Total Protein 5.8 L Crossmatch See Detail Discharge - Discharge Clinical Impression: Chronic GI bleeding, Chronic blood loss anemia Disposition: HOME, SELF-CARE Additional Instructions: Please follow-up with surgery as planned. Continue all medications as prescribed. Return to the emergency department immediately for any concerning worsening symptoms. Referrals: BENIGNO MELO MD [Primary Care Provider] - Follow up as needed ANTONY ENCISO MD [ACTIVE STAFF] - Follow up as needed
[2020-05-16] MEDS ORDERED: NORMAL SALINE 250 ML IV PRN ×2 (23:27)
[2020-05-17 04:36] VITALS: BP 102/48
== END 2020-05-17 04:58 | disposition home or self-care (01) ==
LOC: ER 22:10
DX: D50.0 Iron deficiency anemia secondary to blood loss (chronic) (principal); K62.5 Hemorrhage of anus and rectum; R53.1 Weakness; R55 Syncope and collapse; R42 Dizziness and giddiness; N63.0 Unspecified lump in unspecified breast; I25.10 Atherosclerotic heart disease of native coronary artery without angina pectoris; I10 Essential (primary) hypertension; J44.9 Chronic obstructive pulmonary disease, unspecified; E11.9 Type 2 diabetes mellitus without complications; Z87.891 Personal history of nicotine dependence; Z88.8 Allergy status to other drugs, medicaments and biological substances; Z88.0 Allergy status to penicillin; Z88.2 Allergy status to sulfonamides
CPT/HCPCS: 99285; 96360; 96361; 86900; 86901; 36415; 36430; 86850; 85025; 80053; 86920; P9016; J7050

== ENCOUNTER 2020-05-25 17:04 | Inpatient (IN) | payer MEDICARE ==
--- NOTE | 2020-05-25 17:28 | ER Document Report ---
ED Medical Screen (RME) - General Chief Complaint: Abnormal Lab Results Stated Complaint: ABNORMAL LABS Time Seen by Provider: 05/25/20 17:20 Primary Care Provider: BENIGNO MELO MD [Primary Care Provider] - Follow up as needed Mode of Arrival: Wheelchair Information source: Patient Notes: 54-year-old male presented to ED for abnormal blood work. He has a history of a GI bleed has seen a GI surgeon Thursday. He states that the GI surgeon told him that when he was given blood transfusions last he should have been admitted at that time and given more blood transfusions. His hemoglobin was 5.9 on 16 May and yesterday at the patrol captain office his blood hemoglobin was 4.2. Patient is very short of breath. He is on oxygen 4 L at this time. states he has been on the 4 L for a long time. He states he is feeling much more start for oxygen since his hemoglobin is low. states he is very weak tired he is very pale. Patient states that he did have chest pain day before yesterday. And both arms went numb. states she monitors him with the pulse ox and blood pressure cuff his pulse went down to the 30s but then the pain started ge tting better so she did not bring him because he did not want to come in. Patient told her that if it happened again he wanted to call 911. He has a history of end-stage renal disease and a GI bleed that they do not know where he is. states he has had it off and on for several years but every time they go to look for it it stops bleeding. I have greeted and performed a rapid initial assessment of this patient. A comprehensive ED assessment and evaluation of the patient, analysis of test results and completion of medical decision making process will be conducted by an additional ED providers. TRAVEL OUTSIDE OF THE [place] IN LAST 30 DAYS: No - Related Data Allergies/Adverse Reactions: budesonide [From Pulmicort] Allergy (Verified 05/16/20 22:39) Penicillins Allergy (Verified 05/16/20 22:39) Anaphylaxis Sulfa (Sulfonamide Antibiotics) Allergy (Verified 05/16/20 22:39) itching Past Medical History - Past Medical History Cardiac Medical History: Reports: Hx Atrial Fibrillation, Hx Congestive Heart Failure, Hx Coronary Artery Disease, Hx Heart Attack, Hx Hypercholesterolemia, Hx Hypertension, Hx Pulmonary Embolism Pulmonary Medical History: Reports: Hx Asthma, Hx Bronchitis, Hx COPD, Hx Pneumonia, Hx Respiratory Failure Denies: Hx Tuberculosis Neurological Medical History: Reports: Hx Cerebrovascular Accident, Hx Seizures - 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 Denies: Hx Peritoneal Dialysis GI Medical History: Reports: Hx Gastroesophageal Reflux Disease Musculoskeltal Medical History: Reports Hx Arthritis, Reports Hx Musculoskeletal Deformity, Reports Hx Musculoskeletal Trauma Psychiatric Medical History: Reports: Hx Depression Traumatic Medical History: Reports: Hx Fractures - Reattachment of the second finger right hand Past Surgical History: Reports: Hx Cardiac Catheterization, Hx Cholecystectomy, Hx Orthopedic Surgery - Right knee 6 reattachment of second finger right hand, Hx Pacemaker, Other - Cardiac ablation - Immunizations Hx Diphtheria, Pertussis, Tetanus Vaccination: Yes Physical Exam - Vital signs Vitals: Temp Pulse Resp BP Pulse Ox 98.2 F 83 22 H 132/50 H 100 05/25/20 17:11 05/25/20 17:11 05/25/20 17:11 05/25/20 17:11 05/25/20 17:11 Course - Vital Signs Vital signs: Temp Pulse Resp BP Pulse Ox 98.2 F 83 22 H 132/50 H 100 05/25/20 17:11 05/25/20 17:11 05/25/20 17:11 05/25/20 17:11 05/25/20 17:11 Doctor's Discharge - Discharge Referrals: BENIGNO MELO MD [Primary Care Provider] - Follow up as needed
[2020-05-25 18:06] LABS: ABSOLUTE BASOPHILS # (AUTO) 0.1 10^3/uL (0.0-0.2); ABSOLUTE EOSINOPHILS # (AUTO) 0.3 10^3/uL (0.0-0.6); ABSOLUTE LYMPHOCYTES (AUTO) 1.1 10^3/uL (0.5-4.7); ABSOLUTE MONOCYTES (AUTO) 0.6 10^3/uL (0.1-1.4); ABSOLUTE NEUT (AUTO) 4.8 10^3/uL (1.7-8.2); BASOPHILS % (AUTO) 1.7 % (0-2); EOSINOPHILS % (AUTO) 3.7 % (0-6); HEMATOCRIT 15.6 % (37.9-51.0); LYMPHOCYTES % (AUTO) 15.4 % (13-45); MEAN CORPUSCULAR HEMOGLOBIN 28.4 pg (27.0-33.4); MEAN CORPUSCULAR HGB CONC 33.4 g/dL (32.0-36.0); MEAN CORPUSCULAR VOLUME 85 fl (80-97); MONOCYTES % (AUTO) 8.8 % (3-13); PLATELET COUNT 210 10^3/uL (150-450); RED BLOOD COUNT 1.84 10^6/uL (4.35-5.55); RED CELL DISTRIBUTION WIDTH 15.8 % (11.5-14.0); SEGMENTED NEUTROPHILS % (AUTO) 70.4 % (42-78); TOTAL CELLS COUNTED % (AUTO) 100 %; WHITE BLOOD COUNT 6.9 10^3/uL (4.0-10.5)
[2020-05-25 18:13] LABS: HEMOGLOBIN 5.2 g/dL (13.5-17.0)
[2020-05-25 18:21] LABS: ALBUMIN 4.1 g/dL (3.5-5.0); ALKALINE PHOSPHATASE 104 U/L (38-126); ANION GAP 11 (5-19); ASPARTATE AMINO TRANSFERASE 17 U/L (17-59); BILIRUBIN,DIRECT 0.2 mg/dL (0.0-0.4); BILIRUBIN,TOTAL 0.4 mg/dL (0.2-1.3); BLOOD UREA NITROGEN 50 mg/dL (7-20); CALCIUM 9.5 mg/dL (8.4-10.2); CARBON DIOXIDE 25 mmol/L (22-30); CHLORIDE 106 mmol/L (98-107); GLUCOSE 91 mg/dL (75-110); POTASSIUM 4.8 mmol/L (3.6-5.0); TOTAL PROTEIN 6.4 g/dL (6.3-8.2)
[2020-05-25] MEDS ORDERED: NORMAL SALINE 250 ML IV PRN ×2 (18:25)
[2020-05-25] MEDS ORDERED: PANTOPRAZOLE SODIUM 40 MG VIAL IV ONE (22:05)
--- NOTE | 2020-05-25 22:07 | ER Document Report ---
ED General - General Chief Complaint: Abnormal Lab Results Stated Complaint: ABNORMAL LABS Time Seen by Provider: 05/25/20 17:20 Mode of Arrival: Wheelchair Notes: Patient is a 54-year-old male that comes emergency department for chief complaint of black stools for several days, increasing tiredness and shortness of breath, intermittent lightheadedness. He denies chest pain although he states he had some discomfort in his chest yesterday. He is able to eat, denies vomiting. He states he has had intermittent gastrointestinal bleeds, frequent low hemoglobin and transfusions. Patient states that he followed with general surgery and was referred to gastroenterology at [place] but is waiting for the appointment. Last endoscopy or colonoscopy was over 3 years ago. He is not on a blood thinner. He denies anti-inflammatories. He states he has never been told why he has low blood counts. He does have history of chronic kidney disease and follows with Dr. Odom. He also has a history of atrial fibrilla tion, hypertension, CAD, COPD, sleep apnea, and is on 4 L nasal cannula at all times. TRAVEL OUTSIDE OF THE [place] IN LAST 30 DAYS: No - Related Data Allergies/Adverse Reactions: budesonide [From Pulmicort] Allergy (Verified 05/16/20 22:39) Penicillins Allergy (Verified 05/16/20 22:39) Anaphylaxis Sulfa (Sulfonamide Antibiotics) Allergy (Verified 05/16/20 22:39) itching Past Medical History - General Information source: Patient - Social History Smoking Status: Never Smoker Frequency of alcohol use: None Drug Abuse: None Lives with: Family Family History: None, Reviewed & Not Pertinent - Past Medical History Cardiac Medical History: Reports: Hx Atrial Fibrillation, Hx Congestive Heart Failure, Hx Coronary Artery Disease, Hx Heart Attack, Hx Hypercholesterolemia, Hx Hypertension, Hx Pulmonary Embolism Pulmonary Medical History: Reports: Hx Asthma, Hx Bronchitis, Hx COPD, Hx Pneumonia, Hx Respiratory Failure Denies: Hx Tuberculosis Neurological Medical History: Reports: Hx Cerebrovascular Accident, Hx Seizures - 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 Denies: Hx Peritoneal Dialysis GI Medical History: Reports: Hx Gastroesophageal Reflux Disease Musculoskeletal Medical History: Reports Hx Arthritis, Reports Hx Musculoskeletal Deformity, Reports Hx Musculoskeletal Trauma Psychiatric Medical History: Reports: Hx Depression Traumatic Medical History: Reports: Hx Fractures - Reattachment of the second fi nger right hand Past Surgical History: Reports: Hx Cardiac Catheterization, Hx Cholecystectomy, Hx Orthopedic Surgery - Right knee 6 reattachment of second finger right hand, Hx Pacemaker, Other - Cardiac ablation - Immunizations Hx Diphtheria, Pertussis, Tetanus Vaccination: Yes Hx Pneumococcal Vaccination: 10/13/12 Review of Systems - Review of Systems Constitutional: No symptoms reported EENT: No symptoms reported Cardiovascular: See HPI Respiratory: See HPI Gastrointestinal: See HPI Genitourinary: No symptoms reported Male Genitourinary: No symptoms reported Musculoskeletal: No symptoms reported Skin: No symptoms reported Hematologic/Lymphatic: No symptoms reported Neurological/Psychological: No symptoms reported Physical Exam - Vital signs Vitals: Temp Pulse Resp BP Pulse Ox 98.2 F 83 22 H 132/50 H 100 05/25/20 17:11 05/25/20 17:11 05/25/20 17:11 05/25/20 17:11 05/25/20 17:11 - Notes Notes: GENERAL: Alert, interacts well. No acute distress. HEAD: Normocephalic, atraumatic. EYES: Pupils equal, round, and reactive to light. Extraocular movements intact. ENT: Oral mucosa moist, tongue midline. Oropharynx unremarkable. Airway patent. LUNGS: Decreased bilaterally but no wheezes, rales, or rhonchi. No respiratory distress. Non-tender chest wall. HEART: Regular rate and rhythm. No murmur ABDOMEN: Soft, non-tender. Non-distended. Bowel sounds present in all 4 quadrants. RECTAL: No pain, masses, or current heavy bleeding noted. Some dark stool is noted and this was Hemoccult positive. Otherwise unremarkable. Exam performed with Candis CAM at bedside. EXTREMITIES: Moves all 4 extremities spontaneously. No edema, normal radial and dorsalis pedis pulses bilaterally. No cyanosis. BACK: no cervical, thoracic, lumbar midline tenderness. No saddle anesthesia, normal distal neurovascular exam. Moves all extremities in full range of motion. NEUROLOGICAL: Alert and oriented x3. Normal speech. Cranial nerves II through XII grossly intact. Strength 5/5 in all extremities. PSYCH: Normal affect, normal mood. SKIN: Warm, dry, normal turgor. No rashes or lesions noted. Course - Re-evaluation Re-evalutation: Vital signs unremarkable, patient nontoxic in appearance. However stool is dark, BUN is elevated, hemoglobin is very low at 5.2. Fortunately patient has not had a recent bloody bowel movement, CBC does not show microcytic appearance, I suspect patient has a slow upper GI bleed. Patient is being transfused, started on Protonix, patient require admission to the hospital for symptomatic anemia, upper GI bleed. I called and spoke with hospitalist Dr. Matute, he requests I speak with general surgery and if they are willing to consult and perform colonoscopy/e ndoscopy then he will admit the patient. I called and spoke with Dr. Black, he states that the surgical team will be available for this and they can be admitted to medicine. I discussed details with patient, patient states appreciation and agreement. - Vital Signs Vital signs: Temp Pulse Resp BP Pulse Ox 98.5 F 58 L 16 145/50 H 95 05/26/20 03:24 05/26/20 03:24 05/26/20 03:24 05/26/20 03:24 05/26/20 04:03 - Laboratory Results Result Diagrams: 05/25/20 17:47 05/25/20 17:47 Laboratory Results Interpreted: 05/25/20 05/25/20 05/25/20 17:47 17:47 17:47 RBC 1.84 L Hgb 5.2 L Hct 15.6 L RDW 15.8 H BUN 50 H Creatinine 3.34 H Est GFR ( Amer) 23 L Est GFR (MDRD) Non-Af 19 L Crossmatch See Detail Critical Laboratory Results Reviewed: Yes Attending or Supervising Physician who Reviewed Labs: GERMAN MILLIGAN IV - Radiology Results Critical Radiology Results Reviewed: No Critical Results - EKG Interpretation by Me Additional EKG results interpreted by me: EKG shows atrial paced rhythm at a rate of 79, QTc of 436, normal axis, no T wave inversions or ST segment changes in consecutive leads Discharge - Discharge Clinical Impression: Upper GI bleed, Symptomatic anemia Condition: Stable Disposition: ADMITTED INPATIENT Admitting Provider: Unit Admitted: [facility]
[2020-05-25] MEDS ORDERED: PANTOPRAZOLE SODIUM 40 MG VIAL IV PRN (22:23)
--- NOTE | 2020-05-25 23:08 | RADIOLOGY REPORT (SQ) ---
AP Portable chest: 05/25/2020 10:06 PM MARZIPAN MOLDER History: 54-year old patient with dyspnea. Comparison: Chest radiograph performed 07/02/2019. Findings: The cardiomediastinal silhouette is normal in size. No pneumothorax is seen. No acute airspace opacities are seen. No discrete pleural effusion is apparent. Nine left dual Impression: No acute airspace opacities are seen.
--- NOTE | 2020-05-26 00:19 | PDOC CONSULTATION ---
Consultation Consult Date: 05/25/20 Provider Consulted: JESSE BUSTAMANTE Consult reason:: GI bleed for possible endoscopy History of Present Illness Admission Date/PCP: 05/25/20 23:17 BENIGNO MELO MD History of Present Illness: CHINA GIBSON is a 54 year old male with type 2 diabetes, chronic kidney disease being followed by Dr. Odom, chronic anemia and hypertension, COPD has been having almost daily black stools for the past several days. Patient is not a very good historian. However, he claims Dr. Odom called him this morning to go to the hospital because of critical kidney function tests. However he claims he passed out or he fell asleep this morning and woke up this afternoon and then brought to ED by his which is come home from work. In the ED noted to have a hemoglobin of 5.2. His vital signs are normal. He claims he has been having off-and-on dark stools for years. He had endoscopy about 7 years ago and swallowed capsule endoscopy but apparently no site of bleeding was noted. I saw a note by Dr. Gr on 12/09/2013 where patient had upper and lower endoscopy and no mention of bleeding. He was noted to have nodular gastritis which was biopsied but negative for H. pylori and also negative for any malignancy or metaplasia. Lower endoscopy also was unremarkable except for mild right sided colitis. On 05/08/20 patient apparently was transfused 2 units of packed cells by Dr. Jimenez. On 05/16/2020 he went to ED with black stools and a hemoglobin of 5.9 and was transfused 2 units of packed cells. After transfusion patient was upset with his and signed AMA. Denies any episode of hematemesis, no abdominal pains. 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 Endocrine Medical History: Reports: Diabetes Mellitus Type 1, Diabetes Mellitus Type 2 Renal/ Medical History: Reports: End Stage Renal Disease GI Medical History: Reports: Gastroesophageal Reflux Disease Musculoskeltal Medical History: Reports: Arthritis Psychiatric Medical History: Reports: Depression Hematology: Reports: Anemia Past Surgical History Past Surgical History: Reports: Cardiac Catheterization, Cholecystectomy, Orthopedic Surgery - Right knee 6 reattachment of second finger right hand, Pacemaker, Other - Cardiac ablation Social History Smoking Status: Unknown if Ever Smoked Frequency of Alcohol Use: None Hx Recreational Drug Use: No Drugs: None Hx Prescription Drug Abuse: No Family History Family History: None, Reviewed & Not Pertinent Parental Family History Reviewed: Yes - Claims that his mother has history of AV malformation of the small bowel Children Family History Reviewed: No Sibling(s) Family History Reviewed.: No Medication/Allergy Home Medications: Gemfibrozil [Lopid] 600 mg PO BID 10/10/14 Lorazepam 1 mg PO Q8 10/10/14 Tramadol HCl 100 mg PO Q8HP PRN 10/10/14 Trazodone HCl [Desyrel 50 mg Tablet] 150 mg PO QHS 10/10/14 Zolpidem Tartrate 10 mg PO HSP PRN 10/10/14 Testosterone Cypionate [Depo-Testosterone] 1 ml IM .QMONTHLY PRN 02/19/15 Duloxetine HCl [Cymbalta] 60 mg PO Q12 09/12/16 Flecainide Acetate [Tambocor 100 mg Tablet] 100 mg PO Q12 09/12/16 Ages [place]-3/Dha/Epa/Fish Oil [Ages [place] 3 500 Softgel] 1 cap PO BID 09/12/16 Verapamil HCl [Verapamil ER] 240 mg PO DAILY 09/12/16 Esomeprazole Magnesium [Nexium] 40 mg PO BID 10/29/17 Hydralazine HCl [Apresoline 25 mg Tablet] 50 mg PO Q12 10/29/17 Losartan Potassium [Cozaar 50 mg Tablet] 100 mg PO DAILY 10/29/17 Tamsulosin HCl [Flomax 0.4 mg Cap.sr] 0.4 mg PO DAILY 10/29/17 Topiramate [Topamax] 50 mg PO Q12 10/29/17 Gabapentin [Neurontin] 800 mg PO QID 10/30/17 Hydroxyzine Pamoate [Vistaril 25 mg Capsule] 75 mg PO QHS 10/30/17 Atorvastatin Calcium [Lipitor 10 mg Tablet] 10 mg PO QHS 07/03/19 Cyanocobalamin (Vitamin B-12) [Vitamin B-12 1000 mcg Tablet] 1,000 mcg PO DAILY 07/03/19 Insulin Aspart [Novolog Insulin (Aspart) 100 unit/mL] 0 unit SUBCUT .SLD SCALE 07/03/19 Insulin NPH Hum/Reg Insulin Hm [Humulin 70/30 Kwikpen] 60 unit SQ BID 07/03/19 Nitroglycerin [Nitrostat 0.4 mg (1/150 Gr) Tabs 25/Bottle] 1 tab SL Q5MP PRN 07/03/19 Acetaminophen [Tylenol 325 mg Tablet] 650 mg PO Q4HP PRN tablet 07/04/19 Acetylcysteine [Mucomist 20% Soln 800 mg/4 mL] 600 mg NEB RTBID #14 vial 0 07/04/19 Fluticasone Propionate [Flonase Nasal Krebs 50 Mcg/Krebs 16 gm] 1 spray NASL Q12 #1 spray.pump 07/04/19 Guaifenesin [Mucinex Sr 600 mg Tablet.sa] 600 mg PO Q12 #14 tablet.sa 07/04/19 Ipratropium/Albuterol Sulfate [Duoneb 3 ml Ampul] 3 ml NEB RTQ6HP PRN #120 vial.neb 07/04/19 Prednisone [Deltasone 20 mg Tablet] 60 mg PO DAILY #15 tablet 07/04/19 Allergies/Adverse Reactions: budesonide [From Pulmicort] Allergy (Verified 05/16/20 22:39) Penicillins Allergy (Verified 05/16/20 22:39) Anaphylaxis Sulfa (Sulfonamide Antibiotics) Allergy (Verified 05/16/20 22:39) itching Review of Systems Constitutional: PRESENT: fatigue - Gets tired easily, other - Denies fever no chills Cardiovascular: PRESENT: chest pain - Had some mild chest pains yesterday Respiratory: PRESENT: other - No cough Gastrointestinal: PRESENT: other - No pains Physical Exam Vital Signs: Temp Pulse Resp BP Pulse Ox 98.2 F 61 14 143/59 H 100 05/25/20 19:46 05/25/20 21:30 05/25/20 20:01 05/25/20 21:01 05/25/20 21:30 Intake & Output 05/24/20 05/25/20 05/26/20 06:59 06:59 06:59 Intake Total 0 Balance 0 Weight 102.512 kg General appearance: PRESENT: no acute distress Head exam: PRESENT: atraumatic Eye exam: PRESENT: conjunctiva pale Mouth exam: PRESENT: moist Neck exam: PRESENT: full ROM Respiratory exam: PRESENT: clear to auscultation jey Cardiovascular exam: PRESENT: RRR Pulses: PRESENT: normal radial pulses Vascular exam: PRESENT: normal capillary refill GI/Abdominal exam: PRESENT: soft - Nontender Extremities exam: PRESENT: full ROM Musculoskeletal exam: PRESENT: full ROM Neurological exam: PRESENT: alert, oriented to person, oriented to place, oriented to time, oriented to situation Psychiatric exam: PRESENT: anxious Skin exam: PRESENT: normal color, warm Results Laboratory Results: 05/25/20 17:47 05/25/20 17:47 05/25/20 05/25/20 05/25/20 17:47 17:47 17:47 WBC 6.9 RBC 1.84 L Hgb 5.2 L Hct 15.6 L MCV 85 MCH 28.4 MCHC 33.4 RDW 15.8 H Plt Count 210 Seg Neutrophils % 70.4 Sodium 142.1 Potassium 4.8 Chloride 106 Carbon Dioxide 25 Anion Gap 11 BUN 50 H Creatinine 3.34 H Est GFR ( Amer) 23 L Glucose 91 Calcium 9.5 Total Bilirubin 0.4 AST 17 Alkaline Phosphatase 104 Total Protein 6.4 Albumin 4.1 Blood Type A POSITIVE Antibody Screen NEGATIVE 05/25/20 17:47 Troponin I < 0.012 Assessment & Plan - Diagnosis (1) Symptomatic anemia Is this a current diagnosis for this admission?: Yes (2) Acute and chronic respiratory failure ([id number]) Qualifiers: Respiratory failure complication: unspecified whether with hypoxia or hypercapnia Qualified Code(s): J96.20 - Acute and chronic respiratory failure, unspecified whether with hypoxia or hypercapnia Is this a current diagnosis for this admission?: Yes (3) Acute on chronic kidney disease, stage 4 Is this a current diagnosis for this admission?: Yes (4) Diabetes Qualifiers: Diabetes mellitus type: type 2 Diabetes mellitus alf insulin use: with ferry terminal agent use Chronic kidney disease stage: stage 4 (severe) Is this a current diagnosis for this admission?: Yes (5) Chronic obstructive pulmonary disease (COPD) Qualifiers: COPD type: unspecified COPD Qualified Code(s): J44.9 - Chronic obstructive pulmonary disease, unspecified Is this a current diagnosis for this admission?: Yes (6) GI bleed Is this a current diagnosis for this admission?: Yes - Time Time Spent: 30 to 50 Minutes - Inpatient Certification Medical Necessity: Need For IV Fluids, Risk of Complication if Not Cared For in Hospital - Plan Summary Plan Summary: 54-year-old male with type 2 diabetes mellitus, COPD, CAD, CKD with history of on and off black stools but in the past month patient claims and since been having daily black stools with light headedness. He also apparently has a chronic anemia and was transfused 2 units of packed cells on 05/08/[address] Jimenez. Patient was also seen in the ED last -2023 dark blood stools and noted to have a hemoglobin of 5.9. He was transfused 2 units of packed cells and patient got upset with his and signed AMA. Came back today because he claimed Dr. Odom called him this morning to go to the hospital because of critical kidney function tests. He did pass out or fell asleep and woke up around 3 that is when his came home from work and subsequently brought by his to the hospital. He was noted to have a hemoglobin of 5.9 but with normal vital signs. Denies any hematemesis. His abdomen is soft and nontender. Impression: Patient has chronic GI bleed and had frequent blood transfusions. He apparently had endoscopies in the past including capsule endoscopy but patient claims the site of bleeding bleeding has not been identified. At present patient looks fairly stable. He needs to be transfused. Discussed with the hospitalist briefly and told him we will be available to do endoscopy if needed. However patient needed to be on bowel prep so we can do an upper and lower endoscopy at one time.
[2020-05-26] MEDS ORDERED: IPRATROPIUM/ALBUTEROL 0.5-2.5 MG/3 ML AMPUL NEB PRN (00:39)
[2020-05-26] MEDS ORDERED: ONDANSETRON HCL INJ/PF 4 MG/2 ML SDV IV PRN (00:39)
[2020-05-26] MEDS ORDERED: DEXTROSE 50%-WATER 25 GM/50 ML DISP.SYRIN IV PRN ×2 (00:49)
[2020-05-26] MEDS ORDERED: GLUCAGON,HUMAN RECOMB 1 MG INJ IM PRN (00:49)
[2020-05-26] MEDS ORDERED: DEXTROSE 40% GEL 15 GM TUBE PO PRN ×2 (00:49)
[2020-05-26 00:50] LABS: INTERNATIONAL RATION (INR) 1.14; PROTHROMBIN TIME 14.8 SEC (11.4-15.4)
--- NOTE | 2020-05-26 02:23 | PDOC H&P ---
History of Present Illness Admission Date/PCP: 05/25/20 23:17 BENIGNO MELO MD Patient complains of: He was sent by his furnace firer because of low hemoglobin. History of Present Illness: CHINA GIBSON is a 54 year old male The patient has history of chronic anemia. He is suffering from chronic intermittent gastrointestinal bleeding now for years. His anemia is multifactorial, partially related to chronic kidney disease stage IV, partially to chronic gastrointestinal blood loss. He has bloody stools intermittently. He does not have any abdominal pain. He is not vomiting. The patient received 2 units of packed red blood cell transfusion in May 08. He came to the emergency department on May 16 with a hemoglobin of 5.9. He received 2 units of packed red blood cell transfusion then he left AGAINST MEDICAL ADVICE. He had blood work with his furnace firer yesterday and he was told to come to the hospital. The patient reports intermittent bloody stool and black stool. He had endoscopy in 2013. No significant abnormality was found. He had capsule endoscopy as well. He did not have any endoscopic evaluation at least for about 3 or 4 years now. The patient is very poor historian and asking more details making him fairly angry therefore I needed to be really careful. Patient is complaining about some poor exercise tolerance and shortness of breath on exertion. He is lightheaded usually when he stands up. Prior to coming to the hospital he may have passed out but it is really hard to find out exactly what happened. Here in the emergency department the patient is hemodynamically stable. He did not have any sign of bleeding. He does not appear to be in any distress. 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 Endocrine Medical History: Reports: Diabetes Mellitus Type 2 Renal/ Medical History: Reports: End Stage Renal Disease GI Medical History: Reports: Gastroesophageal Reflux Disease Musculoskeltal Medical History: Reports: Arthritis Psychiatric Medical History: Reports: Depression Hematology: Reports: Anemia Past Surgical History Past Surgical History: Reports: Cardiac Catheterization, Cholecystectomy, Orthopedic Surgery - Right knee 6 reattachment of second finger right hand, Pacemaker, Other - Cardiac ablation Social History Lives with: Family Smoking Status: Unknown if Ever Smoked Frequency of Alcohol Use: None Hx Recreational Drug Use: No Drugs: None Hx Prescription Drug Abuse: No Family History Family History: None, Reviewed & Not Pertinent Parental Family History Reviewed: Yes Children Family History Reviewed: Yes Sibling(s) Family History Reviewed.: Yes Medication/Allergy Home Medications: Gemfibrozil [Lopid] 600 mg PO BID 10/10/14 Lorazepam 1 mg PO Q8 10/10/14 Tramadol HCl 100 mg PO Q8HP PRN 10/10/14 Trazodone HCl [Desyrel 50 mg Tablet] 150 mg PO QHS 10/10/14 Zolpidem Tartrate 10 mg PO HSP PRN 10/10/14 Testosterone Cypionate [Depo-Testosterone] 1 ml IM .QMONTHLY PRN 02/19/15 Duloxetine HCl [Cymbalta] 60 mg PO Q12 09/12/16 Flecainide Acetate [Tambocor 100 mg Tablet] 100 mg PO Q12 09/12/16 [place]-3/Dha/Epa/Fish Oil [[place] 3 500 Softgel] 1 cap PO BID 09/12/16 Verapamil HCl [Verapamil ER] 240 mg PO DAILY 09/12/16 Esomeprazole Magnesium [Nexium] 40 mg PO BID 10/29/17 Hydralazine HCl [Apresoline 25 mg Tablet] 50 mg PO Q12 10/29/17 Losartan Potassium [Cozaar 50 mg Tablet] 100 mg PO DAILY 10/29/17 Tamsulosin HCl [Flomax 0.4 mg Cap.sr] 0.4 mg PO DAILY 10/29/17 Topiramate [Topamax] 50 mg PO Q12 10/29/17 Gabapentin [Neurontin] 800 mg PO QID 10/30/17 Hydroxyzine Pamoate [Vistaril 25 mg Capsule] 75 mg PO QHS 10/30/17 Atorvastatin Calcium [Lipitor 10 mg Tablet] 10 mg PO QHS 07/03/19 Cyanocobalamin (Vitamin B-12) [Vitamin B-12 1000 mcg Tablet] 1,000 mcg PO DAILY 07/03/19 Insulin Aspart [Novolog Insulin (Aspart) 100 unit/mL] 0 unit SUBCUT .SLD SCALE 07/03/19 Insulin NPH Hum/Reg Insulin Hm [Humulin 70/30 Kwikpen] 60 unit SQ BID 07/03/19 Nitroglycerin [Nitrostat 0.4 mg (1/150 Gr) Tabs 25/Bottle] 1 tab SL Q5MP PRN 07/03/19 Acetaminophen [Tylenol 325 mg Tablet] 650 mg PO Q4HP PRN tablet 07/04/19 Acetylcysteine [Mucomist 20% Soln 800 mg/4 mL] 600 mg NEB RTBID #14 vial 07/04/19 Fluticasone Propionate [Flonase Nasal [place] 50 Mcg/[place] 16 gm] 1 spray NASL Q12 #1 spray.pump 07/04/19 Guaifenesin [Mucinex Sr 600 mg Tablet.sa] 600 mg PO Q12 #14 tablet.sa 07/04/19 Ipratropium/Albuterol Sulfate [Duoneb 3 ml Ampul] 3 ml NEB RTQ6HP PRN #120 vial.neb 07/04/19 Prednisone [Deltasone 20 mg Tablet] 60 mg PO DAILY #15 tablet 07/04/19 Allergies/Adverse Reactions: budesonide [From Pulmicort] Allergy (Verified 05/16/20 22:39) Penicillins Allergy (Verified 05/16/20 22:39) Anaphylaxis Sulfa (Sulfonamide Antibiotics) Allergy (Verified 05/16/20 22:39) itching Review of Systems Constitutional: PRESENT: weakness - Generalized weakness Cardiovascular: PRESENT: dyspnea on exertion. ABSENT: chest pain Gastrointestinal: PRESENT: hematochezia, melena. ABSENT: abdominal pain, coffee ground emesis, dysphagia, nausea, vomiting Genitourinary: ABSENT: dysuria, hematuria Integumentary: ABSENT: rash, wounds Neurological: PRESENT: convulsions - Story of seizurespseudoseizures. Not recently. Hematologic/Lymphatic: PRESENT: other - Anemia. ABSENT: easy bleeding, easy bruising Physical Exam Vital Signs: Temp Pulse Resp BP Pulse Ox 98.1 F 73 16 110/60 100 05/26/20 00:53 05/26/20 00:53 05/26/20 00:53 05/26/20 00:53 05/26/20 00:53 Intake & Output 05/24/20 05/25/20 05/26/20 06:59 06:59 06:59 Intake Total 328 Balance 328 Weight 102.512 kg General appearance: PRESENT: no acute distress, other - He is a very poor historian. He gets angry from too many questions. Head exam: PRESENT: atraumatic Eye exam: PRESENT: conjunctival injection Ear exam: PRESENT: normal external ear exam Mouth exam: PRESENT: moist, tongue midline Neck exam: ABSENT: carotid bruit, JVD, lymphadenopathy, thyromegaly Respiratory exam: PRESENT: clear to auscultation jey. ABSENT: rales, rhonchi, wheezes Cardiovascular exam: PRESENT: RRR. ABSENT: diastolic murmur, rubs, systolic murmur Vascular exam: PRESENT: normal capillary refill GI/Abdominal exam: PRESENT: normal bowel sounds, soft. ABSENT: distended, guarding, mass, organolmegaly, rebound, tenderness Extremities exam: PRESENT: full ROM, other - Cystlike lesion right lower extremity just distal from the knee. Chronic.. ABSENT: calf tenderness Musculoskeletal exam: PRESENT: ambulatory Neurological exam: PRESENT: alert, oriented to person, oriented to place, oriented to time, oriented to situation Psychiatric exam: PRESENT: other - Easily irritable Skin exam: PRESENT: dry, intact, warm. ABSENT: cyanosis, rash Results Laboratory Results: 05/25/20 17:47 05/25/20 17:47 05/25/20 05/25/20 05/25/20 17:47 17:47 17:47 WBC 6.9 RBC 1.84 L Hgb 5.2 L Hct 15.6 L MCV 85 MCH 28.4 MCHC 33.4 RDW 15.8 H Plt Count 210 Seg Neutrophils % 70.4 Sodium 142.1 Potassium 4.8 Chloride 106 Carbon Dioxide 25 Anion Gap 11 BUN 50 H Creatinine 3.34 H Est GFR ( Amer) 23 L Glucose 91 Calcium 9.5 Total Bilirubin 0.4 AST 17 Alkaline Phosphatase 104 Total Protein 6.4 Albumin 4.1 Blood Type A POSITIVE Antibody Screen NEGATIVE 05/25/20 17:47 Troponin I < 0.012 Assessment and Plan - Diagnosis (1) Symptomatic anemia Is this a current diagnosis for this admission?: Yes Plan: Patient has generalized weakness perhaps syncopal episode and lightheadedness secondary to anemia. He is chronically anemic requiring multiple blood transfusions. He has anemia secondary to chronic kidney disease and anemia secondary to gastrointestinal bleeding. He reports bloody stools alternating with black stools. The emergency department provider examined his stool which was not visibly bloody but strongly heme positive. He is receiving blood transfusion. Anemia studies were ordered. If indicated he is going to receive intravenous iron. Surgical consultation was requested for endoscopic evaluation. The patient would benefit from endoscopic evaluation. He seems to be agreeable now. The recommendation was to proceed with bowel preparation and do upper and lower endoscopy at the same time. I started him on clear liquid diet. We can start bowel preparation either Thursday or Thursday depending when the endoscopy is being planned. The patient is going to receive Protonix twice a day. His condition seems to be fairly chronic, it does not seem to be that Protonix drip is needed at this point. Monitor hemoglobin. Additional blood transfusion as needed. DVT prophylaxis with compression device. (2) GI bleed Qualifiers: GI bleed type/associated pathology: unspecified gastrointestinal hemorrhage type Qualified Code(s): K92.2 - Gastrointestinal hemorrhage, unspecified Is this a current diagnosis for this admission?: Yes Plan: It is unclear whether patient has upper or lower gastrointestinal bleed or perhaps both. Upper and lower endoscopies are planned. (3) CKD (chronic kidney disease) stage 4, GFR 15-29 ml/min Is this a current diagnosis for this admission?: Yes Plan: Continue to monitor renal function. (4) Hypertension Qualifiers: Hypertension type: essential hypertension Qualified Code(s): I10 - Essential (primary) hypertension Is this a current diagnosis for this admission?: Yes Plan: He does not know exactly what blood pressure medications this is taking. Once list is available we are going to resume his blood pressure medications, carefully to avoid any hypotension. At present his blood pressure is stable. (5) Diabetes Qualifiers: Diabetes mellitus type: type 2 Diabetes mellitus prison insulin use: with prison use Diabetes mellitus complication status: without complication Qualified Code(s): E11.9 - Type 2 diabetes mellitus without complications; Z79.4 - [facility] (current) use of insulin Is this a current diagnosis for this admission?: Yes Plan: He is going to be on clear liquid diet. He is not sure how is he taking his insulin at home. He uses some form of sliding scale and some long-acting insulin as well. His blood sugar is in the normal range. Monitor blood sugar for now and correction dose insulin. May start long-acting insulin if needed. I would not order it at this point, I am afraid of hypoglycemia. (6) Paroxysmal atrial fibrillation Is this a current diagnosis for this admission?: Yes Plan: He is in sinus rhythm now. Cardiac monitoring. - Plan Summary Summary: The patient was admitted with symptomatic anemia which is multifactorial and chronic intermittent gastrointestinal bleeding to telemetry unit. He is asymptomatic at present. He is going to receive blood transfusion as needed. He is going to receive twice a day proton pump inhibitor. Surgical consultation was requested for endoscopy. Patient will need upper and lower endoscopic evaluation. His home medication list is not known at this point. I tried to review it as much as I can but the patient cannot give much details. Full medication reconciliation is going to be completed in the morning once appropriate list is available. - Time Time Spent with patient: 35 or more minutes Medications reviewed and adjusted accordingly: Yes - Limited review was possible only. The patient has very little knowledge Anticipated Discharge Disposition: Home, Self Care Anticipated Discharge Timeframe: within 72 hours - Inpatient Certification Medical Necessity: Failure to Improve With Outpatient Therapy, Risk of Complic ation if Not Cared For in Hospital
[2020-05-26 06:51] LABS: ABSOLUTE BASOPHILS # (AUTO) 0.1 10^3/uL (0.0-0.2); ABSOLUTE EOSINOPHILS # (AUTO) 0.3 10^3/uL (0.0-0.6); ABSOLUTE LYMPHOCYTES (AUTO) 1.5 10^3/uL (0.5-4.7); ABSOLUTE MONOCYTES (AUTO) 0.6 10^3/uL (0.1-1.4); ABSOLUTE NEUT (AUTO) 3.8 10^3/uL (1.7-8.2); ABSOLUTE RETICS # 0.103 10^6/uL (0.028-0.122); BASOPHILS % (AUTO) 1.9 % (0-2); EOSINOPHILS % (AUTO) 5.2 % (0-6); HEMATOCRIT 19.5 % (37.9-51.0); LYMPHOCYTES % (AUTO) 23.3 % (13-45); MEAN CORPUSCULAR HEMOGLOBIN 29.4 pg (27.0-33.4); MEAN CORPUSCULAR HGB CONC 34.6 g/dL (32.0-36.0); MEAN CORPUSCULAR VOLUME 85 fl (80-97); MONOCYTES % (AUTO) 8.8 % (3-13); PLATELET COUNT 185 10^3/uL (150-450); RED BLOOD COUNT 2.29 10^6/uL (4.35-5.55); RETICULOCYTE COUNT (AUTO) 4.48 % (0.66-2.85); SEGMENTED NEUTROPHILS % (AUTO) 60.8 % (42-78); TOTAL CELLS COUNTED % (AUTO) 100 %; WHITE BLOOD COUNT 6.3 10^3/uL (4.0-10.5)
[2020-05-26 07:09] LABS: ALBUMIN 3.4 g/dL (3.5-5.0); ALKALINE PHOSPHATASE 95 U/L (38-126); ANION GAP 8 (5-19); ASPARTATE AMINO TRANSFERASE 19 U/L (17-59); BILIRUBIN,DIRECT 0.3 mg/dL (0.0-0.4); BILIRUBIN,TOTAL 0.7 mg/dL (0.2-1.3); BLOOD UREA NITROGEN 45 mg/dL (7-20); CARBON DIOXIDE 23 mmol/L (22-30); CHLORIDE 110 mmol/L (98-107); GLUCOSE 83 mg/dL (75-110); HEMOGLOBIN 6.7 g/dL (13.5-17.0); IRON(TIBC) 81.4 ug/dL (49-181); POTASSIUM 4.7 mmol/L (3.6-5.0); TOTAL PROTEIN 5.6 g/dL (6.3-8.2)
[2020-05-26 08:17] LABS: FOLATE 4.73 ng/mL (>2.76)
[2020-05-26] MEDS: PANTOPRAZOLE SODIUM 40 MG VIAL IV SCH ×2 (09:54→21:15)
[2020-05-26] MEDS: INSULIN LISPRO 100 UNIT/ML 3 ML VIAL SUBCUT SCH ×4 (09:55→21:16)
[2020-05-26] MEDS ORDERED: NORMAL SALINE 250 ML IV PRN ×2 (10:22)
[2020-05-26] MEDS ORDERED: ZOLPIDEM TARTRATE 10 MG PO PRN (14:51)
[2020-05-26] MEDS ORDERED: TRAZODONE HCL 50 MG TABLET PO PRN (14:51)
--- NOTE | 2020-05-26 14:58 | EKG REPORT ---
SEVERITY:- ABNORMAL ECG - SINUS RHTHM WITH APCs, ATRIAL-PACING ARTIFACTS : Confirmed by: Karina Jones 26-May-2020 14:57:59
[2020-05-26] MEDS ORDERED: ZOLPIDEM TARTRATE 5 MG TABLET PO PRN (15:03)
--- NOTE | 2020-05-26 15:08 | PDOC PROGRESS REPORT ---
Subjective Date:: 05/26/20 Subjective:: CHINA GIBSON is a 54 year old male The patient has history of chronic anemia. He is suffering from chronic intermittent gastrointestinal bleeding now for years. His anemia is multifactorial, partially related to chronic kidney disease stage IV, partially to chronic gastrointestinal blood loss. He has bloody stools intermittently. He does not have any abdominal pain. He is not vomiting. The patient received 2 units of packed red blood cell transfusion in May 08. He came to the emergency department on May 16 with a hemoglobin of 5.9. He received 2 units of packed red blood cell transfusion then he left AGAINST MEDICAL ADVICE. He had blood work with his die tester yesterday and he was told to come to the hospital. The patient reports intermittent bloody stool and black stool. He had endoscopy in 2013. No significant abnormality was found. He had capsule endoscopy as well. He did not have any endoscopic evaluation at least for about 3 or 4 years now. The patient is very poor historian and asking more details making him fairly angry therefore I needed to be really careful. Patient is complaining about some poor exercise tolerance and shortness of breath on exertion. He is lightheaded usually when he stands up. Prior to coming to the hospital he may have passed out but it is really hard to find out exactly what happened. Here in the emergency department the patient is hemodynamically stable. He did not have any sign of bleeding. He does not appear to be in any distress. D2 Hospital stay. Patient was seen and examined at bedside. He has not had any bowel movement since thursday he said. He denied any abdominal pain, hemateme sis, nausea or vomiting. I was able to speak to Dr. Demarco who plans to do a colonoscopy tomorrow. Repeat hgb post 2 u PRBC was 6.7, so 1 more unit was ordered. Reason For Visit: GI BLEED,ANEMIA Physical Exam Vital Signs: Temp Pulse Resp BP Pulse Ox 98 F 58 L 18 133/51 H 100 05/26/20 13:00 05/26/20 13:00 05/26/20 13:00 05/26/20 13:00 05/26/20 13:00 Intake & Output 05/25/20 05/26/20 05/27/20 06:59 06:59 06:59 Intake Total 878 240 Balance 878 240 Weight 109.7 kg General appearance: PRESENT: no acute distress, cooperative, obese Head exam: PRESENT: atraumatic, normocephalic Eye exam: PRESENT: EOMI, PERRLA Mouth exam: PRESENT: moist Neck exam: PRESENT: full ROM Respiratory exam: PRESENT: clear to auscultation jey, symmetrical, unlabored Cardiovascular exam: PRESENT: RRR, +S1, +S2 Pulses: PRESENT: +2 pedal pulses bilateral GI/Abdominal exam: PRESENT: normal bowel sounds, soft. ABSENT: rebound, tenderness Extremities exam: PRESENT: full ROM Musculoskeletal exam: PRESENT: full ROM Neurological exam: PRESENT: alert, awake, oriented to person, oriented to place, oriented to time, oriented to situation Psychiatric exam: PRESENT: normal mood Skin exam: PRESENT: normal color Results Laboratory Results: 05/26/20 06:14 05/26/20 06:14 05/25/20 05/25/20 05/25/20 17:47 17:47 17:47 WBC 6.9 RBC 1.84 L Hgb 5.2 L Hct 15.6 L MCV 85 MCH 28.4 MCHC 33.4 RDW 15.8 H Plt Count 210 Seg Neutrophils % 70.4 Retic Count (auto) Sodium 142.1 Potassium 4.8 Chloride 106 Carbon Dioxide 25 Anion Gap 11 BUN 50 H Creatinine 3.34 H Est GFR ( Amer) 23 L Glucose 91 Calcium 9.5 Iron TIBC % Saturation Ferritin Total Bilirubin 0.4 AST 17 Alkaline Phosphatase 104 Total Protein 6.4 Albumin 4.1 Vitamin B12 Folate TSH Blood Type A POSITIVE Antibody Screen NEGATIVE 05/26/20 05/26/20 05/26/20 06:14 06:14 06:14 WBC 6.3 RBC 2.29 L Hgb 6.7 L Hct 19.5 L MCV 85 MCH 29.4 MCHC 34.6 RDW 15.0 H Plt Count 185 Seg Neutrophils % 60.8 Retic Count (auto) 4.48 H Sodium 141.3 Potassium 4.7 Chloride 110 H Carbon Dioxide 23 Anion Gap 8 BUN 45 H Creatinine 2.81 H Est GFR ( Amer) 28 L Glucose 83 Calcium 9.0 Iron 81.4 TIBC 408 % Saturation 20 Ferritin 12.50 L Total Bilirubin 0.7 AST 19 Alkaline Phosphatase 95 Total Protein 5.6 L Albumin 3.4 L Vitamin B12 602.0 Folate 4.73 TSH 1.76 Blood Type Antibody Screen 05/25/20 17:47 Troponin I < 0.012 Assessment and Plan - Diagnosis (1) Symptomatic anemia Is this a current diagnosis for this admission?: Yes Plan: Patient has generalized weakness perhaps syncopal episode and lightheadedness secondary to anemia. - Hgb 5.2>6.7 after 2 units PRBC - +ve occult blood - Iron studies pending - s/p 1 U pRBC - on clear liquid diet. For planned colonoscopy - Surgery following - on protonix - monitor daily CBC DVT prophylaxis with compression device. (2) Chronic GI bleeding Is this a current diagnosis for this admission?: Yes Plan: - Patient has a history of chronic GI bleed and has undergone EGD and colonoscopy. Last EGD/colonoscopy on file September [address] Gr showed rectal polyp that was removed via snare polypectomy. Internal hemorrhoids. Gastritis status post biopsy - per history he has also undergone capsule endoscopy before but still unable to find a source of bleeding - being followed by Heme-onc - iron studies pending (3) Diabetes Qualifiers: Diabetes mellitus type: type 2 Diabetes mellitus terminal carman insulin use: with long-term use Diabetes mellitus complication status: without complication Qualified Code(s): E11.9 - Type 2 diabetes mellitus without complications; Z79.4 - correction (current) use of insulin Is this a current diagnosis for this admission?: Yes Plan: - on clear liquid diet. - currently just on sliding scale - will resume 70/30 after colonoscopy (4) Paroxysmal atrial fibrillation Is this a current diagnosis for this admission?: Yes Plan: He is in sinus rhythm now. - on fleicanide resumed - not on anticoagulation I assume because of his chronic GI bleeding Cardiac monitoring. (5) Acute and chronic respiratory failure ([id number]) Qualifiers: Respiratory failure complication: unspecified whether with hypoxia or hypercapnia Qualified Code(s): J96.20 - Acute and chronic respiratory failure, unspecified whether with hypoxia or hypercapnia Is this a current diagnosis for this admission?: Yes Plan: - due to COPD - on 4L of NC at baseline - does not seem to be on any inhaler per medrec - duoneb PRN (6) Chronic obstructive pulmonary disease (COPD) Qualifiers: COPD type: unspecified COPD Qualified Code(s): J44.9 - Chronic obstructive pulmonary disease, unspecified Is this a current diagnosis for this admission?: Yes Plan: - on 4L nasal cannula at home - not on any inhalers - continue duoneb PRN (7) HTN (hypertension) Qualifiers: Hypertension type: essential hypertension Qualified Code(s): I10 - Essential (primary) hypertension Is this a current diagnosis for this admission?: Yes Plan: - on losartan and verapamil (8) CKD (chronic kidney disease) stage 4, GFR 15-29 ml/min Is this a current diagnosis for this admission?: Yes Plan: Continue to monitor renal function. (9) Polypharmacy Is this a current diagnosis for this admission?: Yes - Plan Summary Summary: The patient was admitted with symptomatic anemia which is multifactorial and chronic intermittent gastrointestinal bleeding to telemetry unit. He is asymptomatic at present. He is going to receive blood transfusion as needed. He is going to receive twice a day proton pump inhibitor. Surgical consultation was requested for endoscopy. Patient will need upper and lower endoscopic evaluation. His home medication list is not known at this point. I tried to review it as much as I can but the patient cannot give much details. Full medication reconciliation is going to be completed in the morning once appropriate list is available. - Time Time Spent with patient: 25-34 minutes Medications reviewed and adjusted accordingly: Yes Anticipated Discharge Disposition: Home, Self Care Anticipated Discharge Timeframe: TBD
[2020-05-26] MEDS ORDERED: PEG 3350/NA SULF,BICARB,CL/KCL 4000 ML PO ONE (16:00)
--- NOTE | 2020-05-26 16:20 | PDOC PROGRESS REPORT ---
Subjective Date:: 05/26/20 Reason For Visit: GI BLEED,ANEMIA Patient having no more bleeding. Receiving third unit of packed cells. We will start bowel prep for colonoscopy planned for tomorrow. Patient has had extensi ve GI work-up including upper and lower endoscopy, capsule endoscopy etc. Patient states that the etiology of bleeding never identified Physical Exam Vital Signs: Temp Pulse Resp BP Pulse Ox 97.7 F 61 17 131/54 H 98 05/26/20 14:18 05/26/20 14:18 05/26/20 14:18 05/26/20 14:18 05/26/20 14:18 Intake & Output 05/25/20 05/26/20 05/27/20 06:59 06:59 06:59 Intake Total 878 570 Balance 878 570 Weight 109.7 kg General appearance: PRESENT: no acute distress GI/Abdominal exam: PRESENT: other - Soft, nontender, no peritoneal signs, no rigidity Results Laboratory Results: 05/26/20 06:14 05/26/20 06:14 05/25/20 05/25/20 05/25/20 17:47 17:47 17:47 WBC 6.9 RBC 1.84 L Hgb 5.2 L Hct 15.6 L MCV 85 MCH 28.4 MCHC 33.4 RDW 15.8 H Plt Count 210 Seg Neutrophils % 70.4 Retic Count (auto) Sodium 142.1 Potassium 4.8 Chloride 106 Carbon Dioxide 25 Anion Gap 11 BUN 50 H Creatinine 3.34 H Est GFR ( Amer) 23 L Glucose 91 Calcium 9.5 Iron TIBC % Saturation Ferritin Total Bilirubin 0.4 AST 17 Alkaline Phosphatase 104 Total Protein 6.4 Albumin 4.1 Vitamin B12 Folate TSH Blood Type A POSITIVE Antibody Screen NEGATIVE 05/26/20 05/26/20 05/26/20 06:14 06:14 06:14 WBC 6.3 RBC 2.29 L Hgb 6.7 L Hct 19.5 L MCV 85 MCH 29.4 MCHC 34.6 RDW 15.0 H Plt Count 185 Seg Neutrophils % 60.8 Retic Count (auto) 4.48 H Sodium 141.3 Potassium 4.7 Chloride 110 H Carbon Dioxide 23 Anion Gap 8 BUN 45 H Creatinine 2.81 H Est GFR ( Amer) 28 L Glucose 83 Calcium 9.0 Iron 81.4 TIBC 408 % Saturation 20 Ferritin 12.50 L Total Bilirubin 0.7 AST 19 Alkaline Phosphatase 95 Total Protein 5.6 L Albumin 3.4 L Vitamin B12 602.0 Folate 4.73 TSH 1.76 Blood Type Antibody Screen 05/25/20 17:47 Troponin I < 0.012 Assessment & Plan - Diagnosis (1) Chronic GI bleeding Is this a current diagnosis for this admission?: Yes Plan: Impression: Acute GI bleed superimposed on chronic anemia, etiology undetermined. Hemodynamically stable, bleeding currently abated, receiving blood transfusions for initial hemoglobin of 5.2 Plan: 1. We will set patient up for upper and lower endoscopy, possible biopsy, possible polypectomy., Dr. Demarco, LMAC anesthesia 2. Patient Covid status negative. (2) CKD (chronic kidney disease) stage 4, GFR 15-29 ml/min Is this a current diagnosis for this admission?: Yes (3) Paroxysmal atrial fibrillation Is this a current diagnosis for this admission?: Yes (4) Diabetes Qualifiers: Diabetes mellitus type: type 2 Diabetes mellitus longterm insulin use: wit h longterm use Chronic kidney disease stage: stage 4 (severe) Is this a current diagnosis for this admission?: Yes (5) Polypharmacy Is this a current diagnosis for this admission?: Yes (6) Tobacco dependence Is this a current diagnosis for this admission?: Yes - Time Anticipated Discharge Disposition: Home, Self Care Anticipated Discharge Timeframe: within 48 hours Time Spent: 30 to 50 Minutes
[2020-05-26] MEDS: GABAPENTIN 400 MG CAPSULE PO SCH ×2 (17:16→23:48)
[2020-05-26] MEDS ORDERED: (PENDING PHARMACY ID) (Gabapentin [Neurontin] 800 MG Tablet) PO SCH (18:00)
[2020-05-26 19:23] LABS: ABSOLUTE BASOPHILS # (AUTO) 0.1 10^3/uL (0.0-0.2); ABSOLUTE EOSINOPHILS # (AUTO) 0.3 10^3/uL (0.0-0.6); ABSOLUTE MONOCYTES (AUTO) 0.6 10^3/uL (0.1-1.4); ABSOLUTE NEUT (AUTO) 4.4 10^3/uL (1.7-8.2); BASOPHILS % (AUTO) 1.4 % (0-2); HEMATOCRIT 23.3 % (37.9-51.0); LYMPHOCYTES % (AUTO) 15.9 % (13-45); MEAN CORPUSCULAR HGB CONC 33.3 g/dL (32.0-36.0); MEAN CORPUSCULAR VOLUME 84 fl (80-97); PLATELET COUNT 207 10^3/uL (150-450); RED BLOOD COUNT 2.77 10^6/uL (4.35-5.55); RED CELL DISTRIBUTION WIDTH 14.9 % (11.5-14.0); SEGMENTED NEUTROPHILS % (AUTO) 68.7 % (42-78); TOTAL CELLS COUNTED % (AUTO) 100 %; WHITE BLOOD COUNT 6.5 10^3/uL (4.0-10.5)
[2020-05-26 19:28] LABS: HEMOGLOBIN 7.8 g/dL (13.5-17.0)
[2020-05-26] MEDS: TOPIRAMATE 25 MG TABLET PO SCH (21:15)
[2020-05-26] MEDS: FLECAINIDE ACETATE 100 MG TABLET PO SCH (21:15)
[2020-05-26] MEDS ORDERED: TOPIRAMATE 50 MG PO SCH (22:00)
[2020-05-27 05:27] LABS: ABSOLUTE BASOPHILS # (AUTO) 0.1 10^3/uL (0.0-0.2); ABSOLUTE EOSINOPHILS # (AUTO) 0.3 10^3/uL (0.0-0.6); ABSOLUTE LYMPHOCYTES (AUTO) 1.2 10^3/uL (0.5-4.7); ABSOLUTE MONOCYTES (AUTO) 0.5 10^3/uL (0.1-1.4); ABSOLUTE NEUT (AUTO) 3.9 10^3/uL (1.7-8.2); BASOPHILS % (AUTO) 1.1 % (0-2); EOSINOPHILS % (AUTO) 5.1 % (0-6); HEMATOCRIT 22.6 % (37.9-51.0); LYMPHOCYTES % (AUTO) 20.5 % (13-45); MEAN CORPUSCULAR HEMOGLOBIN 28.2 pg (27.0-33.4); MEAN CORPUSCULAR HGB CONC 33.5 g/dL (32.0-36.0); MEAN CORPUSCULAR VOLUME 84 fl (80-97); MONOCYTES % (AUTO) 8.9 % (3-13); PLATELET COUNT 195 10^3/uL (150-450); RED BLOOD COUNT 2.68 10^6/uL (4.35-5.55); RED CELL DISTRIBUTION WIDTH 15.3 % (11.5-14.0); SEGMENTED NEUTROPHILS % (AUTO) 64.4 % (42-78); TOTAL CELLS COUNTED % (AUTO) 100 %; WHITE BLOOD COUNT 6.1 10^3/uL (4.0-10.5)
[2020-05-27 05:46] LABS: HEMOGLOBIN 7.5 g/dL (13.5-17.0)
[2020-05-27 05:51] LABS: ALBUMIN 3.4 g/dL (3.5-5.0); ALKALINE PHOSPHATASE 91 U/L (38-126); ANION GAP 11 (5-19); ASPARTATE AMINO TRANSFERASE 20 U/L (17-59); BILIRUBIN,DIRECT 0.2 mg/dL (0.0-0.4); BILIRUBIN,TOTAL 0.6 mg/dL (0.2-1.3); BLOOD UREA NITROGEN 30 mg/dL (7-20); CALCIUM 8.8 mg/dL (8.4-10.2); CARBON DIOXIDE 22 mmol/L (22-30); CHLORIDE 109 mmol/L (98-107); GLUCOSE 119 mg/dL (75-110); POTASSIUM 3.8 mmol/L (3.6-5.0); TOTAL PROTEIN 5.6 g/dL (6.3-8.2)
[2020-05-27] MEDS: GABAPENTIN 400 MG CAPSULE PO SCH ×4 (06:05→23:03)
[2020-05-27] MEDS: INSULIN LISPRO 100 UNIT/ML 3 ML VIAL SUBCUT SCH ×4 (08:11→22:26)
[2020-05-27] MEDS ORDERED: NALOXONE HCL INJ/PF 0.4 MG/1 ML SDV ONE (08:55)
[2020-05-27] MEDS ORDERED: DIPHENHYDRAMINE HCL 50 MG/ML VIAL ONE (08:55)
[2020-05-27] MEDS ORDERED: ONDANSETRON HCL INJ/PF 4 MG/2 ML SDV ONE (08:55)
[2020-05-27] MEDS ORDERED: FENTANYL CITRATE INJ/PF 100 MCG/2 ML AMPUL ONE (08:55)
[2020-05-27] MEDS ORDERED: FLUMAZENIL INJ 0.5 MG/5 ML VIAL ONE (08:56)
[2020-05-27] MEDS ORDERED: EPINEPHRINE INJ 1 MG/10 ML DISP.SYRIN ONE ×2 (08:56→11:53)
[2020-05-27] MEDS ORDERED: GLUCAGON,HUMAN RECOMB 1 MG INJ ONE (08:56)
[2020-05-27] MEDS ORDERED: MIDAZOLAM 2 MG/2 ML INJ ONE (08:56)
[2020-05-27] MEDS: BUMETANIDE 1 MG TABLET PO SCH (09:16)
[2020-05-27] MEDS: PANTOPRAZOLE SODIUM 40 MG VIAL IV SCH ×2 (09:17→22:19)
[2020-05-27] MEDS: VERAPAMIL HCL 240 MG TABLET.SA PO SCH (09:17)
[2020-05-27] MEDS: FLECAINIDE ACETATE 100 MG TABLET PO SCH ×2 (09:17→22:21)
[2020-05-27] MEDS: METOLAZONE 2.5 MG TABLET PO SCH (09:17)
[2020-05-27] MEDS: TOPIRAMATE 25 MG TABLET PO SCH ×2 (09:17→22:21)
[2020-05-27] MEDS: LOSARTAN POTASSIUM 50 MG TABLET PO SCH (09:17)
[2020-05-27] MEDS: VENLAFAXINE HCL 75 MG CAP.SR.24H PO SCH (09:17)
[2020-05-27] MEDS ORDERED: BUMETANIDE 2 MG PO SCH (10:00)
--- NOTE | 2020-05-27 14:01 | PDOC PROGRESS REPORT ---
Subjective Date:: 05/27/20 Subjective:: CHINA GIBSON is a 54 year old male The patient has history of chronic anemia. He is suffering from chronic intermittent gastrointestinal bleeding now for years. His anemia is multifactorial, partially related to chronic kidney disease stage IV, partially to chronic gastrointestinal blood loss. He has bloody stools intermittently. He does not have any abdominal pain. He is not vomiting. The patient received 2 units of packed red blood cell transfusion in May 08. He came to the emergency department on May 16 with a hemoglobin of 5.9. He received 2 units of packed red blood cell transfusion then he left AGAINST MEDICAL ADVICE. 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 The patient reports intermittent bloody stool and black stool. He had endoscopy in 2013. No significant abnormality was found. He had capsule endoscopy as well. He did not have any endoscopic evaluation at least for about 3 or 4 years now. The patient is very poor historian and asking more details making him fairly angry therefore I needed to be really careful. Patient is complaining about some poor exercise tolerance and shortness of breath on exertion. He is lightheaded usually when he stands up. Prior to coming to the hospital he may have passed out but it is really hard to find out exactly what happened. Here in the emergency department the patient is hemodynamically stable. He did not have any sign of bleeding. He does not appear to be in any distress. D2 Hospital stay. Patient was seen and examined at bedside. He has not had any bowel movement since thursday he said. He denied any abdominal pain, hemateme sis, nausea or vomiting. I was able to speak to Dr. Demarco who plans to do a colonoscopy tomorrow. Repeat hgb post 2 u PRBC was 6.7, so 1 more unit was ordered. D3 Hospital stay. Patient was seen and examined at bedside. He stated that he had episodes of melena when he started drinking golytely. The melena eventually cleared up. He is scheduled to undergo both EGD and Colonoscopy today. repeat Hgb post 3 unit PRBC was 7.5. Reason For Visit: GI BLEED,ANEMIA Physical Exam Vital Signs: Temp Pulse Resp BP Pulse Ox 98.4 F 63 20 141/69 H 100 05/27/20 08:42 05/27/20 08:42 05/27/20 08:42 05/27/20 08:42 05/27/20 08:42 Intake & Output 05/26/20 05/27/20 05/28/20 06:59 06:59 06:59 Intake Total 878 2860 Balance 878 2860 Weight 109.7 kg 108.2 kg General appearance: PRESENT: no acute distress, cooperative Head exam: PRESENT: atraumatic, normocephalic Eye exam: PRESENT: EOMI, PERRLA Mouth exam: PRESENT: moist Neck exam: PRESENT: full ROM Respiratory exam: PRESENT: clear to auscultation jey, symmetrical, unlabored Cardiovascular exam: PRESENT: RRR, +S1, +S2 Pulses: PRESENT: +2 pedal pulses bilateral GI/Abdominal exam: PRESENT: normal bowel sounds, soft. ABSENT: rebound, tenderness Extremities exam: PRESENT: full ROM Musculoskeletal exam: PRESENT: full ROM Neurological exam: PRESENT: alert, awake, oriented to person, oriented to place, oriented to time, oriented to situation Psychiatric exam: PRESENT: normal mood Skin exam: PRESENT: normal color Results Laboratory Results: 05/27/20 04:59 05/27/20 04:59 05/26/20 05/27/20 05/27/20 19:07 04:59 04:59 WBC 6.5 6.1 RBC 2.77 L 2.68 L Hgb 7.8 L 7.5 L Hct 23.3 L 22.6 L MCV 84 84 MCH 28.0 28.2 MCHC 33.3 33.5 RDW 14.9 H 15.3 H Plt Count 207 195 Seg Neutrophils % 68.7 64.4 Sodium 141.7 Potassium 3.8 Chloride 109 H Carbon Dioxide 22 Anion Gap 11 BUN 30 H Creatinine 2.31 H Est GFR ( Amer) 36 L Glucose 119 H Calcium 8.8 Total Bilirubin 0.6 AST 20 Alkaline Phosphatase 91 Total Protein 5.6 L Albumin 3.4 L TSH 05/27/20 04:59 WBC RBC Hgb Hct MCV MCH MCHC RDW Plt Count Seg Neutrophils % Sodium Potassium Chloride Carbon Dioxide Anion Gap BUN Creatinine Est GFR ( Amer) Glucose Calcium Total Bilirubin AST Alkaline Phosphatase Total Protein Albumin TSH 2.04 05/25/20 17:47 Troponin I < 0.012 Assessment and Plan - Diagnosis (1) Symptomatic anemia Is this a current diagnosis for this admission?: Yes Plan: Patient has generalized weakness perhaps syncopal episode and lightheadedness secondary to anemia. - Hgb 5.2>6.7 after 2 units PRBC - +ve occult blood - Iron studies low ferritin, iron 81.4 which is on the low side - s/p 1 U pRBC - Surgery following plan for colonoscopy and egd - on protonix - monitor daily CBC DVT prophylaxis with compression device. (2) Chronic GI bleeding Is this a current diagnosis for this admission?: Yes Plan: - Patient has a history of chronic GI bleed and has undergone EGD and colonoscopy. Last EGD/colonoscopy on file September [address] Gr showed rectal polyp that was removed via snare polypectomy. Internal hemorrhoids. 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 - currently just on sliding scale - will resume 70/30 after colonoscopy (4) Paroxysmal atrial fibrillation Is this a current diagnosis for this admission?: Yes Plan: He is in sinus rhythm now. - on fleicanide resumed - not on anticoagulation I assume because of his chronic GI bleeding Cardiac monitoring. (5) Acute and chronic respiratory failure ([id number]) Qualifiers: Respiratory failure complication: unspecified whether with hypoxia or hypercapnia Qualified Code(s): J96.20 - Acute and chronic respiratory failure, unspecified whether with hypoxia or hypercapnia Is this a current diagnosis for this admission?: Yes Plan: - due to COPD - on 4L of NC at baseline - does not seem to be on any inhaler per medrec - duoneb PRN (6) Chronic obstructive pulmonary disease (COPD) Qualifiers: COPD type: unspecified COPD Qualified Code(s): J44.9 - Chronic obstructive pulmonary disease, unspecified Is this a current diagnosis for this admission?: Yes Plan: - on 4L nasal cannula at home - not on any inhalers - continue duoneb PRN (7) HTN (hypertension) Qualifiers: Hypertension type: essential hypertension Qualified Code(s): I10 - Essential (primary) hypertension Is this a current diagnosis for this admission?: Yes Plan: - on losartan and verapamil (8) CKD (chronic kidney disease) stage 4, GFR 15-29 ml/min Is this a current diagnosis for this admission?: Yes Plan: Continue to monitor renal function. (9) Polypharmacy Is this a current diagnosis for this admission?: Yes - Time Time Spent with patient: 15-24 minutes Medications reviewed and adjusted accordingly: Yes Anticipated Discharge Disposition: Home, Self Care Anticipated Discharge Timeframe: tbd
[2020-05-27] MEDS ORDERED: PROPOFOL INJ 200 MG/20 ML VIAL IV ONE (14:45)
--- NOTE | 2020-05-27 15:46 | Operative Report ---
Operative Report DATE OF SURGERY: 05/27/20 PREOPERATIVE DIAGNOSIS: 1. Gastrointestinal bleed of unclear etiology. 2. An emia. 3. Atrial fibrillation POSTOPERATIVE DIAGNOSIS: Same with no upper or lower endoscopic evidence of clot, bleeding or significant pathology OPERATION: 1. Esophagogastroduodenoscopy. 2. Total colonoscopy to cecum SURGEON: CARISSA MAXWELL ANESTHESIA: LMAC TISSUE REMOVED OR ALTERED: None COMPLICATIONS: None ESTIMATED BLOOD LOSS: None INTRAOPERATIVE FINDINGS: See below PROCEDURE: Patient was taken to the preoperative area to the main operating room where LMAC anesthesia was induced. He was placed in semirecumbent position, oral mouthpiece inserted, and instrumentation set up for upper endoscopy. Surgical plan and surgical timeout were conducted. The flexible upper endoscope was advanced to the oropharynx, down the esophagus through the stomach and into the first and second portion of the duodenum. The study was well-tolerated by the patient. There was no evidence of tumor stricture bleeding or polyp. There was no evidence of clot. Complete vis ualization of the pyloric channel was achieved. The stomach was visualized in its entirety. Findings significant only for low-grade chronic gastritis. No biopsy performed. Scope was reflux in the stomach and a good look at the GE junction from the gastric side was obtained. No significant hiatal hernia. Scope was withdrawn through the GE junction and no pathology seen at the Z-line. Scope was brought back through the length of the esophagus. Again no evidence of pathology noted. Scope withdrawn to the patient's oropharynx tolerated the procedure well. The patient was placed in the left lateral decubitus position with knees to chest. A perianal examination was performed. There was no visible or palpable anorectal pathology. Sphincter tone was felt to be normal. The flexible adult colonoscope was advanced through the anal rectal canal, all the way to the cecum. Visualization of the cecum was achieved by demonstration of the ileocecal valve, the appendiceal orifice and transillumination of the anterior abdominal wall. This was an excellent study on the well-prepped bowel; there was a residual amount of loose muddy stool which aspirated easily. The colonoscope was withdrawn slowly and methodically checked and the mucosa carefully. There was no evidence of tumor, stricture, bleeding or polyp. There was no evidence of diverticuloses. The scope was slowly withdrawn through the anal rectal canal. Complete visualization of the rectum was achieved with photodocumentation. The scope was withdrawn to the patient's anus. The patient tolerated the procedure well and was taken to the recovery area in stable condition. Per surveillance guidelines, patient will be an appropriate candidate for follow-up colonoscopy in [10] years.
[2020-05-27] MEDS ORDERED: LORAZEPAM 0.5 MG TABLET PO ONE (19:45)
[2020-05-28] MEDS: GABAPENTIN 400 MG CAPSULE PO SCH (05:33)
[2020-05-28] MEDS: INSULIN LISPRO 100 UNIT/ML 3 ML VIAL SUBCUT SCH (07:33)
[2020-05-28 09:10] LABS: ABSOLUTE BASOPHILS # (AUTO) 0.1 10^3/uL (0.0-0.2); ABSOLUTE EOSINOPHILS # (AUTO) 0.3 10^3/uL (0.0-0.6); ABSOLUTE LYMPHOCYTES (AUTO) 1.1 10^3/uL (0.5-4.7); ABSOLUTE MONOCYTES (AUTO) 0.8 10^3/uL (0.1-1.4); ABSOLUTE NEUT (AUTO) 5.1 10^3/uL (1.7-8.2); BASOPHILS % (AUTO) 0.9 % (0-2); EOSINOPHILS % (AUTO) 4.6 % (0-6); HEMATOCRIT 25.4 % (37.9-51.0); HEMOGLOBIN 8.5 g/dL (13.5-17.0); LYMPHOCYTES % (AUTO) 15.4 % (13-45); MEAN CORPUSCULAR HEMOGLOBIN 28.3 pg (27.0-33.4); MEAN CORPUSCULAR HGB CONC 33.4 g/dL (32.0-36.0); MEAN CORPUSCULAR VOLUME 85 fl (80-97); MONOCYTES % (AUTO) 10.4 % (3-13); PLATELET COUNT 226 10^3/uL (150-450); RED CELL DISTRIBUTION WIDTH 15.5 % (11.5-14.0); SEGMENTED NEUTROPHILS % (AUTO) 68.7 % (42-78); TOTAL CELLS COUNTED % (AUTO) 100 %; WHITE BLOOD COUNT 7.4 10^3/uL (4.0-10.5)
[2020-05-28 09:37] LABS: ALKALINE PHOSPHATASE 94 U/L (38-126); ANION GAP 11 (5-19); ASPARTATE AMINO TRANSFERASE 36 U/L (17-59); BILIRUBIN,DIRECT 0.2 mg/dL (0.0-0.4); BILIRUBIN,TOTAL 0.5 mg/dL (0.2-1.3); BLOOD UREA NITROGEN 26 mg/dL (7-20); CALCIUM 9.3 mg/dL (8.4-10.2); CARBON DIOXIDE 19 mmol/L (22-30); CHLORIDE 113 mmol/L (98-107); GLUCOSE 103 mg/dL (75-110); POTASSIUM 3.9 mmol/L (3.6-5.0); TOTAL PROTEIN 5.9 g/dL (6.3-8.2)
[2020-05-28] MEDS: BUMETANIDE 1 MG TABLET PO SCH (09:41)
[2020-05-28] MEDS: VERAPAMIL HCL 240 MG TABLET.SA PO SCH (09:41)
[2020-05-28] MEDS: PANTOPRAZOLE SODIUM 40 MG VIAL IV SCH (09:42)
[2020-05-28] MEDS: VENLAFAXINE HCL 75 MG CAP.SR.24H PO SCH (09:42)
[2020-05-28] MEDS: TOPIRAMATE 25 MG TABLET PO SCH (09:42)
[2020-05-28] MEDS: METOLAZONE 2.5 MG TABLET PO SCH (09:42)
[2020-05-28] MEDS: LOSARTAN POTASSIUM 50 MG TABLET PO SCH (09:42)
[2020-05-28] MEDS: FLECAINIDE ACETATE 100 MG TABLET PO SCH (09:42)
[2020-05-28 09:51] LABS: ALBUMIN 3.7 g/dL (3.5-5.0)
[2020-05-28 10:17] VITALS: BP 141/69
--- NOTE | 2020-05-28 20:05 | PDOC DISCHARGE SUMMARY ---
Impression - Admit/DC Date/PCP Admission Date/Primary Care Provider: 05/25/20 23:17 BENIGNO MELO MD Discharge Date: 05/28/20 - Discharge Diagnosis (1) Symptomatic anemia Is this a current diagnosis for this admission?: Yes (2) Chronic GI bleeding Is this a current diagnosis for this admission?: Yes (3) Diabetes Is this a current diagnosis for this admission?: Yes (4) Paroxysmal atrial fibrillation Is this a current diagnosis for this admission?: Yes (5) Acute and chronic respiratory failure ([id number]) Is this a current diagnosis for this admission?: Yes (6) Chronic obstructive pulmonary disease (COPD) Is this a current diagnosis for this admission?: Yes (7) HTN (hypertension) Is this a current diagnosis for this admission?: Yes (8) CKD (chronic kidney disease) stage 4, GFR 15-29 ml/min Is this a current diagnosis for this admission?: Yes (9) Polypharmacy Is this a current diagnosis for this admission?: Yes - Assessment Summary: (1) Symptomatic anemia Is this a current diagnosis for this admission?: Yes Plan: Patient has generalized weakness perhaps syncopal episode and lightheadedness secondary to anemia. - Hgb 5.2>6.7 after 2 units PRBC - +ve occult blood - Iron studies low ferritin, iron 81.4 which is on the low side - s/p 1 U pRBC - Surgery following plan for colonoscopy and egd - on protonix - monitor daily CBC DVT prophylaxis with compression device. (2) Chronic GI bleeding Is this a current diagnosis for this admission?: Yes Plan: - Patient has a history of chronic GI bleed and has undergone EGD and colonoscopy. Last EGD/colonoscopy on file September [address] Gr showed rectal polyp that was removed via snare polypectomy. Internal hemorrhoids. 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 - currently just on sliding scale - will resume 70/30 after colonoscopy (4) Paroxysmal atrial fibrillation Is this a current diagnosis for this admission?: Yes Plan: He is in sinus rhythm now. - on fleicanide resumed - not on anticoagulation I assume because of his chronic GI bleeding Cardiac monitoring. (5) Acute and chronic respiratory failure ([id number]) Qualifiers: Respiratory failure complication: unspecified whether with hypoxia or hypercapnia Qualified Code(s): J96.20 - Acute and chronic respiratory failure, unspecified whether with hypoxia or hypercapnia Is this a current diagnosis for this admission?: Yes Plan: - due to COPD - on 4L of NC at baseline - does not seem to be on any inhaler per medrec - duoneb PRN (6) Chronic obstructive pulmonary disease (COPD) Qualifiers: COPD type: unspecified COPD Qualified Code(s): J44.9 - Chronic obstructive pulmonary disease, unspecified Is this a current diagnosis for this admission?: Yes Plan: - on 4L nasal cannula at home - not on any inhalers - continue duoneb PRN (7) HTN (hypertension) Qualifiers: Hypertension type: essential hypertension Qualified Code(s): I10 - Essential (primary) hypertension Is this a current diagnosis for this admission?: Yes Plan: - on losartan and verapamil (8) CKD (chronic kidney disease) stage 4, GFR 15-29 ml/min Is this a current diagnosis for this admission?: Yes Plan: Continue to monitor renal function. (9) Polypharmacy Is this a current diagnosis for this admission?: Yes - Additional Information Resuscitation Status: Full Code Discharge Diet: As Tolerated Discharge Activity: Activity As Tolerated Referrals: BENIGNO MELO MD [Primary Care Provider] - 06/01/20 10:45 am Home Medications: Tramadol HCl 100 mg PO Q8HP PRN 10/10/14 Trazodone HCl [Desyrel 50 mg Tablet] 150 mg PO HSP PRN 10/10/14 Zolpidem Tartrate 10 mg PO HSP PRN 10/10/14 Flecainide Acetate [Tambocor 100 mg Tablet] 100 mg PO Q12 09/12/16 Verapamil HCl [Verapamil ER] 240 mg PO DAILY 09/12/16 Esomeprazole Magnesium [Nexium] 40 mg PO BID 10/29/17 Losartan Potassium [Cozaar 50 mg Tablet] 100 mg PO DAILY 10/29/17 Topiramate [Topamax] 50 mg PO Q12 10/29/17 Gabapentin [Neurontin] 1,600 mg PO QID 10/30/17 Hydroxyzine Pamoate [Vistaril 25 mg Capsule] 75 mg PO QHS 10/30/17 Atorvastatin Calcium [Lipitor 10 mg Tablet] 10 mg PO QHS 07/03/19 Insulin NPH Hum/Reg Insulin Hm [Humulin 70/30 Kwikpen] 60 unit SQ BID 07/03/19 Bumetanide 1 mg PO DAILY 05/26/20 Famotidine 40 mg PO DAILY 05/26/20 Gemfibrozil [Lopid 600 mg Tablet] 600 mg PO BID 05/26/20 Metolazone [Zaroxolyn 2.5 mg Tablet] 2.5 mg PO DAILY 05/26/20 Tamsulosin HCl [Flomax 0.4 mg Cap.sr] 0.4 mg PO DAILY 05/26/20 Venlafaxine HCl ER [Effexor Xr 75 mg Cap.sr] 225 mg PO DAILY 05/26/20 History of Present Illiness History of Present Illness: CHINA GIBSON is a 54 year old male, The patient has history of chronic anemia. He is suffering from chronic intermittent gastrointestinal bleeding now for years. His anemia is multifactorial, partially related to chronic kidney disease stage IV, partially to chronic gastrointestinal blood loss. He has bloody stools intermittently. He does not have any abdominal pain. He is not vomiting. The patient received 2 units of packed red blood cell transfusion in May 08. He came to the emergency department on May 16 with a hemoglobin of 5.9. He received 2 units of packed red blood cell transfusion then he left AGAINST MEDICAL ADVICE. 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 The patient reports intermittent bloody stool and black stool. He had endoscopy in 2013. No significant abnormality was found. He had capsule endoscopy as well. He did not have any endoscopic evaluation at least for about 3 or 4 years now. The patient is very poor historian and asking more details making him fairly angry therefore I needed to be really careful. Patient is complaining about some poor exercise tolerance and shortness of breath on exertion. He is lightheaded usually when he stands up. Prior to coming to the hospital he may have passed out but it is really hard to find out exactly what happened. Here in the emergency department the patient is hemodynamically stable. He did not have any sign of bleeding. He does not appear to be in any distress. Hospital Course Hospital Course: D2 Hospital stay. Patient was seen and examined at bedside. He has not had any bowel movement since thursday he said. He denied any abdominal pain, hematemesis, nausea or vomiting. I was able to speak to Dr. Demarco who plans to do a colonoscopy tomorrow. Repeat hgb post 2 u PRBC was 6.7, so 1 more unit was ordered. D3 Hospital stay. Patient was seen and examined at bedside. He stated that he had episodes of melena when he started drinking golytely. The melena eventually cleared up. He is scheduled to undergo both EGD and Colonoscopy today. repeat Hgb post 3 unit PRBC was 7.5. D4 hospital stay. Patient underwent EGD and colonoscopy by Dr. Demarco but they were unable to find a source of bleeding. The patient was discharged on stable hgb and was advised to continue iron and follow up with PCP. Physical Exam Vital Signs: Temp Pulse Resp BP Pulse Ox 98.2 F 63 20 141/69 H 96 05/28/20 10:15 05/28/20 10:15 05/28/20 10:15 05/28/20 10:15 05/28/20 10:15 Intake & Output 05/27/20 05/28/20 05/29/20 06:59 06:59 06:59 Intake Total 2860 960 150 Output Total 0 Balance 2860 960 150 Weight 108.2 kg 108.2 kg 109.2 kg General appearance: PRESENT: no acute distress, cooperative Head exam: PRESENT: atraumatic, normocephalic Eye exam: PRESENT: EOMI Mouth exam: PRESENT: moist Respiratory exam: PRESENT: clear to auscultation jey, symmetrical, unlabored Cardiovascular exam: PRESENT: RRR, +S1, +S2 GI/Abdominal exam: PRESENT: normal bowel sounds, soft Extremities exam: PRESENT: full ROM Musculoskeletal exam: PRESENT: full ROM Neurological exam: PRESENT: alert, awake, oriented to person, oriented to place, oriented to time, oriented to situation Psychiatric exam: PRESENT: normal mood Skin exam: PRESENT: normal color Results Laboratory Results: WBC 7.4 10^3/uL (4.0-10.5) 05/28/20 08:36 RBC 3.00 10^6/uL (4.35-5.55) L 05/28/20 08:36 Hgb 8.5 g/dL (13.5-17.0) L 05/28/20 08:36 Hct 25.4 % (37.9-51.0) L 05/28/20 08:36 MCV 85 fl (80-97) 05/28/20 08:36 MCH 28.3 pg (27.0-33.4) 05/28/20 08:36 MCHC 33.4 g/dL (32.0-36.0) 05/28/20 08:36 RDW 15.5 % (11.5-14.0) H 05/28/20 08:36 Plt Count 226 10^3/uL (150-450) 05/28/20 08:36 Lymph % (Auto) 15.4 % (13-45) 05/28/20 08:36 [place] % (Auto) 10.4 % (3-13) 05/28/20 08:36 Eos % (Auto) 4.6 % (0-6) 05/28/20 08:36 Baso % (Auto) 0.9 % (0-2) 05/28/20 08:36 Reticulocyte # 0.103 10^6/uL (0.028-0.122) 05/26/20 06:14 Absolute Neuts (auto) 5.1 10^3/uL (1.7-8.2) 05/28/20 08:36 Absolute Lymphs (auto) 1.1 10^3/uL (0.5-4.7) 05/28/20 08:36 Absolute Monos (auto) 0.8 10^3/uL (0.1-1.4) 05/28/20 08:36 Absolute Eos (auto) 0.3 10^3/uL (0.0-0.6) 05/28/20 08:36 Absolute Basos (auto) 0.1 10^3/uL (0.0-0.2) 05/28/20 08:36 Seg Neutrophils % 68.7 % (42-78) 05/28/20 08:36 Retic Count (auto) 4.48 % (0.66-2.85) H 05/26/20 06:14 PT 14.8 SEC (11.4-15.4) 05/26/20 00:19 INR 1.14 05/26/20 00:19 APTT 32.0 SEC (23.5-35.8) 05/26/20 00:19 Sodium 142.9 mmol/L (137-145) 05/28/20 08:36 Potassium 3.9 mmol/L (3.6-5.0) 05/28/20 08:36 Chloride 113 mmol/L (98-107) H 05/28/20 08:36 Carbon Dioxide 19 mmol/L (22-30) L 05/28/20 08:36 Anion Gap 11 (5-19) 05/28/20 08:36 BUN 26 mg/dL (7-20) H 05/28/20 08:36 Creatinine 2.01 mg/dL (0.52-1.25) H 05/28/20 08:36 Est GFR ( Amer) 42 (>60) L 05/28/20 08:36 Est GFR (MDRD) Non-Af 35 (>60) L 05/28/20 08:36 Glucose 103 mg/dL (75-110) 05/28/20 08:36 POC Glucose 119 mg/dL (70-110) H 05/28/20 06:19 Hemoglobin A1c % 4.6 % (4.7-6.0) L 05/27/20 04:59 Calcium 9.3 mg/dL (8.4-10.2) 05/28/20 08:36 Iron 81.4 ug/dL (49-181) 05/26/20 06:14 TIBC 408 ug/dL (250-450) 05/26/20 06:14 % Saturation 20 % 05/26/20 06:14 Ferritin 12.50 ng/mL (17.9-464.0) L 05/26/20 06:14 Total Bilirubin 0.5 mg/dL (0.2-1.3) 05/28/20 08:36 Direct Bilirubin 0.2 mg/dL (0.0-0.4) 05/28/20 08:36 Neonat Total Bilirubin Not Reportable 05/28/20 08:36 Neonat Direct Bilirubin Not Reportable 05/28/20 08:36 Neonat Indirect Bili Not Reportable 05/28/20 08:36 AST 36 U/L (17-59) 05/28/20 08:36 ALT 15 U/L (<50) 05/28/20 08:36 Alkaline Phosphatase 94 U/L (38-126) 05/28/20 08:36 Troponin I < 0.012 ng/mL 05/25/20 17:47 Total Protein 5.9 g/dL (6.3-8.2) L 05/28/20 08:36 Albumin 3.7 g/dL (3.5-5.0) 05/28/20 08:36 Vitamin B12 602.0 pg/mL (239-931) 05/26/20 06:14 Folate 4.73 ng/mL (>2.76) 05/26/20 06:14 TSH 2.04 uIU/mL (0.47-4.68) 05/27/20 04:59 POC Stool Occult Blood POSITIVE (NEGATIVE) 05/25/20 22:45 Influenza A (RT-PCR) NEGATIVE (NEGATIVE) 05/26/20 10:50 Influenza B (RT-PCR) NEGATIVE (NEGATIVE) 05/26/20 10:50 RSV (RT-PCR) NEGATIVE (NEGATIVE) 05/26/20 10:50 SARS-CoV-2 Rap RNA(RT-PCR) NEGATIVE (NEGATIVE) 05/26/20 10:50 Blood Type A POSITIVE 05/25/20 17:47 Blood Type Confirm A POSITIVE 05/25/20 17:47 Antibody Screen NEGATIVE 05/25/20 17:47 Crossmatch See Detail 05/25/20 17:47 05/25/20 17:47 Troponin I < 0.012 Plan Plan of Treatment: Continue PPI and iron supplements at home. Follow-up with primary care physician. Time Spent: Less than 30 Minutes Stroke Is this a Stroke Patient?: No Acute Heart Failure Is this a Heart Failure Patient?: No
== END 2020-05-28 11:05 | disposition home or self-care (01) | DRG 378 ==
LOC: ER 17:04 → EH 23:17 → 4N 05-26 02:56
PROVIDERS: ADMIT Internal Medicine; ATTEND Internal Medicine
PROC: 30233N1 Transfusion of Nonautologous Red Blood Cells into Peripheral Vein, Percutaneous Approach (ICD-10-PCS; 2020-05-25)
PROC: 30233N1 Transfusion of Nonautologous Red Blood Cells into Peripheral Vein, Percutaneous Approach (ICD-10-PCS; 2020-05-26)
PROC: 0DJ08ZZ Inspection of Upper Intestinal Tract, Via Natural or Artificial Opening Endoscopic (ICD-10-PCS; principal; 2020-05-27 14:30)
PROC: 0DJD8ZZ Inspection of Lower Intestinal Tract, Via Natural or Artificial Opening Endoscopic (ICD-10-PCS; 2020-05-27 14:30)
DX: K92.1 Melena (principal); J96.10 Chronic respiratory failure, unspecified whether with hypoxia or hypercapnia; N18.4 Chronic kidney disease, stage 4 (severe); D50.0 Iron deficiency anemia secondary to blood loss (chronic); D63.1 Anemia in chronic kidney disease; E11.22 Type 2 diabetes mellitus with diabetic chronic kidney disease; I12.9 Hypertensive chronic kidney disease with stage 1 through stage 4 chronic kidney disease, or unspecified chronic kidney disease; I25.10 Atherosclerotic heart disease of native coronary artery without angina pectoris; J44.9 Chronic obstructive pulmonary disease, unspecified; I48.0 Paroxysmal atrial fibrillation; K21.9 Gastro-esophageal reflux disease without esophagitis; G47.33 Obstructive sleep apnea (adult) (pediatric); I25.2 Old myocardial infarction; F17.200 Nicotine dependence, unspecified, uncomplicated; Z99.81 Dependence on supplemental oxygen; Z88.8 Allergy status to other drugs, medicaments and biological substances; Z88.0 Allergy status to penicillin; Z88.2 Allergy status to sulfonamides; Z86.711 Personal history of pulmonary embolism; Z86.73 Personal history of transient ischemic attack (TIA), and cerebral infarction without residual deficits; Z86.69 Personal history of other diseases of the nervous system and sense organs; Z95.0 Presence of cardiac pacemaker; Z86.010 Personal history of colon polyps; Z20.828 Contact with and (suspected) exposure to other viral communicable diseases
CPT/HCPCS: 36415; 36430; 43235; 45378; 71045; 80053; 813; 82270; 82607; 82728; 82746; 82962; 83036; 83540; 83550; 84443; 84484; 85025; 85045; 85610; 85730; 86850; 86900; 86901; 86920; 93005; 93010; 94660; 99140; 99285; 0241U; C9113; C9803; J0171; J1200; J1610; J1815; J2250; J2310; J2405; J2704; J3010; J3490; J7050; P9016

== ENCOUNTER → 2020-06-26 | Outpatient (CLI) | payer MEDICARE ==
[2020-06-26 12:57] LABS: ABSOLUTE BASOPHILS # (AUTO) 0.1 10^3/uL (0.0-0.2); ABSOLUTE EOSINOPHILS # (AUTO) 0.3 10^3/uL (0.0-0.6); ABSOLUTE LYMPHOCYTES (AUTO) 0.8 10^3/uL (0.5-4.7); ABSOLUTE MONOCYTES (AUTO) 0.7 10^3/uL (0.1-1.4); ABSOLUTE NEUT (AUTO) 6.1 10^3/uL (1.7-8.2); BASOPHILS % (AUTO) 1.3 % (0-2); EOSINOPHILS % (AUTO) 3.9 % (0-6); HEMATOCRIT 24.3 % (37.9-51.0); HEMOGLOBIN 8.1 g/dL (13.5-17.0); LYMPHOCYTES % (AUTO) 10.5 % (13-45); MEAN CORPUSCULAR HEMOGLOBIN 26.3 pg (27.0-33.4); MEAN CORPUSCULAR HGB CONC 33.1 g/dL (32.0-36.0); MEAN CORPUSCULAR VOLUME 79 fl (80-97); MONOCYTES % (AUTO) 8.6 % (3-13); PLATELET COUNT 266 10^3/uL (150-450); RED BLOOD COUNT 3.07 10^6/uL (4.35-5.55); RED CELL DISTRIBUTION WIDTH 16.4 % (11.5-14.0); SEGMENTED NEUTROPHILS % (AUTO) 75.7 % (42-78); TOTAL CELLS COUNTED % (AUTO) 100 %
[2020-06-26 13:01] LABS: APPEARANCE,URINE CLEAR; BILIRUBIN,URINE NEGATIVE (NEGATIVE); COLOR,URINE YELLOW; GLUCOSE, URINE 50 mg/dL (NEGATIVE); KETONES,URINE NEGATIVE (NEGATIVE); LEUKOCYTE ESTERASE,URINE NEGATIVE (NEGATIVE); NITRITE,URINE NEGATIVE (NEGATIVE); PROTEIN,URINE NEGATIVE (NEGATIVE); URINE SPECIFIC GRAVITY 1.014; UROBILINOGEN,URINE NEGATIVE mg/dL (<2.0)
[2020-06-26 13:22] LABS: ALBUMIN 3.7 g/dL (3.5-5.0); ANION GAP 10 (5-19); BLOOD UREA NITROGEN 21 mg/dL (7-20); CALCIUM 9.3 mg/dL (8.4-10.2); CARBON DIOXIDE 21 mmol/L (22-30); CHLORIDE 111 mmol/L (98-107); GLUCOSE 136 mg/dL (75-110); IRON(TIBC) 16.4 ug/dL (49-181); PHOSPHORUS 3.4 mg/dL (2.5-4.5); POTASSIUM 4.6 mmol/L (3.6-5.0)
[2020-06-27 13:37] LABS: CREATININE URINE 80.8 mg/dL (Not Estab.); MICROALBUMIN URINE 6.8 ug/mL (Not Estab.)
== END ==
LOC: OD 12:15
PROVIDERS: ATTEND Internal Medicine Nephrology
DX: N18.4 Chronic kidney disease, stage 4 (severe) (principal); D63.1 Anemia in chronic kidney disease
CPT/HCPCS: 36415; 80069; 81001; 82043; 82306; 82570; 82728; 83540; 83550; 83970; 85025

== ENCOUNTER 2020-07-04 07:48 | Outpatient (CLI) | payer MEDICARE ==
[2020-07-04 08:12] VITALS: BP 138/62
== END 2020-07-04 08:52 | disposition home or self-care (01) ==
LOC: II 07:48 → 5TH 07:52 → II 08:52
PROVIDERS: ATTEND Internal Medicine Hematology & Oncology
DX: D50.9 Iron deficiency anemia, unspecified (principal); K90.9 Intestinal malabsorption, unspecified
CPT/HCPCS: 96365; Q0138; J7050

== ENCOUNTER 2020-07-11 07:51 | Outpatient (CLI) | payer MEDICARE ==
[~2020-07-11 07:51] MED LIST changes: +FERUMOXYTOL (ESRD) 510 MG/NS 100 ML IV PRN; -FERUMOXYTOL 510 MG in NORMAL SALINE 100 ML IV PRN
[2020-07-11 09:00] VITALS: BP 122/53
== END 2020-07-11 09:45 | disposition home or self-care (01) ==
LOC: II 07:51 → 5TH 07:52 → II 09:45
PROVIDERS: ATTEND Internal Medicine Hematology & Oncology
DX: D50.9 Iron deficiency anemia, unspecified (principal); K90.9 Intestinal malabsorption, unspecified
CPT/HCPCS: 96365; Q0139; J7050